=== PATIENT | female | born 1945 | race Hispanic/Latino ===

== ENCOUNTER 2020-05-10 06:31 | Day surgery (SDC) | payer OTHER ==
--- NOTE | 2020-05-08 12:47 | RAD REPORT ---
EXAM DESCRIPTION: RAD - Chest Pa And Lat (2 Views) - 05/08/2020 12:35 pm CLINICAL HISTORY: PRE OP FOR SURGERY, pending cardiac catheterization, history of bilateral breast c arcinoma and bilateral mastectomy COMPARISON: None TECHNIQUE: Frontal and lateral views of the chest were obtained. FINDINGS: The lungs are clear of a peripheral mass or consolidation. Fibrotic pattern is present. Ch ronic disease could potentially mask very minimal interstitial edema or infiltrate. Pattern is belie gina be baseline given the absence any acute respiratory symptoms. Granulomas are present. No hilar ma ss or lymphadenopathy. Heart size is normal and central vasculature is within normal limits. No pleu ral effusion or pneumothorax seen. Bones are osteopenic. No acute thoracic compression fracture fall or other acute bone process seen. No aortic abnormality. IMPRESSION: Fibrotic lung pattern with no acute cardiopulmonary finding.
[2020-05-08 12:55] LABS: Basophils % 0.7 % (0-1.3); Hematocrit 38.5 % (36.0-45.0); MPV 7.8 fL (7.6-11.3); RBC Red Blood Cell Count 3.37 M/uL (3.86-4.86)
[2020-05-08 12:56] LABS: Protime INR 1.06
[2020-05-08 13:04] LABS: Potassium 3.8 mmol/L (3.5-5.1)
[2020-05-08 13:55] LABS: Blood Morphology Comment NOTED (NOT SEEN); Macrocytosis 2+; Platelet Estimate ADEQ; White Blood Cell Scan OK (OK)
--- OUTSIDE RECORDS SUMMARY | 2020-05-10 06:33 | XMS REPORT | Continuity of Care Document ---
:1945 Author Organization [facility] t Address [address] [place] [address] Care Team Providers Name Role Phone Wendy VICENTE Primary Care Physician Unavailable Wendy VICENTE Attending Clinician Unavailable Payers Payer Name Policy Type Policy Number Effective Date Expiration Date Laura sparks MEDICARE PART A [id number] 2008 AND B 00:00:00 c3 creations [id number] 2013 00:00:00 Problems Condition Condition Condition Status Onset Resolution Last Treating Co mments Source Name Details Category Date Date Treatment Clinician Date Hypertensi Hypertensi Diagnosis Active [facility] Lactose Lactose Problem Active [facility] intoleranc intoleranc Genie kes - e e [facility] Other Other Problem Active [facility] osteoporos osteoporos Genie kes - is without is without Me moria current current l pathologic pathologic Ou tpati al al ent fracture fracture Clinic s Other iron Other iron Diagnosis Active [facility] deficiency deficiency Genie kes - anemia anemia [facility] History of History of Problem Active [facility] breast breast [facility] cancer [facility] Stage 3 Stage 3 Diagnosis Active [facility] chronic chronic [facility] kidney [facility] disease disease l [facility] Vitamin D Vitamin D Problem Active [facility] deficiency deficiency Genie kes - [facility]ics Hypertrigl Hypertrigl Problem Active [facility] yceridemia yceridemia Genie kes - [facility] Vitamin B Vitamin B Problem Active [facility] 12 12 [facility] - deficiency deficiency Me moria l [facility] Reactive Reactive Problem Active [facility] depression depression Genie kes - [facility] Mixed Mixed Problem Active [facility] stress and stress and Genie kes - urge urge Memoria urinary urinary l incontinen incontinen Ou tpati ce ent [facility] Hyperlipid Hyperlipid Diagnosis Active [facility] emia emia [facility] Acute Acute Problem Active [facility] cystitis cystitis [facility] - without without Memoria hematuria hematuria l [facility] Allergies, Adverse Reactions, Alerts Allergy Allergy Status Severity Reaction(s) Onset Inactive Treating Comm ents Source Name Type Date Date Clinician ingested Adverse Active IBS-D [facility] chlorine Reaction [facility] all Adverse Active itching [facility] narcotic Reaction [facility] Hydrocor Adverse Active itching [facility] tisone Reaction [facility] Medications Ordered Filled Start Stop Current Ordering Indication Dosage Frequency Signature Comments Components Source Medication Medication Date Date Medication? Clinician (SIG) Name Name Nystatin Nystatin Yes Steph [address] [facility] 8-22 [place] applicatio [facility] - 00:00: n to Memoria 00 affected l area [facility] Calcium 500 Calcium 500 Yes Steph [address] [facility] [place] after a [facility] Garlic Oil Garlic Oil Yes Steph as [facility] [place] directed [facility] Benadryl Benadryl Yes Steph [address] [facility] Allergy Allergy [place] bedtime [facility] [id number] [id number] Yes Steph as [facility] [place] directed [facility] Multi Multi Yes Steph as [facility] Complete Complete [place] directed Genie kes - Memoria l [facility] CoQ10 CoQ10 Yes Steph 1 1/[address] [facility] [place] [facility] Folic Acid Folic Acid Yes Steph [address] [facility] [place] [facility] Glucosamine Glucosamine Yes Steph [address] [facility] [place] [facility] Isosorbide Isosorbide Yes Steph [address] [facility] Mononitrate Mononitrate [place] in the [facility] ER morning [facility]oria l [facility] Vagifem Vagifem Yes Steph [address] [facility] [place] [facility] Niacin Niacin Yes Steph 1 capsule [facility] Flush-Free Flush-Free [place] Genie kes - Ex [facility] Tylenol # 3 Tylenol # 3 Yes Steph one to two [facility] [place] tab [facility] Fenofibrate Fenofibrate Yes Steph [address] [facility] [place] with food k[facility] Fish Oil Fish Oil Yes Steph [address] [place] [facility] Ginkoba Ginkoba Yes Steph as [facility] [place] directed k[facility] Amlodipine Amlodipine Yes Steph [address] [facility] Besylate Besylate [place] [facility] Magnesium Magnesium Yes Steph [address] [facility] [place] with a [facility] Iron Iron Yes Steph [address] [facility] [place] [facility]ics Hydrochloro Hydrochloro Yes Steph TAKE [address] [facility] thiazide thiazide [place] TABLET BY L ukes - MOUTH ONCE Memoria DAILY IN l THE [facility] MORNING ent Clinics Losartan Losartan Yes Steph TAKE [address] [facility] Potassium Potassium [place] TABLET BY [facility] - MOUTH ONCE Memoria DAILY l [facility] Oxybutynin Oxybutynin No Steph TAKE [address] [facility] Chloride Chloride 05-17 [place] TABLET BY [facility] - 00:00 MOUTH Memoria :00 TWICE l DAILY [facility] Vital Signs Vital Name Observation Time Observation Value Comments Source WEIGHT 2020-03-29 13:11:30 72 kg Procedures This patient has no known procedures. Encounters Start End Encounter Admission Attending Care Care Encounter Source Date/Time Date/Time Type Type Clinicians Facility Department ID 2021-03-29 2021-03-29 Outpatient ROBIN VICENTE MDA MDA [id number] 00:00:00 00:00:00 GUILLE grier 2020-04-25 2020-04-25 Outpatient Ana Rosa Booth [id number] [facility] 10:40:00 10:40:00 [facility] Medicine Outpati ent Clinics 2020-03-29 2020-03-29 Outpatient ROBIN VICENTE MDA MDA [id number] 12:57:15 14:19:09 GUILLE grier 2019-10-19 2019-10-19 [facility] [id number] 14:40:00 14:40:00 [facility] Medicine Outpati ent Clinics 2019-09-29 2019-09-29 [facility] [id number] [facility] 13:36:00 13:36:00 [facility] Medicine Outpati ent Clinics 2019-04-28 2019-04-28 [facility] [id number] [facility] 11:44:00 11:44:00 t [facility] l Outpati ent Clinics 2019-04-26 2019-04-26 [facility] [id number] 14:30:00 14:30:00 t [facility] Medicine Outpati ent Clinics 2019-04-22 2019-04-22 [facility] [id number] 11:20:00 11:20:00 t [facility] Medicine Outpati ent Clinics 2019-04-20 2019-04-20 [facility] [id number] [address] 14:00:00 14:00:00 t [facility] Medicine Outpati ent Clinics 2018-12-16 2018-12-16 [facility] [id number] 11:59:00 11:59:00 t [facility] Medicine Outpati ent Clinics 2018-05-04 2018-05-04 [facility] [id number] [address] 10:15:00 10:15:00 t [facility] Medicine Outpati ent Clinics 2018-04-26 2018-04-26 [facility] [id number] 09:00:00 09:00:00 t [facility] Medicine Outpati ent Clinics 2018-04-21 2018-04-21 [facility] [id number] 09:30:00 09:30:00 t [facility] Medicine Outpati ent Clinics Results This patient has no known results.
--- OUTSIDE RECORDS SUMMARY | 2020-05-10 06:33 | XMS REPORT ---
:1945 Author Organization [employer] Care Team Providers Name Role Phone Steph Trujillo Provider Role Unavailable Allergies, Adverse Reactions, Alerts Substance Reaction Event Type Hydrocortisone itching Drug Allergy ingested chlorine IBS-D Non Drug Allergy all narcotics itching Non Drug Allergy Problems Problem Type Condition Code Onset Dates Condition Statu s Problem History of breast cancer Z85.3 Act [place] Problem Mixed stress and urge urinary N39.46 Active incontinence Problem Other iron deficiency anemia D50.8 Active Problem Reactive depression F32.9 Active Problem Stage 3 chronic kidney disease N18.3 Active Problem Acute cystitis without hematuria N30.00 Active Problem Hyperlipidemia E78.5 Active Problem Vitamin D deficiency E55.9 Active Problem Hypertriglyceridemia E78.1 Active Problem Vitamin B 12 deficiency E53.8 Acti ve Assessment Other iron deficiency anemia D50.8 Active Assessment Hyperlipidemia E78.5 Active Problem Hypertension I10 Active Assessment Stage 3 chronic kidney disease N18.3 Active Problem Other osteoporosis without current M81.8 Active pathological fracture Assessment Hypertension I10 Active Problem Lactose intolerance E73.9 Active Medications Medication Code Code Instructions Start End Status Dosage System Date Date Multi Complete [facility] 61189873991 - Orally Active as d irected Fish Oil [facility] 34160255040 1000 MG Orally Active 1 ca psule Once a day Calcium 500 [facility] 75022080882 500-250-200 Active 1 ta blet MG-MG-UNIT after a meal Orally Once a day Vagifem [facility] 05121943767 10 MCG Vaginal Active 1 tab let Two times a Week Ginkoba [facility] 64957919880 40 MG Orally Active as dire cted Niacin Flush-Free Ex [facility] 92482657139 750 MG Orally A ctive [address] Once a day Benadryl Allergy ND 32431307042 25 MG Orally Active 1 tab at at HS bedtime Tylenol # 3 NDC 0 300/30mg PO Active one to t wo PRN tab Garlic Oil [facility] 10782281971 2 MG Orally Active as di rected Isosorbide [facility] 81200378850 30 MG Orally Active 1 ta blet in Mononitrate ER Once a day the mo rning Glucosamine ND 16651922294 500 MG Orally Active 1 capsule Three times a with a helen l day Oxybutynin Chloride ND 23540320519 5 MG Active TAKE 1 TABLET BY MOUTH TWICE DAILY Hydrochlorothiazide ND 83094763690 12.5 MG Active TAKE 1 TABLET BY MOUTH ONCE DAILY IN THE MORNING CoQ10 ND 06594553667 50 MG Orally Active 1 /2 t abs Once a day with a meal Fenofibrate ND 62691675161 160 MG Orally Active 1 tablet Once a day with food Folic Acid ND 07269499236 1 MG Orally Active 1 tab let Once a day Nystatin ND 47114649701 401776 UNIT/GM Mar Active 1 Externally , application Twice a day 2017 to affected area Amlodipine Besylate ND 36163131037 10 MG Orally Act [place] 1 tablet Once a day Losartan Potassium ND 60037078248 50 MG Active T FLORA 1 TABLET BY MOUTH ONCE DAILY Magnesium ND 01686167940 250 MG Orally Active 1 ta blet Once a day with a meal Iron ND 62651421607 28 MG Orally Active 1 table t Once a day K41-Yrztzw ND 77083521613 1 MG Orally Active as di rected Results No Known Results Summary Purpose [employer] Submission
[2020-05-10] MEDS ORDERED: HEPA 1000U/500MLS 2,000 UNIT/1,000 ML BAG IV ONE (06:55)
[2020-05-10] MEDS ORDERED: LIDOCAINE 1% MPF 30 ML VIAL ONE (06:55)
[2020-05-10] MEDS ORDERED: NA CHLORIDE 0.9% 500 ML ONE (07:05)
[2020-05-10] MEDS ORDERED: MIDAZOLAM HCL 2 MG/2 ML INJ ONE (07:33)
[2020-05-10] MEDS ORDERED: FENTANYL CITR 100 MCG/2 ML ONE (07:35)
[2020-05-10] MEDS ORDERED: NA CHLORIDE 0.9% 0 ML ONE (07:35)
[2020-05-10] MEDS ORDERED: ATROPINE SULF 1 MG/10 ML SYR IV ONE (07:35)
[2020-05-10] MEDS ORDERED: DIPHENHYDRAMINE 50 MG/ML VIAL ONE (07:43)
--- NOTE | 2020-05-10 09:49 | OP ---
Date of Procedure: 05/10/2020 Surgeon: Vicente Clemens MD Fork Truck Driver: Selina Rosenthal. Indications For Procedure: CAD, CVD, and PAD. She had an abnormal carotid Doppler, chest pain. Cla udication was positive arterial Doppler of the lower extremities. Procedure: Selective bilateral carotid angiogram, left heart catheterization with selective coronary arteriogram and abdominal angiogram. Description Of Procedure: The patient was brought to the screedman/laborer today as an inpatient, prepped and draped in the routine sterile fashion. She was given Benadryl, fentanyl, and Versed for sedation. 10 cc of xylocaine were used to anesthetize the right groin. Using the Seldinger technique, 6-Mongolian sheath was introduced in the right common femoral artery. Angio-Seal was used to close the case. I nitially, a JR4 catheter was introduced into the aortic arch. We selected the right common carotid a rtery and then the left common carotid artery. Angiography there showed a 60% left ICA and 90% right ICA. Following that, the JR4 was used to cannulate the RCA, which showed pchh-fi-kctopivy plaquing was codominant. We used an exchange length wire to place a JL4 into the left main, which was normal. Circumflex had mild plaquing, it was codominant. She had about 30% proximal LAD with calcification . The JL4 was removed. A pigtail catheter was inserted over the wire above the kidneys. Angiograph y there showed a 50% left renal artery stenosis, 50% distal aortic stenosis within an old stent and a 50% right common iliac artery. Complications: There were no complications. Estimated Blood Loss: 5 mL. Postoperative Diagnoses: Severe cerebral vascular disease on the right internal carotid artery. She had moderate renal artery stenosis, mild coronary artery disease, and moderate peripheral arterial d isease. Plan: Right carotid endarterectomy. The rest of her will be medical therapy for now unless symptoms worsen. Anesthesia: Total conscious sedation was 60 minutes. A CD will be sent to Dr. Harlan Varela for review and an appointment for carotid endarterectomy in the near future. Please note that the patient had elevated creatinine of 1.4, she got Mucomyst befor e the procedure. We will do Mucomyst after the procedure. I will hydrate her with normal saline 125 mL an hour for 8 hours and then after that, we will put her at . I will check a CBC and B MP in the morning. NORI/DONAVON Voice ID: [id number] Report ID: [id number]
[2020-05-10 10:37] VITALS: BMI 28.5
[2020-05-10] MEDS ORDERED: NITROGLYCERIN 0.4 MG/TAB SL PRN (11:00)
[2020-05-10] MEDS ORDERED: ACETAMINOPHEN 325 MG TABLET PO PRN (11:00)
[2020-05-10] MEDS ORDERED: NA CHLORIDE 0.9% 1,000 ML IV SCH (11:00)
--- NOTE | 2020-05-10 13:25 | HP ---
Date of Admission: 05/10/2020 History Of Present Illness: The patient is a 74-year-old white woman, who was admitted today after a ngiography for observation of her right groin and observation of her kidney function. Ms. Jimenez is 74, has a history of hypertension, dyslipidemia. She has a history of peripheral arterial disease , status post [id number]-xb-xlezl stent. Had an abnormal carotid Doppler. Had chest pain consistent with angina. She had an abnormal arterial Doppler. She was scheduled today for multiple studies. She u nderwent a catheterization, which showed minimal coronary artery disease. Abdominal angiogram showed 50% stenosis in the distal aorta, 50% stenosis in the left renal, 50% stenosis in the right common i liac with a stent. She had about a 60% to 70% left internal carotid and she had an 80% to 90% right internal carotid stenosis. Her creatinine is 1.4. She was given Mucomyst before and she will be giv en Mucomyst after the procedure. We decided to watch her as per her request because she has had issu es with her going after angiography. Past Medical History: As stated above. Allergies: NONE. Review of Systems: Negative. Social History: Negative. Family History: Negative. Medications: At home include Cozaar, Norvasc, fish oil, and multiple other vitamins. Physical Examination: Vital Signs: Stable, afebrile. HEENT: Negative. Neck: Revealed a carotid bruit on the right. No JVD. No thyromegaly. Chest: Clear. Cardiac: Revealed a regular rhythm and rate. No murmurs, gallops, or rubs. Abdomen: Benign. Extremities: Revealed no clubbing, cyanosis, or edema. Diagnostic Data: Normal except a creatinine of 1.4. Impression And Plan: 1.Carotid stenosis requiring right carotid endarterectomy. Left carotid will be observed. 2.Peripheral vascular disease. We will treat with medications for now. 3.Mild coronary artery disease. 4.Hypertension. 5.Dyslipidemia. 6.Renal insufficiency. We will observe her overnight. She will be at bedrest for 4-6 hours. CBC and BMP will be done in th e morning. She will be given another Mucomyst. Her surgery on the right carotid will be arranged as an outpatient. Dr. Telles will probably do the surgery. A CD will be sent to him today. I will disc harge Ms. Jimenez in the morning. NORI/DONAVON Voice ID: [id number]
[2020-05-11 04:06] LABS: Basophils % 0.5 % (0-1.3); Hematocrit 29.9 % (36.0-45.0); Lymphocytes % 33.5 % (15.3-44.8); MPV 7.8 fL (7.6-11.3); RBC Red Blood Cell Count 2.64 M/uL (3.86-4.86)
[2020-05-11 04:13] LABS: Potassium 3.8 mmol/L (3.5-5.1)
[2020-05-11 08:21] VITALS: BP 120/58; TEMP 98.5
[2020-05-11 08:27] VITALS: O2SAT 97
[2020-05-11] MEDS ORDERED: LOSARTAN POTASSIUM 50 MG TABLET PO SCH (09:00)
[2020-05-11] MEDS ORDERED: AMLODIPINE 10 MG TAB PO SCH (09:00)
--- NOTE | 2020-05-12 05:48 | DS ---
Date of Discharge: 05/11/2020 Hospital Course: Ms. Jimenez is a 74-year-old white woman, who was admitted yesterday following a carotid angiogram, heart catheterization, and abdominal angiogram. She was admitted because of her w orrying about her right groin because of previous complication as well as her renal function, which w as going to be watched. She was hydrated with 1 L of normal saline. She was given Mucomyst before a nd after the procedure. Today, her creatinine is slightly elevated at 1.52. She has no complaint. Her right groin site is intact. Yesterday, she was found to have severe right carotid artery stenosi s, had the plan for her to have a right carotid endarterectomy by Dr. Cornelius, she has CD and we will contact Dr. Cornelius to follow her in the very near future. She had some mild CAD and she had a 50% stenosis of her left renal, 50% stenosis of her distal aorta within a stent and she also had 50% sten osis in the right common iliac also within a stent. The patient discharge instruction was to follow up with Dr. Cornelius as soon as possible. Follow up with me in 2 weeks. Continue her present regimen at home. Have her do no heavy lifting in the next 48 hours. Maintain a low-fat, low-cholesterol di et. Her discharge medication were the same as her admission medication that include amlodipine, Tric or, losartan, hydrochlorothiazide. NORI/NAVJOTL Voice ID: [id number] Report ID: [id number]
== END 2020-05-11 10:27 | disposition home or self-care (01) ==
LOC: CCL 06:31 → 4TH 09:41 → CCL 05-11 10:27
DX: I65.23 Occlusion and stenosis of bilateral carotid arteries (principal); I70.211 Atherosclerosis of native arteries of extremities with intermittent claudication, right leg; I25.110 Atherosclerotic heart disease of native coronary artery with unstable angina pectoris; I70.1 Atherosclerosis of renal artery; T82.856A Stenosis of peripheral vascular stent, initial encounter; R01.1 Cardiac murmur, unspecified; I10 Essential (primary) hypertension; E78.5 Hyperlipidemia, unspecified; N28.9 Disorder of kidney and ureter, unspecified; Z87.891 Personal history of nicotine dependence; Z98.61 Coronary angioplasty status; Z20.828 Contact with and (suspected) exposure to other viral communicable diseases; Z82.49 Family history of ischemic heart disease and other diseases of the circulatory system
CPT/HCPCS: 85025 ×2; 80048 ×2; 36415 ×2; 85610; 85730; 71046; 75630; 93454; 36222; U0002; C1893; C1760; J1200; J2250; J3010; J7040; J1644; J0583

== ENCOUNTER 2021-04-09 15:55 | Emergency (ER) | payer OTHER ==
--- OUTSIDE RECORDS SUMMARY | 2021-04-09 16:01 | XMS REPORT | Continuity of Care Document ---
:1945 Author Organization [facility] t Address [address] [place] [address] Care Team Providers Name Role Phone CINTHIA, A Primary Care Physician Unavailable CINTHIA, A Attending Clinician Unavailable Trisha Vernon RN Attending Clinician Naa Cornelius MD Attending Clinician NAA CORNELIUS Attending Clinician Unavailable Estuardo Lorenzo MD Attending Clinician Daniel Callejas Attending Clinician Shalonda Romero MD Attending Clinician NAA CORNELIUS Admitting Clinician Unavailable Payers Payer Name Policy Type Policy Number Effective Date Expiration Source Date MEDICARE PART A AND B [id number] 2008 00:00:00 [employer] [id number] 2013 00:00:00 MEDICAREMEDICARE A [id number] 2008 ALEX Sanchez t [id number] 2008 00:00:00 [facility] M[facility] [id number] SUPPLEMENT/INDIVIDUAL 00:00:00 Dawna es - GENERIC MEDICARE Medical [id number]-PresentMedigap Problems Condition Condition Condition Status Onset Resolution Last Treating Co mments Source Name Details Category Date Date Treatment Clinician Date Stenosis Stenosis Disease Active [facility]28 [facility] - carotid carotid 00:00: Medical artery artery 00 Center Carotid Carotid Disease Active [facility] artery artery 05-28 kes - disease disease 00:00: Medical 00 Center Bilateral Bilateral Disease Active [facility] carotid carotid 05-14 [facility] artery artery 00:00: Medical occlusion occlusion 00 Cent er Essential Essential Disease Active [facility] hypertensi hypertensi 05-14 Genie kes - on on 00:00: Medical 00 [place] 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:00: Medical coronary coronary 00 Center artery of artery of [place] 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 Drug Active Itching, Itching [facility] Devices Allergy Other (See 02-01 with all Genie kes - Comments) 00:00: narcotic Medic al [address] [place] [address] Other Propensi Active Other (See Beta [facility] ty to Comments) 02-01 blockers [facility] - adverse 00:00: cause Medical reaction 00 extreme Center s fatigue ingested Adverse Active IBS-D [facility] chlorine Reaction [facility] Clinics all Adverse Active itching [facility] narcotic Reaction [facility] Clinics Hydrocor Adverse Active itching [facility] tisone Reaction [facility] Family History Family Member Diagnosis Comments Start Date Stop Date Source Natural father Heart disease [facility] Natural mother Cancer [facility] Center Natural mother Heart disease [facility] Natural mother Hypertension [facility] Social History Social Habit Start Date Stop Date Quantity Comments Source History of Current smoker ALEX Lemus es - tobacco use Medical Cente r Sex Assigned At [facility] Tobacco use and 2020-06-06 2020-06-06 Never used [facility] - exposure 00:00:00 00:00:00 Medical Center Alcohol intake 2020-06-06 2020-06-06 Current drinker ALEX castano [facility] - 00:00:00 00:00:00 of alcohol Medical Center (finding) Smoking Status Start Date Stop Date Source Former smoker 2020-06-06 00:00:00 2020-06-06 00:00:00 [facility] Medications Ordered Filled Start Stop Current Ordering Indication Dosage Frequency Signature Comments Components Source Medication Medication Date Date Medication? Clinician (SIG) Name Name mINOCYCLine 2019-08 100mg Q.5D Take [address] (DYNACIN) 0-27 03 tablet [facility] - 100 MG 00:00: 23:59 (100 mg Medical tablet 00 :00 total) by Center mouth 2 (two) times daily for 7 days. acetaminoph 2019-08 Yes 1{tbl} Take [address] en-codeine 0-07 tablet by Luke s - (TYLENOL 11:01: mouth Medical #3) 300-30 38 every 4 Center mg per (four) tablet hours as needed for Pain. cyanocobala 2019-08 Yes 1000ug Inject [facility] min 0-07 1,000 mcg [facility] - (VITAMIN 11:01: intramuscu Med ical B-12) 1,000 38 larly Center mcg/mL once. injection amLODIPine 2019-08 Yes 10mg QD Take [address] (NORVASC) 0-07 by mouth [facility] - 10 MG 11:01: daily. Medical tablet 38 Center losartan 2019-08 Yes 100mg QD Take [address] (COZAAR) 0-07 mg by [facility] - 100 MG 11:01: mouth Medical tablet 38 daily. [place] hydrochloro 2019-08 Yes 12.5mg QD Take 12.[address] thiazide 0-07 mg by [facility] - (HYDRODIURI 11:01: mouth Medic al L) 12.5 MG 38 daily. Center tablet folic acid 2019-08 Yes 1mg QD Take [address] (FOLVITE) 1 0-07 by mouth Luke s - MG tablet 11:01: daily. Medica l 38 [place] oxybutynin 2019-08 Yes 5mg Q.5D Take [address] (DITROPAN) 0-07 by mouth 2 Dawna es - 5 MG tablet 11:01: (two) Medic al 38 times Center daily . fenofibrate 2019-08 Yes 160mg QD Take [address] (TRIGLIDE,L 0-07 mg by [facility] - OFIBRA) 160 11:01: mouth Medic al MG tablet 38 daily. [place] estradiol 2019-[address] (VAGIFEM) 0-07 mcg [facility] - 25 mcg 11:01: vaginally Medica l vaginal 38 daily. [place] tablet nitrofurant 2019-08 Yes 100mg QD Take [address] oin, 0-07 mg by [facility] - macrocrysta 11:01: mouth Medic al l-monohydra 38 daily . Jamale faizan te, (MACROBID) 100 MG capsule garlic 2019-08 Yes Take by [facility] (GARLIC 0-07 mouth. [facility] - OIL) 1,000 11:01: Medical mg Cap 38 [place] ginkgo 2019-08 Yes Take by [facility] biloba 40 0-07 mouth. [facility] - mg Tab 11:01: Medical 38 [place] multivitami 2019-08 Yes 1{tbl} QD Take [address] n with 0-07 tablet by [facility] - minerals 11:01: mouth Medical tablet 38 daily. [place] ascorbic 2019-08 Yes 1000mg QD Take 1,[address] acid 0-07 mg by [facility] - (VITAMIN C) 11:01: mouth Medic al 1000 MG 38 daily. [place] tablet glucosamine 2019-08 Yes 1{tbl} Q.[id number] Take [address] -chondroiti 0-07 [id number] tablet by [facility] - n 500-400 11:01: 3D mouth 3 Medic al mg tablet 38 (three) Center times daily. niacin 500 2019-08 Yes 500mg Take [address] MG tablet 0-07 mg by [facility] - 11:01: mouth Medical 38 daily with Center breakfast. iron 30 mg 2019-08 Yes Take by [facility] Tab 0-07 mouth. [facility] - 11:01: Medical 38 [place] coenzyme 2019-08 Yes 100mg QD Take [address] Q10 100 mg 0-07 mg by [facility] - capsule 11:01: mouth Medical 38 daily. [place] cholecalcif 2019-08 Yes 5000U QD Take 5,[address] ankita, 0-07 Units by [facility] - vitamin D3, 11:01: mouth Medic al 5,000 unit 38 daily. [place] Tab magnesium 2019-08 Yes 250mg Take [address] 250 mg Tab 0-07 mg by [facility] - tablet 11:01: mouth. Medical 38 [place] isosorbide 2020- No 30mg Q.25D Take [address] dinitrate 9-14 09-14 by mouth 4 Dawna es - (ISORDIL) 11:22: 00:00 (four) Medic al 30 MG 43 :00 times Center tablet daily. ALPRAZolam Yes .5mg Take 0.[address] (XANAX) 0.5 9-08 mg by [facility] - MG tablet 00:00: mouth as Medi judson 00 needed. [place] isosorbide Yes Comments: [facility] mononitrate 4-11 | Filled Luke s - (IMDUR) 30 00:00: Date: Apr Me dical MG 24 hr 00 2018 Center tablet 12:00AM Duration: 90 Nystatin Nystatin Yes Steph [address] [facility] 8-22 [place] applicatio [facility] - 00:00: n to Memoria 00 affected l area [facility] Clinics Calcium 500 Calcium 500 Yes Steph [address] [place] after a [facility] - meal Memoria l [facility] ent [facility] Garlic Oil Garlic Oil Yes Steph as [facility] [place] directed [facility] Benadryl Benadryl Yes Steph [address] [facility] Allergy Allergy [place] bedtime [facility] [id number] Yes Steph as [facility] [place] directed [facility] Multi Multi Yes Steph as [facility] Complete Complete [place] directed Genie kes - [facility] Clinics CoQ10 CoQ10 Yes Steph 1 1/[address] [place] with a [facility]ukes - meal Memoria l [facility] ent [facility] Folic Acid Folic Acid Yes Steph [address] [place] [facility]ics Glucosamine Glucosamine Yes Steph [address] [place] with a [facility] - meal [facility] Clinics Isosorbide Isosorbide Yes Steph [address] Mononitrate Mononitrate [place] in the [facility] - ER ER morning [facility] Clinics Vagifem Vagifem Yes Steph [address] [place] [facility] Clinics Niacin Niacin Yes Steph 1 capsule [facility] Flush-Free Flush-Free [place] Genie kes - Ex [facility] Ex [facility] Clinics Tylenol # 3 Tylenol # 3 Yes Steph one to two [facility] [place] tab kes - [facility] Clinics Fenofibrate Fenofibrate Yes Steph [address] [place] with food [facility] Clin[facility] Fish Oil Fish Oil Yes Steph [address] [place] [facility] Yes Steph as [facility] [place] directed [facility] Clinics Amlodipine Amlodipine Yes Steph [address] Besylate Besylate [place] [facility] Clinics Magnesium Magnesium Yes Steph [address] [place] with a [facility]ukes - meal [facility] Clinics Iron Iron Yes Steph [address] [place] [facility] Clinics Hydrochloro Hydrochloro Yes Steph TAKE [address] thiazide thiazide [place] TABLET BY L ukes - MOUTH ONCE Memoria DAILY IN l THE [facility] MORNING ent Clinics Losartan Losartan Yes Steph TAKE [address] Potassium Potassium [place] TABLET BY [facility]ukes - MOUTH ONCE Memoria DAILY l [facility] ent Clinics Oxybutynin Oxybutynin Steph TAKE [address] Chloride Chloride 05-17 [place] TABLET BY [facility] - 00:00 MOUTH Memoria :00 TWICE l DAILY [facility] ent Clinics Vital Signs Vital Name Observation Time Observation Value Comments Source WEIGHT 2020-03-29 13:11:30 72 kg Systolic blood 2020-06-26 13:06:00 162 mm[Hg] [facility] Diastolic blood 2020-06-26 13:06:00 70 mm[Hg] [facility] Heart rate 2020-06-26 13:06:00 67 /min [facility] Body temperature 2020-06-26 13:06:00 36.22 Jillian [facility] Respiratory rate 2020-06-26 13:06:00 16 /min [facility] Body height 2020-06-26 13:06:00 157.5 cm [facility] Oxygen saturation in 2020-06-26 13:06:00 98 /min [facility] - Arterial blood by Medical Ce nter Pulse oximetry Body weight 2020-06-06 10:37:00 71.215 kg [facility] BMI 2020-06-06 10:37:00 28.72 kg/m2 [facility] Procedures Procedure Date / Time Performed Performing Clinician Sour e WOUND CULTURE + GRAM 2020-06-26 13:16:00 Namita Jarad Sinclair [facility] RHYTHM STRIP - SCAN 2020-05-30 14:20:36 Provider, [facility] CALCIUM, IONIZED 2020-05-29 11:35:00 Harlan Cornelius [facility] BASIC METABOLIC PANEL 2020-05-29 04:52:00 Shila Choi [facility] ([facility] CBC (HEMOGRAM ONLY) 2020-05-29 04:52:00 Shila Choi [facility] TISSUE EXAM 2020-05-28 08:50:00 Harlan Cornelius [facility] ENDARTERECTOMY,CAROTID 2020-05-28 07:05:[address] [facility] POCT-GLUCOSE METER 2020-05-28 05:59:00 Harlan Cornelius [facility] TRANSFUSION SERVICE 2020-05-15 18:34:15 Provider, [facility] REPORT SCAN [facility] CBC W/PLT COUNT & AUTO 2020-05-14 12:52:00 Shila Choi [facility] BASIC METABOLIC PANEL 2020-05-14 12:52:[address] [facility] (7) Medical Center TYPE AND SCREEN, 2020-05-14 12:52:[address] [facility] es - AUTOMATED Medical Center Plan of Care Planned Activity Planned Date Details Comments Source Future Scheduled 2020-05-01 INFLUENZA VACCINE (#1) [facility] - Test 00:00:00 [code = INFLUENZA Medical Ce nter VACCINE (#1)] Future Scheduled 2009-07-[address] [facility] ukes - Test 00:00:00 WELLNESS (YEAR 2 or Medical Center FIRST YEAR if no IPPE) [code = MEDICARE ANNUAL WELLNESS (YEAR 2 or FIRST YEAR if no IPPE)] Future Scheduled 2008 PNEUMOCOCCAL 65+ YRS [facility] - Test 00:00:00 (1 of 1 - Medical Center [id number] PCV13) [code = PNEUMOCOCCAL 65+ YRS (1 of 1 - [id number] PCV13)] Encounters Start End Encounter Admission Attending Care Care Encounter Source Date/Time Date/Time Type Type Clinicians Facility Department ID 2021-04-05 2021-04-05 [id number] 2021-03-29 2021-03-29 Outpatient ROBIN VICENTE MDA MDA [id number] 00:00:00 00:00:00 GUILLE grier 2021-03-20 2021-03-20 Outpatient [facility] [id number] ALEX Vidales 00:00:00 00:00:00 [facility] 2021-03-11 2021-03-11 [facility] [id number] ALEX Vidales 00:00:00 00:00:00 [facility] 2020-12-24 2020-12-24 [facility] [id number] [facility] 00[facility] 2020-12-21 2020-12-21 [facility] [id number] 2020-11-21 2020-11-21 [facility] [id number] [facility] 00[facility] 2020-10-25 2020-10-25 Outpatient [facility] [id number] [facility] 2020-10-03 2020-10-03 Out[facility] [id number] [facility] 2020-09-13 2020-09-13 Outpatient [facility] [id number] [facility] 2020-08-27 2020-08-27 Outpatient [facility] [id number] [facility] 2020-08-27 2020-08-27 Outpatient [facility] [id number] [facility] 2020-08-13 2020-08-13 Out[facility] [id number] [facility] 2020-08-13 2020-08-13 Outpatient [facility] [id number] [facility] 2020-08-13 2020-08-13 Outpatient [facility] [id number] [facility] 2020-06-04 2020-06-04 Outpatient [facility] [id number] [facility] 2020-05-10 2020-05-10 Out[address] [id number] 16:11:00 16:11:00 [facility] Outpati ent Clinics 2020-04-25 2020-04-25 [facility] [id number] [facility] 10:40:00 10:40:00 [facility] Medicine Outpati ent Clinics 2020-03-29 2020-03-29 Outpatient ROBIN VICENTE MDA MDA [id number] 12:57:15 14:19:09 GUILLE grier 2019-10-19 2019-10-19 [facility] [id number] 14:40:00 14:40:00 t [facility] Medicine Outpati ent Clinics 2019-09-29 2019-09-29 [facility] [id number] 13:36:00 13:36:00 t [facility] Medicine Outpati ent Clinics 2019-04-28 2019-04-28 [facility] [id number] 11:44:00 11:44:00 t [facility] Outpati ent Clinics 2019-04-26 2019-04-26 [facility] [id number] 14:30:00 14:30:00 t [facility] Medicine Outpati ent Clinics 2019-04-22 2019-04-22 [facility] [id number] 11:20:00 11:20:00 t [facility] Medicine Outpati ent Clinics 2019-04-20 2019-04-20 [facility] [id number] 14:00:00 14:00:00 t [facility] Medicine Outpati ent Clinics 2018-12-16 2018-12-16 [facility] [id number] 11:59:00 11:59:00 t [facility] Medicine Outpati ent Clinics 2018-05-04 2018-05-04 [facility] [id number] 10:15:00 10:15:00 t [facility] Medicine Outpati ent Clinics 2018-04-26 2018-04-26 [facility] [id number] 09:00:00 09:00:00 t [facility] Medicine Outpati ent Clinics 2018-04-21 2018-04-21 [facility] [id number] 09:30:00 09:30:00 [facility] Medicine Outpati ent Clinics Results Test Description Test Time Test Comments Results Result Comments Source Wound culture + gram stain 2020-06-29 10:21:00 Test Item Value Reference Range Interpretation Comme nts Result (test code = 6463-4) No growth Gram Stain Result (test code = 1123) No organisms seen GEOVANY (test code = GEOVANY) [facility] [id number] 10:21:00 Test Item Value Reference Range Interpretation Comments CULTURE (BEAKER) (test code No growth = 1095) GRAM STAIN RESULT (BEAKER) <1+ WBCs (test code = 1123) GRAM STAIN RESULT (BEAKER) No organisms seen (test code = 243868) Tissue [id number] 16:38:00 Test Item Value Reference Range Interpretation Comments Case Report (test code Surgical Pathology = 104) Report Case: [id number] Authorizing Provider: Harlan Corneilus, Collected: 05/28/2020 08:50 AM Ordering Location: [facility] Received: 05/28/2020 09:27 AM PERIOPERATIVE SERVICES Pathologist: Yaw Rothman MD Specimen: Plaque, Right Carotid Artery Plaque DIAGNOSIS (test code = k6orxOShMGLdh4daYGXviPR 3220) uZzEwMzNcZnRuYmpcdWMxIH hhpzKjLLomk9CdD4VvNfExF FxhbnNpXGRlZmxhbmcxMDMz EVA3rvBhQOEmSMjoDFJtNLr kJd1mcINsqCvvUjPsLDImt0 csgnTCiumxhNi2t1ajTEHfG hY2nWWqOGfhZ5jiofYbcENs EDDzOTg8jP12LGYgdS0dkIJ sIDtccmVkMFxncmVlbjBcYm z5SPJcI5wtXRKiWHAuR9MnE B9gJHGxWlx0ALY8ELT3zFuf v4G5iTRlkXVxaXhlRuQkMjU uEGUSl7XlMWd4eJksU0NxMO MlEwS3cEMdOARiJDmuCXVaX BGmouS6qV10HLcapvS4tCLz f5Ysz89zm594nM5vaGVsIOL 1YHWwEATchPXuHUVjNNU0FC AtyFHwD5t5DgIwiTCyV3L7E lRqzVVsF7A1TuTufTNvH9W9 JtSmmTSpPBIcpMKpYb2jbNO ovGUdvz9ivb83WQO9n4UfdU yrZUF2FKS9ByXnJp1pnUCyV BCpGP8dKuDnbQSwYBQfbh03 mQngCGsttzDyyN2eFfYiHCQ ugFUbKORkOQ2udPUhDSDzaR 5ucmxjXHBnYnJkcmhlYWRcc WchdeSuZk8mfTrnFNE8IKph Q5puqT3bTpM5MMznC5zudB6 dXOm0WAndhNR8GDLuhS2yGH 7rortaf6jjAhSlRY0fgcpje 2iiSnMwTC4dsin4v9hpKtBh OF3ezduga5qkUjSbYCsbHDK eisybIVCpa6IbxlqxDAHse3 SlI2LdjXlbQ70uyMbxG58sC FTkqZihaH2tkBeexA3qHaSn ZnMyMFxxbFxwbGFpblxmMFx mczIwXHBsYWluXGYxXGZzMj AgQVJURVJZLCBSSUdIVCBDQ VJPVElELCBFTkRBUlRFUkVD VX3JYZefdRBpPAEMSQZKMfy INXMLXJNWZ4SKGKZJJ2TZCn BQTEFRVUVccGFyfXtccnRmM Wyvf3PdSOpiMOSgLS8paTtl QQMuCS9qQRJdT9pogC6gqwh 0YsNbWPXgPoI2HAHmsbK8He o2MGKmKQwbk4vdd2GhLQXzO Uo0fAseEpJsFVVxb4ebybMy OfSrZFQgTTIqBCTbkNBhV29 4s6avv7gkltJzlUG9DBYwRK U3MSollgHofoJ9QEpofCDxT eO3NHfptzKbKNgpgqWeflVs Msc7SNJiC363YKM7sIyym7y xIDU7MZOlDINnQgVcKu7rnJ OtH520RSEbPXDXEYSxgJg4T FVxuiRfytUsnDIFy134P180 v7reLPMeccQwqCcVvaodb4d sS381BWVkpBUewiSzYmVqLJ YceWExfTC7UXDpGX7mpthmJ KggTBjlWWDjpoT1DMYuwMWx W1TgPWScAP0nblxaUEC0VRp uOMPkIWX4YyCcKHBxf6Ztro i4CgYxsr1ept23PYD0u6Gpt LdvSTQ7IXP4GjMpNm4kfFIe QCCpFL9zWiRfnBKwZNYllv7 0gScdTKloZQZ7WDHdhdYwa1 Zza8ekMoUvneHeT3hwF6QlX ZVuVBWcBJRbTmTpzhLlw2Rz q2YtkNZnhSw5e4hmFDJnLCS fkOsch2ofEBI2LTUreKIwA8 oubP3tNDEcTJ8nxfhuf1mhM GinRTxdQVIcyTG9gqK2SRXg pBIxR3JylS6iNHXjPSqiFTT pwgw4FgKrEu6nlEKdpFxkRG xzYmtwYWdlXHBnbmNvbnRcc GduZGVjXHBsYWluXHBsYWlu XGYwXGZzMjRccWxcbGFuZzE wMzNcaGljaFxmMVxkYmNoXG HuNQguT2czKgUqPuIaBrd6P MLjaRWkDAZaJsl0TINboSTv DRYWxWyddH0bPVIqsLliiV3 lqTD5ZZElriRbpDZOaU9fSJ ZSqO5hSpD6BpHkLqB1DPa8E TFccGFyfX0= CPT Code(s) (test code b9xgiIRnVLOemBHbZbXxXXQ = 3357) gECMcf3ytRZKkdKRgEhPiPx NcZnRuYmpcdWMxXGRlZmYwe 3tgp751lOBvd8xqHNAqTpZ4 jSMwBGRzkDHkX304v2aez9j hmlOztAR6DTUuHBP8ZSbosk WfkgV0MVhnbEJlIaH6SUtmt gTnOZenubCiipLfAou7PSQv M824TNV6tFbct0seERP3XRJ iUTJdPqJdSx7cyKEeL244FU ZlYFXRLRNstYn5NYOaunLri yFzkMOAp189X778v0miHYDo xsUfmMbLarwqs3zfP639YDF hcGVydzEyMjQwXHBhcGVyaD M9BAYkDU4qyfgeUlYsKC3ci sogCtBiKQ7djfh6LrOvFI6y cmdiNzIwXGhlYWRlcnkwXGZ sg4CmdhrcKF4aP1Dpk9S7mU 9maXRcZGVmdGFiNzIwXGZvc i3zgHTuSJyyz7BmHCS6ntS3 jSKthHYyGJJoAT16Aitla6Q wMgoiFKQ4JNYjliQhf9Nsk2 yvPuIxjlAnI4zkJ9EyDMEzN JNmXQOdAkDumsAec9Mdg8Ej tWUmcEg5p0vyYBJyQDZgqZi pf4ykELK8HAMtR3V7eFVae6 tzOXfkJSNrePF4cvuvQVdbW VGjxgC1ttsqQUcsDXKmaJL3 dbjfTAgzXHChYoM6kbbsGIn dHWTjNCH6OXihd538MEY0VM xzYmtwYWdlXHBnbmNvbnRcc GduZGVjXHBsYWluXHBsYWlu XGYwXGZzMjRccWxccGxhaW5 xFxQmEeMxLHhjCY6oIQKwZ0 sitGMsIKQlMCSqJ5keVbMgr F3ziYruCUumzvAjDId5XyK2 JlB6XCCqLUfyGAJ8 CLINICAL HISTORY (test k8anvJMuYOJraSNlKvBqOMM code = 3356) aEOSqa0daTWZzeIEyQcUbTg NcZnRuYmpcdWMxXGRlZmYwe 9zea385dBIfd1quBZTmVoW6 dFMnKFSmhLWnR850ZORhHKj xa5cwl7MqVCKcnFVti5S0CK BDigeldOk4pIadW23ny7A1N ybpW7pbJKZlUQZlP6OmPK1z LCMsTzs9BRQ7TCW7QKUgBYJ mZ9JqQT6uZQSidZOzWVc1c7 oflWecZIKwEPG7n1grKMtpg iLlAP1kmx0blGz8h2zonoPz PXHeCSGsrITZBWTcP0RliYd oQv3nuPc4jYwmIarfDQY6Jo r9JK2lbb35ydr2sGzwCKCeb oxfRrR2EXhvESZessgqMAe6 MFxtYXJnbDcyMFxtYXJncjc yMFxtYXJndDcyMFxtYXJnYj vdLCzvICHdMXU7CEsle283J YL8CNhpm8roz5bfgJEtOwl2 OJVsVdBmInkrATxqw0Frn7p xMSOltp6oRLM5fFHhwPcsl4 C4rDGtELRijTNpbtEyHGZtV yU7ZLrfEZ2jnt56QNUtXAJ3 be5ooJCalEznwwXlqUSsXPx vQ0EsQTGxe019TQKkM1BnFK Czv3N9wjOvBeXvYPWjbCV7b pB5PGQxUTm4uUSncwN4onYi qAXmT1zicM19FpUaaVBmZ7K znC47BqLkgVMfV7AbnE38Wg CzsKKcU8GmfN65QrArhGCrN JHwaKPhDs9eyOGiwFMdu0Bd bVBuKTrzG30nr357WOJiekO hV7sboIRslputzJFkvssaWG sutxY2ZCThDXVcQMktMVDyG GZzMjBcbGFuZzEwMzNcaGlj fInoDHclWfGlFBNbBMskI0l cZjFcZnMyMCBDYXJvdGlkIH D2UQ9jk8icKMCwgTcupIqjM XJ9 SPECIMEN SOURCE (test f3orrDMdDHAxhZAkWaRzNKL code = 3377) jJKQkg3qsGGEsyYYaGxXeDo NcZnRuYmpcdWMxXGRlZmYwe 8qts945jDBmc9ueMRPfMhO3 yKPrYPAynXTrX590CZNsJIr zl3egh3BbSMTdlZRci8C0WA MYlcfyiFf2oMutF85vx8M3H rncP6twWVBsGVGlZ5YhGC5l PHPhCaf6DPC3KEP4HPIyYUA cS9RqBZ0rNPOudTFyGGl3u8 wnkVrqAIXuWQU5n9wlITgfl jRlKX6adb4bbCc1u2eciiTl DVIiDWFcuMLIBJScS3FqkWg kRa7xqDz9gXtzFkusNFE0Qj q1UA9qvk85ixz6eHhzXYElo momJcE0KIktTEZtxjtzITd4 MFxtYXJnbDcyMFxtYXJncjc yMFxtYXJndDcyMFxtYXJnYj ktSHmfQWUzFMG8GVeyv860C GW9XHkfk1bkg1onkIEhIjw9 IPLhMuPhAidlBLrvy3Auw0d wYGAnwi6rSPT8iMCktXdqs2 Q4yTAuXGNbwRYslmRgEAMzI kA1MOzhDV7tqi65CYNpXVW3 st7jmPAbpGebihKjaMVoGCk oD2PuZQMti570VXNgS4CcDC Slh8W8lxQbJaYjCCTewAE6h kX9ZETlCBr5eDQragJ6nwGo oFEiV4iruO42YyTaaGTgG6N wnU16BkPtxZGhB6ShsD53Qt MbzKAeL1LilQ03VgMuxPToL OHbaFXrJs0mfYAacRTep1Uv nKCvMNqnI48mg096LFYqsfQ zX0uzeHLfpctksIAdocofVJ biciE5YXAcZZBnGEyyHBRuI GZzMjBcbGFuZzEwMzNcaGlj rUjtAFrhXqAfQPWrUYxoQ6b cZjFcZnMyMCBQbGFxdWVccG FyfQ== GROSS DESCRIPTION g4swfZDtGRUdoZYtPjScEIR (test code = 3366) gISAfp1tzXWWukHNnJfHeNq NcZnRuYmpcdWMxXGRlZmYwe 1ell007vGIfj8shEHBqNmY4 xIZeEGGadKYyL652y1fjl9l aftDdnYP3CBDpWEX6DOeotr LhyyO4QMfevRErPsB3PGjbr mYeVAccvuBokxGuNuc2QMEr O089JQY4bUevq5teBIN3WPN zHHGzFuRkGp2qvSHeD970RM HzYNTLEUSpnZd5DNVnoaGlt hMssDKLj296T850m6fxRXUw nvMcaRvNqhssc5fwU457GWP hcGVydzEyMjQwXHBhcGVyaD A6YWDtIN6hyxwrEuTiVH8on axeZpNbYN1qrhf5IwLgWD3u cmdiNzIwXGhlYWRlcnkwXGZ ji5AgjochCR4lH0Qcd0C4rT 9maXRcZGVmdGFiNzIwXGZvc t0wpYSyNJxng8DbSQV1hlV4 yMWrsUHpGCLrAN24Ggaea7X dVtkaIRU8KFKxycHhn4Bzi7 gfAxWcvvFnU2bfG7NqRHNyO NTpUQOkQeVbinAqe3Mhq3Nd oEBtlOg3m9soTHOwODDxfQh jw3uhIAT9ZHXeN3U9vUFzq8 gpACjqYSJlsUN0hhxmJLunC YDeknB2gaacIYzgWNCniBE6 ctbiIWyeTPEfXrH7qehwGIg eTJSlQTZ4KZwib174CTJ1ZP xzYmtwYWdlXHBnbmNvbnRcc GduZGVjXHBsYWluXHBsYWlu XGYwXGZzMjRccWxccGxhaW5 iImMyTjMzIUheJZ0tAEDiL7 jjsNOiRPOvVGQlT5xbAaOge Y6zdXvcIIhdvnYjWBLlH9Lj tmZoDEgsNCScjt5ewBnmXZp iNkVpCDTrg1e8pFW9sILyaO A7qDVpkYnwCH0czUCsCUYfP 9Ose3egkvGvqI1oASMsFP7h ICJyaWdodCBjYXJvdGlkIGF ydGVyeSBwbGFxdWUiIGlzIG HsEX49VMLbJJvcWSrvmxp0e WI0XJEzEaUfcDHuygTgtIXc ZXRlciwgdGFuLXllbGxvdyw gdHVidWxhciBwaWVjZSBvZi Icw3FdhMc3WSWeuTJuPcgjZ CBwbGFxdWUuIFRoZSBzcGVj iA0xuxMsyhMrrbMresFmlYI qtUAjsWR2PHEvjL4oWRCnGj 2gdD10nR5aLDUqJ2YjW7gxv SHjzOhcns3zPHHkWTisrACt fQ== MICROSCOPIC p9cvqKCaGBRayJFeUyYwTXU DESCRIPTION (test code wBUAlq4fjWZOwkXCiQcMnEb = 3371) NcZnRuYmpcdWMxXGRlZmYwe 9uwp844tSFan6giSIEbSvE5 wZXuQQRbnURbK266c7cvr8z lbpBbrNN1OHVnFUH2GXxvhi RnnlK9HXejjYGcXnO7NOniw cIcKKwvlrWkoiFlDve1XQAn R248JKC8bQlgp9pzOEV5JVH cOTIjVvNsFi3jlVVfE373ZN EdJFLPUOGguTy0IYWnxwFlj oYjtITTw060K210w2dmOWRs jsXodLaCohnjl4knW803UBD hcGVydzEyMjQwXHBhcGVyaD G7DDVxOU8csxgrAhSlXC6si bfaAbWeQX3koun9XuHvII6d cmdiNzIwXGhlYWRlcnkwXGZ rq8RvidpuZG4eR2Xmc0H0rU 9maXRcZGVmdGFiNzIwXGZvc h7qtHLcPQyba7ObNRX1ccE5 cYPiuQMnPQElHW58Berks4R yBajkJCD7UOFdziVkz0Kmq1 wtSoHvupUiY8wnR0AdPQGxB GGlPYAeXyAenbLrp2Khn6Ye jFBtaYu5n6tkLAQrNJBacWf eo9ftKNV7GYSoT4V2iVBcl0 ppAIweJJQkqEB7qikdILqgP ICpwzK0glaaLBtdOJNofGU2 psjrSMhuZWFwEfS1hcbnAHg lXHMkRRO2CMfms049PCY0MJ xzYmtwYWdlXHBnbmNvbnRcc GduZGVjXHBsYWluXHBsYWlu XGYwXGZzMjRccWxccGxhaW5 uUmZnMkDkZDleKW2hZMUvH6 cetWGvRFSbPPIiB3cvOoNua A0vfZgfCNljayTcPZJtoqLh ab3pJErnDIT3 [facility] HospitalTISS[facility] [id number] 16:38:00Surgical Pathology Report Case: [id number] Authorizing Provider: Harlan Cornelius, Collected: 05/28/2020 08:50 AM OrderingLocation: [facility] Received: 05/28/2020 09:27 AM PERIOPERATIVE SERVICES Pathologist: Yaw Rothman MD Specimen: Plaque, Right Carotid Artery Plaque ARTERY, RIGHT CAROTID, ENDARTERECTOMY:CALCIFIC ATHEROSCLEROTIC PLAQUE Signing Pathologist Direct Phone Line: [phone] signed by Yaw Rothman MD on 06/01/2020 at 4:38 [id number]; [id number] stenosis, rightPlaqueReceived in formalin labeled with the patient's name, accession number and "right carotid artery plaque" is a 1.9 cm in length x 0.6 cm in diameter, lopez-yellow, tubular piece of focally calcified plaque. The specimen is entirely submitted in A1 following decalcification. PA/ewPerformedCalcium, [id number] 12:04:00 Test Item Value Reference Range Interpretation Comments Calcium, Ion (test code = 1994-3) 1.20 mmol/L 1.12-1.27 pH, Blood (test code = 73248-1) 7.37 [facility] HospitalCALCI[facility], [id number] 12:04:00 Test Item Value Reference Range Interpretation Comments CALCIUM IONIZED (BEAKER) (test 1.20 mmol/L 1.12-1.27 code = 698) PH, BLOOD (BEAKER) (test code = 7.37 1810) Basic Metabolic [id number] 06:59:00 Test Item Value Reference Range Interpretation Comments Sodium (test code = 138 meq/L 201-130 0345-2) Potassium (test code = 4.3 meq/L 3.5-5.1 2823-3) Chloride (test code = 106 meq/L 98-107 2075-0) CO2 (test code = 23 meq/L 22-29 2028-9) BUN (test code = 26 mg/dL 7-21 H 3094-0) Creatinine (test code 1.33 mg/dL 0.57-1.25 H = 2160-0) Glucose (test code = 137 mg/dL 70-105 H 2345-7) Calcium (test code = 8.9 mg/dL 8.4-10.2 56004-5) EGFR (test code = 39 mL/min/1.73 [place] [address]-5) NOT ACCURATE CREATININE CLEARANCE IN PREDICTING GLOMERULAR FILTRATION RATE . ESTIMATED GFR I S NOT APPLICABLE FOR DIALYSIS PATIENTS. GEOVANY (test code = GEOVANY) Metrology Manager ID - EDASI Lab Interpretation Abnormal (test code = 87735-7) [facility] MET[facility] [id number] 06:59:00 Test Item Value Reference Range Interpretation Comments SODIUM (BEAKER) 138 meq/L 136-145 (test code = 381) POTASSIUM (BEAKER) 4.3 meq/L 3.5-5.1 (test code = 379) CHLORIDE (BEAKER) 106 meq/L 98-107 (test code = 382) CO2 (BEAKER) (test 23 meq/L -29 code = 355) BLOOD UREA NITROGEN 26 mg/dL 7-21 H (BEAKER) (test code = 354) CREATININE (BEAKER) 1.33 mg/dL 0.57-1.25 H (test code = 358) GLUCOSE RANDOM 137 mg/dL 70-105 H (BEAKER) (test code = 652) CALCIUM (BEAKER) 8.9 mg/dL 8.4-10.2 (test code = 697) EGFR (BEAKER) (test 39 mL/min/1.73 ESTIMA CANDIS GFR IS code = 1092) sq m NOT ACCURATE CREATININE CLEARANCE IN PREDICTING GLOMERULAR FILTRATION RATE . ESTIMATED GFR I S NOT APPLICABLE FOR DIALYSIS PATIEN TS. Metrology Manager ID - [id number] (Hemogram only)2020-05-29 06:37:00 Test Item Value Reference Range Interpretation Comments WBC (test code = 6690-2) 9.2 See_Comment [A utomated message] The system Chairish generated this result transmitted ref erence range: 3.5 - 10 .5 K/L. The refe rence range was not u sed to interpret this result as normal/abnor mal. RBC (test code = 789-8) 2.63 See_Comment L [Au tomated message] The system Chairish generated this result transmitted ref erence range: 3.93 - 5 .22 M/L. The refe rence range was not u sed to interpret this result as normal/abnor mal. MCHC (test code = 786-4) 31.5 See_Comment L [A utomated message] The system Chairish generated this result transmitted ref erence range: 32.2 - 3 5.5 GM/DL. The refe rence range was not u sed to interpret this result as normal/abnor mal. Hematocrit (test code = 30.5 % 34.1-44.9 L 4544-3) MCV (test code = 787-2) 116.0 fL 79.4-94.8 H MCH (test code = 785-6) 36.5 pg 25.6-32.2 H RDW (test code = 788-0) 12.4 % 11.7-14.4 Platelets (test code = 146 See_Comment L [Aut omated message] 777-3) The system Chairish generated this result transmitted ref erence range: 150 - 45 0 K/CU MM. The referen ce range was not u sed to interpret this result as normal/abnor mal. MPV (test code = 10.0 fL 9.4-12.3 17308-1) nRBC (test code = 413) 0 See_Comment [Aut omated message] The system Chairish generated this result transmitted ref erence range: 0 - 0 /1 00 WBC. The refere nce range was not u sed to interpret this result as normal/abnor mal. Lab Interpretation (test Abnormal code = 66365-2) [facility]2020-05-29 06:37:00 Test Item Value Reference Range Interpretation Comments WHITE BLOOD CELL COUNT (BEAKER) 9.2 K/ L 3.5-10.5 (test code = 775) RED BLOOD CELL COUNT (BEAKER) 2.63 M/ L 3.93-5.22 L (test code = 761) HEMOGLOBIN (BEAKER) (test code = 9.6 GM/DL 11.2-15.7 L 410) HEMATOCRIT (BEAKER) (test code = 30.5 % 34.1-44.9 L 411) MEAN CORPUSCULAR VOLUME (BEAKER) 116.0 fL 79.4-94.8 H (test code = 753) MEAN CORPUSCULAR HEMOGLOBIN 36.5 pg 25.6-32.2 H (BEAKER) (test code = 751) MEAN CORPUSCULAR HEMOGLOBIN CONC 31.5 GM/DL 32.2-35.5 L (BEAKER) (test code = 752) RED CELL DISTRIBUTION WIDTH 12.4 % 11.7-14.4 (BEAKER) (test code = 412) PLATELET COUNT (BEAKER) (test 146 K/CU MM 150-450 L code = 756) MEAN PLATELET VOLUME (BEAKER) 10.0 fL 9.4-12.3 (test code = 754) NUCLEATED RED BLOOD CELLS 0 /100 WBC 0-0 (BEAKER) (test code = 413) POC-Glucose [id number] 06:11:00 Test Item Value Reference Range Interpretation Comments POC-Glucose Meter (test 112 mg/dL 70-110 H : TE STED AT [facility] code = 1538) [address] [facility], 7[address] 30: Metrology Manager/Techni marilee ID = [id number] for ASHA, MAXIMINOYST AL Lab Interpretation (test Abnormal code = 60270-4) [facility] HospitalPO[facility]UCOSE [id number] 06:11:00 Test Item Value Reference Range Interpretation Comments POC-GLUCOSE METER 112 mg/dL 70-110 H : TESTED A T [facility] [address] (BEAKER) (test code [facility], = 1538) [address]: Metrology Manager/Techni marilee ID = [id number] for JORD AN, LACRYSTAL BASIC METABOLIC [id number] 18:23:00 Test Item Value Reference Range Interpretation Comments SODIUM (BEAKER) 137 meq/L 136-145 (test code = 381) POTASSIUM (BEAKER) 4.3 meq/L 3.5-5.1 (test code = 379) CHLORIDE (BEAKER) 109 meq/L 98-107 H (test code = 382) CO2 (BEAKER) (test 19 meq/L 22-29 L code = 355) BLOOD UREA NITROGEN 29 mg/dL 7-21 H (BEAKER) (test code = 354) CREATININE (BEAKER) 1.30 mg/dL 0.57-1.25 H (test code = 358) GLUCOSE RANDOM 113 mg/dL 70-105 H (BEAKER) (test code = 652) CALCIUM (BEAKER) 10.1 mg/dL 8.4-10.2 (test code = 697) EGFR (BEAKER) (test 40 mL/min/1.73 ESTIMA CANDIS GFR IS code = 1092) sq m NOT ACCURATE CREATININE CLEARANCE IN PREDICTING GLOMERULAR FILTRATION RATE . ESTIMATED GFR I S NOT APPLICABLE FOR DIALYSIS PATIEN TS. Metrology Manager ID - FSEType and screen, [id number] 15:02:00 Test Item Value Reference Range Interpretation Comments ABO/RH AUTOMATED (BEAKER) (test AB POSITIVE code = 2260) Ab Scrn (test code = 890-4) NEGATIVE [facility] with platelet count + automated [id number] 13:23:00 Test Item Value Reference Range Interpretation Comments WBC (test code = 6690-2) 6.9 See_Comment [A utomated message] The system Chairish generated this result transmitted ref erence range: 3.5 - 10 .5 K/L. The refe rence range was not u sed to interpret this result as normal/abnor mal. RBC (test code = 789-8) 3.14 See_Comment L [Au tomated message] The system Chairish generated this result transmitted ref erence range: 3.93 - 5 .22 M/L. The refe rence range was not u sed to interpret this result as normal/abnor mal. MCHC (test code = 786-4) 31.4 See_Comment L [A utomated message] The system Chairish generated this result transmitted ref erence range: 32.2 - 3 5.5 GM/DL. The refe rence range was not u sed to interpret this result as normal/abnor mal. Hematocrit (test code = 36.9 % 34.1-44.9 4544-3) MCV (test code = 787-2) 117.5 fL 79.4-94.8 H MCH (test code = 785-6) 36.9 pg 25.6-32.2 H RDW (test code = 788-0) 12.8 % 11.7-14.4 Platelets (test code = 152 See_Comment [Aut omated message] 777-3) The system Chairish generated this result transmitted ref erence range: 150 - 45 0 K/CU MM. The referen ce range was not u sed to interpret this result as normal/abnor mal. MPV (test code = 9.5 fL 9.4-12.3 59861-5) nRBC (test code = 413) 0 See_Comment [Aut omated message] The system Chairish generated this result transmitted ref erence range: 0 - 0 /1 00 WBC. The refere nce range was not u sed to interpret this result as normal/abnor mal. % Neutros (test code = 72 % 429) % Lymphs (test code = 23 % 430) % Monos (test code = 5 % 431) % Eos (test code = 432) 0 % % Baso (test code = 437) 0 % # Neutros (test code = 4.95 See_Comment [Aut omated message] 670) The system Chairish generated this result transmitted ref erence range: 1.56 - 6 .13 K/L. The refe rence range was not u sed to interpret this result as normal/abnor mal. # Lymphs (test code = 1.57 See_Comment [Auto mated message] 414) The system Chairish generated this result transmitted ref erence range: 1.18 - 3 .74 K/L. The refe rence range was not u sed to interpret this result as normal/abnor mal. # Monos (test code = 0.33 See_Comment [Autom ated message] 415) The system Chairish generated this result transmitted ref erence range: 0.24 - 0 .36 K/L. The refe rence range was not u sed to interpret this result as normal/abnor mal. # Eos (test code = 416) 0.00 See_Comment L [Au tomated message] The system Chairish generated this result transmitted ref erence range: 0.04 - 0 .36 K/L. The refe rence range was not u sed to interpret this result as normal/abnor mal. # Baso (test code = 417) 0.03 See_Comment [A utomated message] The system Chairish generated this result transmitted ref erence range: 0.01 - 0 .08 K/L. The refe rence range was not u sed to interpret this result as normal/abnor mal. Immature 0 % 0-1 Granulocytes-Relative (test code = 2801) Lab Interpretation (test Abnormal code = 26074-5) [facility] W/PLT COUNT & AUTO [id number] 13:23:00 Test Item Value Reference Range Interpretation Comments WHITE BLOOD CELL COUNT (BEAKER) 6.9 K/ L 3.5-10.5 (test code = 775) RED BLOOD CELL COUNT (BEAKER) 3.14 M/ L 3.93-5.22 L (test code = 761) HEMOGLOBIN (BEAKER) (test code = 11.6 GM/DL 11.2-15.7 410) HEMATOCRIT (BEAKER) (test code = 36.9 % 34.1-44.9 411) MEAN CORPUSCULAR VOLUME (BEAKER) 117.5 fL 79.4-94.8 H (test code = 753) MEAN CORPUSCULAR HEMOGLOBIN 36.9 pg 25.6-32.2 H (BEAKER) (test code = 751) MEAN CORPUSCULAR HEMOGLOBIN CONC 31.4 GM/DL 32.2-35.5 L (BEAKER) (test code = 752) RED CELL DISTRIBUTION WIDTH 12.8 % 11.7-14.4 (BEAKER) (test code = 412) PLATELET COUNT (BEAKER) (test 152 K/CU MM 150-450 code = 756) MEAN PLATELET VOLUME (BEAKER) 9.5 fL 9.4-12.3 (test code = 754) NUCLEATED RED BLOOD CELLS 0 /100 WBC 0-0 (BEAKER) (test code = 413) NEUTROPHILS RELATIVE PERCENT 72 % (BEAKER) (test code = 429) LYMPHOCYTES RELATIVE PERCENT 23 % (BEAKER) (test code = 430) MONOCYTES RELATIVE PERCENT 5 % (BEAKER) (test code = 431) EOSINOPHILS RELATIVE PERCENT 0 % (BEAKER) (test code = 432) BASOPHILS RELATIVE PERCENT 0 % (BEAKER) (test code = 437) NEUTROPHILS ABSOLUTE COUNT 4.95 K/ L 1.56-6.13 (BEAKER) (test code = 670) LYMPHOCYTES ABSOLUTE COUNT 1.57 K/ L 1.18-3.74 (BEAKER) (test code = 414) MONOCYTES ABSOLUTE COUNT (BEAKER) 0.33 K/ L 0.24-0.36 (test code = 415) EOSINOPHILS ABSOLUTE COUNT 0.00 K/ L 0.04-0.36 L (BEAKER) (test code = 416) BASOPHILS ABSOLUTE COUNT (BEAKER) 0.03 K/ L 0.01-0.08 (test code = 417) IMMATURE GRANULOCYTES-RELATIVE 0 % 0-1 PERCENT (BEAKER) (test code = 8924)
--- NOTE | 2021-04-09 18:23 | RAD REPORT ---
EXAM DESCRIPTION: US - Extremity Venous Uni Ltd - 04/09/2021 6:14 pm CLINICAL HISTORY: PAIN Leg swelling and edema. COMPARISON: No comparisons FINDINGS: Right lower extremity venous system was interrogated with Doppler technique. Normal flow, compressibility and augmentation was noted. There is no DVT present. IMPRESSION: No evidence of right lower extremity deep venous thrombosis.
--- NOTE | 2021-04-09 18:33 | ER ---
Nurse's Notes [facility] Name: Toña Jimenez Age: 75 yrs Sex: Female : 1945 Arrival Date: 04/09/2021 Time: 15:59 Bed 30 Private MD: Diagnosis: Local infection of the skin and subcutaneous tissue, unspecified Presentation: 04/09 16:26 Chief complaint: Patient states: Red swollen spot on right thigh. Coronavirus screen: kg Client denies travel out of the [place] in the last 14 days. At this time, unable to obtain information related to travel outside the [place] At this time, the client does not indicate any symptoms associated with coronavirus-19. Ebola Screen: Patient negative for fever greater than or equal to 101.5 degrees Fahrenheit, and additional compatible Ebola Virus Disease symptoms Patient denies exposure to infectious person. Patient denies travel to an Ebola-affected area in the 21 days before illness onset. Initial Sepsis Screen: Does the patient meet any 2 criteria? No. Patient's initial sepsis screen is negative. Does the patient have a suspected source of infection? No. Patient's initial sepsis screen is negative. Risk Assessment: Do you want to hurt yourself or someone else? Patient reports no desire to harm self or others. Onset of symptoms was April 06, 2021. 16:26 Method Of Arrival: Wheelchair kg 16:26 Acuity: JEAN 3 kg Triage Assessment: 16:29 General: Appears in no apparent distress. Behavior is calm, cooperative, appropriate kg for age, quiet. Pain: Denies pain. Historical: - Allergies: 16:29 All narcotics - "Give's me a rash"; kg - Home Meds: 16:29 isosorbide mononitrate 30 mg Oral Tb24 1 tab once daily [Active]; oxybutynin chloride 5 kg mg Oral tab 1 tab 2 times per day [Active]; amlodipine 10 mg tab 1 tab once daily [Active]; losartan 100 mg oral tab 1 tab once daily [Active]; - PMHx: 16:29 End stage renal disease; Hypertensive disorder; Hypercholesterolemia; Breast CA; kg Carotid Endarterectomy; - PSHx: 16:29 Appendectomy; Total abdominal hysterectomy; Multiple GI sx; Stent in abdominal aorta, kg iliacs; renal stents; Mastoidectomy; - Immunization history:: Adult Immunizations up to date, Client reports receiving the 2nd dose of the Covid vaccine, Date received: October 19, 2020 Moderna Client reports receiving the 1st dose of the Covid vaccine, September 12, 2020 Modern. - Social history:: Smoking status: Patient denies any tobacco usage or history of. Patient uses alcohol, on a daily basis. Screenin:37 Abuse screen: Denies threats or abuse. Denies injuries from another. Nutritional kg screening: No deficits noted. Tuberculosis screening: No symptoms or risk factors identified. Fall Risk No fall in past 12 months (0 pts). No secondary diagnosis (0 pts). No IV (0 pts). Ambulatory Aid- None/Bed Rest/Nurse Assist (0 pts). Gait- Weak (10 pts.). Mental Status- Oriented to own ability (0 pts). Total Mendez Fall Scale indicates No Risk (0-24 pts). Vital Signs: 16:26 BP 135 / 104; Pulse 77; Resp 20; Temp 97.6(TE); Pulse Ox 100% ; Weight 57.61 kg (R); kg Height 5 ft. 2 in. (157.48 cm); Pain 0/10; 16:26 Body Mass Index 23.23 (57.61 kg, 157.48 cm) kg ED Course: 15:59 Patient arrived in ED. mr 16:29 Triage completed. kg 16:29 Arm band placed on. kg 16:37 Patient has correct armband on for positive identification. kg 16:37 No provider procedures requiring assistance completed. kg 16:44 Maximiliano Guidry PA is PHCP. jr8 16:44 Joseph Soto MD is Attending Physician. jr8 18:14 Extremity Venous Unilateral Ltd In Process Unspecified. EDMS Administered Medications: No medications were administered Outcome: 18:32 Discharge ordered by . jr8 19:05 Patient left the ED. ld1 Signatures: Dispatcher [employer] EDMS Rafaela Abdi mr Maximiliano Guidry PA PA jr8 Pao Diehl, RN RN ld1 Oneida Santana RN RN kg
--- NOTE | 2021-04-09 18:33 | EDPHYS ---
Physician Documentation [facility] Name: Toña Jimenez Age: 75 yrs Sex: Female : 1945 Arrival Date: 04/09/2021 Time: 15:59 Bed 30 Private MD: ED Physician Joseph Soto HPI: 04/09 18:24 This 75 yrs old Female presents to ER via Wheelchair with complaints of Leg jr8 Swelling, Leg Pain. 18:24 Onset: The symptoms/episode began/occurred gradually, 3 day(s) ago. Modifying factors: jr8 The symptoms are alleviated by nothing. the symptoms are aggravated by movement. Associated signs and symptoms: The patient has no apparent associated signs or symptoms. Severity of symptoms: At their worst the symptoms were mild, in the emergency department the symptoms are unchanged. The patient has not experienced similar symptoms in the past. The patient has not recently seen a physician. Patient stated that she noticed a red area to the inner right thigh about 3 days ago. Since then has maintained in size but is become more painful and not going away.. Historical: - Allergies: 16:29 All narcotics - "Give's me a rash"; kg - Home Meds: 16:29 isosorbide mononitrate 30 mg Oral Tb24 1 tab once daily [Active]; oxybutynin chloride 5 kg mg Oral tab 1 tab 2 times per day [Active]; amlodipine 10 mg tab 1 tab once daily [Active]; losartan 100 mg oral tab 1 tab once daily [Active]; - PMHx: 16:29 End stage renal disease; Hypertensive disorder; Hypercholesterolemia; Breast CA; kg Carotid Endarterectomy; - PSHx: 16:29 Appendectomy; Total abdominal hysterectomy; Multiple GI sx; Stent in abdominal aorta, kg iliacs; renal stents; Mastoidectomy; - Immunization history:: Adult Immunizations up to date, Client reports receiving the 2nd dose of the Covid vaccine, Date received: October 19, 2020 Client reports receiving the 1st dose of the Covid vaccine, September 12, 2020. - Social history:: Smoking status: Patient denies any tobacco usage or history of. Patient uses alcohol, on a daily basis. ROS: 18:24 Eyes: Negative for injury, pain, redness, and discharge, ENT: Negative for injury, jr8 pain, and discharge, Neck: Negative for injury, pain, and swelling, Cardiovascular: Negative for chest pain, palpitations, and edema, Respiratory: Negative for shortness of breath, cough, wheezing, and pleuritic chest pain, Abdomen/GI: Negative for abdominal pain, nausea, vomiting, diarrhea, and constipation, Back: Negative for injury and pain, MS/Extremity: Negative for injury and deformity, Neuro: Negative for headache, weakness, numbness, tingling, and seizure. 18:24 Skin: Positive for erythema, swelling, of the Inner right thigh. Exam: 18:24 Constitutional: This is a well developed, well nourished patient who is awake, alert, jr8 and in no acute distress. Cardiovascular: Regular rate and rhythm with a normal S1 and S2. No gallops, murmurs, or rubs. Normal PMI, no JVD. No pulse deficits. Respiratory: Lungs have equal breath sounds bilaterally, clear to auscultation and percussion. No rales, rhonchi or wheezes noted. No increased work of breathing, no retractions or nasal flaring. Abdomen/GI: Soft, non-tender, with normal bowel sounds. No distension or tympany. No guarding or rebound. No evidence of tenderness throughout. Back: No spinal tenderness. No costovertebral tenderness. Full range of motion. MS/ Extremity: Pulses equal, no cyanosis. Neurovascular intact. Full, normal range of motion. Neuro: Awake and alert, GCS 15, oriented to person, place, time, and situation. Cranial nerves II-XII grossly intact. Motor strength 5/5 in all extremities. Sensory grossly intact. Cerebellar exam normal. Normal gait. 18:24 Skin: Patient has a 7.5 cm area of redness with moderate tenderness to palpation with mild swelling noted to the inner right thigh. No defined fluctuant region. No palpable cord.. Vital Signs: 16:26 BP 135 / 104; Pulse 77; Resp 20; Temp 97.6(TE); Pulse Ox 100% ; Weight 57.61 kg (R); kg Height 5 ft. 2 in. (157.48 cm); Pain 0/10; 16:26 Body Mass Index 23.23 (57.61 kg, 157.48 cm) kg MDM: 16:48 Patient medically screened. [facility] 18:24 Data reviewed: vital signs, nurses notes, radiologic studies, ultrasound, and as a jr8 result, I will discharge patient. Data interpreted: Pulse oximetry: on room air is 100 %. Interpretation: normal. Counseling: I had a detailed discussion with the patient and/or guardian regarding: the historical points, exam findings, and any diagnostic results supporting the discharge/admit diagnosis, radiology results, the need for outpatient follow up, a family practitioner, to return to the emergency department if symptoms worsen or persist or if there are any questions or concerns that arise at home. ED course: Discussed with patient no deep venous thrombosis noted. We will put her on antibiotics. Needs to follow-up with primary care physician within the next few days. If worse to come back.. 04/09 16:27 Order name: US Extremity Venous Unilateral Ltd; Complete Time: 18:23 kb Administered Medications: No medications were administered Disposition Summary: 04/09/21 18:32 Discharge Ordered Location: Home jr8 Problem: new jr8 Symptoms: have improved jr8 Condition: Stable jr8 Diagnosis - Local infection of the skin and subcutaneous tissue, unspecified jr8 Followup: jr8 - With: Private Physician - When: 5 - 6 days - Reason: Recheck today's complaints, Continuance of care, Re-evaluation by your physician Discharge Instructions: - Discharge Summary Sheet jr8 - Cellulitis, Adult jr8 Forms: - Medication Reconciliation Form jr8 - Thank You Letter jr8 - Antibiotic Education jr8 - Prescription Opioid Use jr8 Prescriptions: - Cephalexin 500 mg Oral Capsule - take 1 capsule by ORAL route every 8 hours for 10 days; 30 capsule; Refills: 0, jr8 Product Selection Permitted Addendum: 04/10/2021 19:54 Co-signature as Attending Physician, Joseph Soto MD I agree with the assessment and r n plan of care. Attestation: The patient's history, exam findings, diagnostics, and a summary of any interventions or procedures was reviewed in detail with Maximiliano ISIDRO. Signatures: Dispatcher [employer] EDJoseph Zayas MD MD rn Roszak, Josh, PA PA jr8 Oneida Santana, RN RN kg
[2021-04-09 19:24] VITALS: BP 135/104; TEMP 97.6; O2SAT 100
== END 2021-04-09 19:05 | disposition home or self-care (01) ==
LOC: ER 15:55
DX: L08.9 Local infection of the skin and subcutaneous tissue, unspecified (principal); I12.0 Hypertensive chronic kidney disease with stage 5 chronic kidney disease or end stage renal disease; N18.6 End stage renal disease; Z85.3 Personal history of malignant neoplasm of breast; Z88.5 Allergy status to narcotic agent; Z95.818 Presence of other cardiac implants and grafts
CPT/HCPCS: 93971; 99282

== ENCOUNTER 2021-06-02 20:30 | Emergency (ER) | payer OTHER ==
[2021-06-02 21:43] LABS: Absolute Lymphocytes (CBC) 1.8 K/uL (0.7-4.9); Basophils % 0.3 % (0-1.3); Hematocrit 32.9 % (36.0-45.0); Lymphocytes % 14.8 % (15.3-44.8); MPV 9.1 fL (7.6-11.3); RBC Red Blood Cell Count 2.97 M/uL (3.86-4.86)
[2021-06-02 21:51] LABS: Protime INR 1.34
--- NOTE | 2021-06-02 21:58 | RAD REPORT ---
EXAM DESCRIPTION: CT - CTHCSPWOC - 06/02/2021 9:46 pm CLINICAL HISTORY: Trauma, head and neck injury. PAIN COMPARISON: <Comparisons> TECHNIQUE: Axial 5 mm thick images of the head were obtained. Axial 2 mm thick images of the cervical spine were obtained with sagittal and coronal reconstruction images generated and reviewed. All CT scans are performed using dose optimization technique as appropriate and may include automated exposure control or mA/KV adjustment according to patient size. FINDINGS: CT HEAD WITHOUT CONTRAST: No acute hemorrhage, hydrocephalus or extra-axial collection is identified.No areas of brain edema or midline shift. Mild chronic small vessel ischemic changes. The paranasal sinuses and mastoids are clear.The calvarium is intact. CT CERVICAL SPINE WITHOUT CONTRAST: No fracture or subluxation.No prevertebral soft tissues swelling is identified. Multilevel cervical s pondylosis. With varying degrees of neural foraminal narrowing noted. Small left paracentral disc pro trusion at the C5-6 level without significant central spinal stenosis. Carotid artery calcifications. IMPRESSION: No acute intracranial or cervical spine findings.
[2021-06-02 22:00] LABS: Bicarbonate 19 mmol/L (21-32); Potassium 4.2 mmol/L (3.5-5.1); Sodium Level 137 mmol/L (136-145)
[2021-06-02 22:01] LABS: BUN Blood Urea Nitrogen 55 mg/dL (7-18); Glucose Level 100 mg/dL (74-106); Magnesium 1.5 mg/dL (1.8-2.4); Troponin (Emerg Dept Use Only) < 0.02 ng/mL (0.0-0.045)
[2021-06-02] MEDS ORDERED: DIPHENHYDRAMINE 50 MG/ML VIAL ONE (22:23)
[2021-06-02] MEDS ORDERED: FENTANYL CITR 100 MCG/2 ML ONE (22:24)
[2021-06-02 22:55] LABS: Blood Morphology Comment NOTED (NOT SEEN); Macrocytosis 1+; Platelet Estimate ADEQ; Polychromasia 1+; White Blood Cell Scan OK (OK)
[2021-06-03] MEDS ORDERED: ACETAMINOPHEN 325 MG TABLET ONE (00:11)
[2021-06-03] MEDS ORDERED: HYDROCODONE/APAP 5/325 MG TAB ONE (00:12)
[2021-06-03] MEDS ORDERED: DIPHENHYDRAMINE 50 MG/ML VIAL ONE (00:13)
--- NOTE | 2021-06-03 00:25 | ER ---
Nurse's Notes [facility] Name: Toña Jimenez Age: 75 yrs Sex: Female : 1945 Arrival Date: 06/02/2021 Time: 20:34 Bed 25 Private MD: Diagnosis: Cervicalgia Presentation: 06/02 20:37 Chief complaint: Patient states: Sudden onset of neck pain that began at 1300 lp1 yesterday; Pain with rotating neck; Denies any trauma; No relief with Tylenol #3. Coronavirus screen: At this time, the client does not indicate any symptoms associated with coronavirus-19. Ebola Screen: No symptoms or risks identified at this time. Risk Assessment: Do you want to hurt yourself or someone else? Patient reports no desire to harm self or others. Onset of symptoms was June 01, 2021. 20:37 Method Of Arrival: Wheelchair lp1 20:37 Acuity: JEAN 3 lp1 20:42 Initial Sepsis Screen: Does the patient meet any 2 criteria? No. Patient's initial lp1 sepsis screen is negative. Does the patient have a suspected source of infection? No. Patient's initial sepsis screen is negative. Triage Assessment: 21:38 General: Appears in no apparent distress. Behavior is calm, cooperative, appropriate bc5 for age. Historical: - Allergies: 20:38 All narcotics - "Give's me a rash"; lp1 - Home Meds: 20:38 isosorbide mononitrate 30 mg Oral Tb24 1 tab once daily [Active]; losartan 100 mg Oral lp1 tab 1 tab once daily [Active]; 20:40 fenofibrate micronized 160 mg oral tab daily [Active]; nifedipine 60 mg Oral TbER 1 tab lp1 once daily [Active]; sevelamer HCl 800 mg oral tab 1 tab 3 times per day [Active]; - PMHx: 20:38 BREAST CA; Carotid Endarterectomy; End stage renal disease; Hypercholesterolemia; lp1 Hypertensive disorder; 20:40 Dialysis- M/W/F; lp1 - PSHx: 20:38 Appendectomy; Mastoidectomy; Multiple GI sx; renal stents; Stent in abdominal aorta, lp1 iliacs; Total abdominal hysterectomy; - Immunization history:: Adult Immunizations up to date, Client reports receiving the 2nd dose of the Covid vaccine. - Social history:: Smoking status: Patient denies any tobacco usage or history of. Screenin:40 Abuse screen: Denies threats or abuse. Denies injuries from another. Nutritional lp1 screening: No deficits noted. Tuberculosis screening: No symptoms or risk factors identified. 21:38 Fall Risk No fall in past 12 months (0 pts). No secondary diagnosis (0 pts). IV access bc5 (20 points). Ambulatory Aid- Crutches/Cane/Walker (15 pts). Gait- Normal/Bed Rest/Wheelchair (0 pts) Mental Status- Oriented to own ability (0 pts). Total Mendez Fall Scale indicates Low Risk Score (25-44 pts). Fall prevention measures have been instituted. Side Rails Up X 2 Frequent Obs/Assesments occuring Family Present and informed to notify staff if they need to leave bedside As available Patient and Family Educated on Fall Prevention Program and strategies. Assessment: 21:33 Reassessment: Pt c/o neck pain at base of skull, sudden onset, denies trauma/injury. bc5 A\\T\\O x 3. RR is even and unlabored, speaking in clear and complete sentences at this time. Pain: Complains of pain in scalp Pain radiates to back. Neuro: Level of Consciousness is awake, alert, obeys commands, Oriented to person, place, time, situation, Appropriate for age Microcomputer Support Specialist are equal bilaterally Moves all extremities. Gait is steady, Speech is normal, Facial symmetry appears normal, Pupils are PERRLA, Intact. Vital Signs: 20:42 BP 114 / 58; Pulse 94; Resp 18; Temp 97.6(TE); Pulse Ox 97% on R/A; Weight 57.15 kg lp1 (R); Height 5 ft. 2 in. (157.48 cm); Pain 10/10; 21:40 BP 132 / 67; Pulse 91; Resp 15; Temp 98.5; Pulse Ox 98% on R/A; Pain 5/10; bc5 23:16 BP 121 / 52; Pulse 75; Resp 16; Temp 98.5(O); Pulse Ox 96% on R/A; Pain 2/10; bc5 10/04 00:50 BP 132 / 62; Pulse 87; Resp 15; Temp 98.6(O); Pulse Ox 97% on R/A; Pain 3/10; bc5 06/02 20:42 Body Mass Index 23.04 (57.15 kg, 157.48 cm) lp1 ED Course: 06/02 20:34 Patient arrived in ED. bp1 20:38 Triage completed. lp1 20:38 Arm band placed on. lp1 20:46 Terra Sandoval, WILLIAM is Primary Nurse. bc5 21:05 Rahul Stockton PA is PHCP. cp 21:05 Cam Leonard MD is Attending Physician. cp 21:38 No provider procedures requiring assistance completed. Inserted saline lock: 20 gauge bc5 in left antecubital area, using aseptic technique. 21:39 Patient has correct armband on for positive identification. bc5 21:46 CT Head C Spine In Process Unspecified. EDMS 23:23 CT Head Angio In Process Unspecified. EDMS 23:23 CT Neck Angio In Process Unspecified. EDMS 06/03 00:51 IV discontinued, intact, bleeding controlled, No redness/swelling at site. Pressure bc5 dressing applied. Administered Medications: 06/02 22:26 Drug: fentaNYL (PF) 25 mcg Route: IVP; Site: left antecubital; bc5 23:16 Follow up: Response: Pain is decreased bc5 22:26 Drug: Benadryl (diphenhydrAMINE) 12.5 mg Route: IVP; Site: left antecubital; bc5 23:16 Follow up: Response: No adverse reaction bc5 23:35 CANCELLED (Physician Discretion): traMADol 50 mg PO once; RASS on ADMIN: Combtv4, Very cp Agttd3, Agttd2, Rstlss1, AlertClm0, Drwsy-1, Lt Sdtn-2, Mod Sdtn-3, Dp Sdtn-4, UnArsble-5 06/03 00:03 Drug: Tylenol 650 mg Route: PO; bc5 00:51 Follow up: Response: Pain is decreased bc5 00:03 Drug: HYDROcodone-acetaminophen 5 mg-325 mg 1 tabs Route: PO; bc5 00:51 Follow up: Response: Pain is decreased bc5 00:03 Drug: Benadryl (diphenhydrAMINE) 12.5 mg Route: IVP; Site: left antecubital; bc5 00:51 Follow up: Response: No adverse reaction bc5 Outcome: 00:24 Discharge ordered by . day 00:50 Condition: improved bc5 00:50 Discharge instructions given to patient, family, Instructed on discharge instructions, follow up and referral plans. medication usage, Prescriptions given X 1. 00:51 Discharged to home via wheelchair, with family. bc5 00:52 Patient left the ED. bc5 Signatures: Dispatcher [employer] EDMS Sara Haywood RN RN lp1 Rahul Stockton PA PA cp [place]ia[place], Brittany bp1 Corado, Bella, RN RN bc5 Corrections: (The following items were deleted from the chart) 06/02 20:39 20:37 Chief complaint: Patient states: Sudden onset of neck pain that began at 1300 lp1 yesterday; Pain with rotating neck; Denies any trauma lp1 20:41 20:38 Home Meds: amlodipine 10 mg tab 1 tab once daily; lp1 lp1 20:41 20:38 Home Meds: oxybutynin chloride 5 mg Oral tab 1 tab 2 times per day; lp1 lp1 20:44 20:42 Temp 97.6F Temporal; 57.15 kg Reported; Height 5 ft. 2 in.; BMI: 23.0; Pain lp1 06/09; lp1
--- NOTE | 2021-06-03 00:26 | EDPHYS ---
Physician Documentation [facility] Name: Toña Jimenez Age: 75 yrs Sex: Female : 1945 Arrival Date: 06/02/2021 Time: 20:34 Bed 25 Private MD: ED Physician Cam Leonard HPI: 06/02 21:20 This 75 yrs old Female presents to ER via Wheelchair with complaints of Neck cp Pain, >24Hrs Old. 21:20 The patient or guardian complains of pain, that is acute. cp 21:20 The symptoms are located at the C1 and C2. cp 21:20 Onset: The symptoms/episode began/occurred today, while riding as passenger in car with cp . Context: The neck injury/problem resulted from from unknown cause, patient denies any trauma, denies fall, denies any sudden acceleration and/or deceleration while in vehicle. Associated signs and symptoms: Pertinent positives: headache, Pertinent negatives: fever, numbness, tingling, vomiting, weakness. The pain does not radiate. 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 Historical: - Allergies: 20:38 All narcotics - "Give's me a rash"; lp1 - Home Meds: 20:38 isosorbide mononitrate 30 mg Oral Tb24 1 tab once daily [Active]; losartan 100 mg Oral lp1 tab 1 tab once daily [Active]; 20:40 fenofibrate micronized 160 mg oral tab daily [Active]; nifedipine 60 mg Oral TbER 1 tab lp1 once daily [Active]; sevelamer HCl 800 mg oral tab 1 tab 3 times per day [Active]; - PMHx: 20:38 BREAST CA; Carotid Endarterectomy; End stage renal disease; Hypercholesterolemia; lp1 Hypertensive disorder; 20:40 Dialysis- M/W/F; lp1 - PSHx: 20:38 Appendectomy; Mastoidectomy; Multiple GI sx; renal stents; Stent in abdominal aorta, lp1 iliacs; Total abdominal hysterectomy; - Immunization history:: Adult Immunizations up to date, Client reports receiving the 2nd dose of the Covid vaccine. - Social history:: Smoking status: Patient denies any tobacco usage or history of. ROS: 21:25 Constitutional: Negative for body aches, chills, fever, poor PO intake. cp 21:25 Eyes: Negative for injury, pain, redness, and discharge. cp 21:25 ENT: Negative for drainage from ear(s), ear pain, sore throat, difficulty swallowing, difficulty handling secretions. 21:25 Neck: Positive for pain with movement, pain at rest, tenderness, of the occiput, Negative for injury or acute deformity. 21:25 Cardiovascular: Negative for chest pain, edema, palpitations. 21:25 Respiratory: Negative for cough, shortness of breath, wheezing. 21:25 Abdomen/GI: Negative for abdominal pain, nausea, vomiting, and diarrhea. 21:25 Back: Negative for pain at rest, pain with movement. 21:25 Skin: Negative for rash. 21:25 Neuro: Positive for headache, of the back of head, Negative for altered mental status, dizziness, numbness, syncope, tingling, weakness. 21:25 All other systems are negative. Exam: 21:30 Constitutional: The patient appears in no acute distress, alert, awake, cp non-diaphoretic, non-toxic, well developed, well nourished. 21:30 Head/Face: Normocephalic, atraumatic. cp 21:30 Eyes: Periorbital structures: appear normal, Conjunctiva: normal, no exudate, no injection, Sclera: no appreciated abnormality, Lids and lashes: appear normal, bilaterally. 21:30 ENT: External ear(s): are unremarkable, Nose: is normal, Mouth: Lips: moist, Oral mucosa: moist, Posterior pharynx: Airway: no evidence of obstruction, patent. 21:30 Neck: External neck: tenderness, that is severe, of the occiput, ROM/movement: pain, that is severe, with any movement, Meningeal signs: are not present, Lymph nodes: no appreciated lymphadenopathy. 21:30 Chest/axilla: Inspection: normal, Palpation: is normal, no crepitus, no tenderness. 21:30 Cardiovascular: Rate: normal, Rhythm: regular. 21:30 Respiratory: the patient does not display signs of respiratory distress, Respirations: normal, no use of accessory muscles, no retractions, labored breathing, is not present, Breath sounds: are clear throughout, no decreased breath sounds, no stridor, no wheezing. 21:30 Abdomen/GI: Exam negative for discomfort, distension, guarding, Inspection: abdomen appears normal. 21:30 Back: pain, is absent, ROM is normal. 21:30 Skin: no rash present. 21:30 Neuro: Orientation: to person, place \\T\\ time. Mentation: is normal, Cerebellar function: is grossly normal, Motor: moves all fours, strength is normal, Sensation: is normal. 22:20 ECG was reviewed by the Attending Physician. Vital Signs: 20:42 BP 114 / 58; Pulse 94; Resp 18; Temp 97.6(TE); Pulse Ox 97% on R/A; Weight 57.15 kg lp1 (R); Height 5 ft. 2 in. (157.48 cm); Pain 10/10; 21:40 BP 132 / 67; Pulse 91; Resp 15; Temp 98.5; Pulse Ox 98% on R/A; Pain 5/10; bc5 23:16 BP 121 / 52; Pulse 75; Resp 16; Temp 98.5(O); Pulse Ox 96% on R/A; Pain 2/10; bc5 06/03 00:50 BP 132 / 62; Pulse 87; Resp 15; Temp 98.6(O); Pulse Ox 97% on R/A; Pain 3/10; bc5 06/02 20:42 Body Mass Index 23.04 (57.15 kg, 157.48 cm) lp1 MDM: 06/02 21:12 Patient medically screened. 22:00 Differential diagnosis: C-Spine Fracture Cervical Disc Herniation Spondylosis cp torticollis, Unstable Vertebral Fracture viral meningitis, Whiplash Injury. 22:35 Physician consultation: Stevie Whitt MD was called at 22:30, was contacted at 22:30, regarding consult, patient's condition, recommends CT head and CT angio of neck. Patient to f/u tomorrow as scheduled for dialysis. 06/03 00:22 Data reviewed: vital signs, nurses notes, lab test result(s), EKG, radiologic studies, cp CT scan, plain films, I have discussed the patient's presentation/case with the attending Emergency Department Physician; and as a result, I will discharge patient. 00:22 Test interpretation: by ED physician or midlevel provider: ECG, plain radiologic cp studies. Counseling: I had a detailed discussion with the patient and/or guardian regarding: the historical points, exam findings, and any diagnostic results supporting the discharge/admit diagnosis, lab results, radiology results, the need for outpatient follow up, nephrology as scheduled for dialysis and primary care physician, to return to the emergency department if symptoms worsen or persist or if there are any questions or concerns that arise at home. Response to treatment: the patient's symptoms have markedly improved after treatment, Pain improved with meds. Patient placed in cervical collar for comfort and support. 06/02 21:12 Order name: Basic Metabolic Panel cp 06/02 21:12 Order name: CBC with Diff cp 06/02 21:12 Order name: Magnesium cp 06/02 21:12 Order name: PT-INR; Complete Time: 22:01 cp 06/02 22:01 Interpretation: Abnormal: PT 15.4. cp 06/02 21:12 Order name: Troponin (emerg Dept Use Only); Complete Time: 22:01 cp 06/02 21:12 Order name: Basic Metabolic Panel; Complete Time: 22:01 EDMS 06/02 22:01 Interpretation: Normal except: CO2 19; BUN 55; CRE 4.97; GFR 8. cp 06/02 21:12 Order name: CT Head C Spine; Complete Time: 22:01 cp 06/02 21:12 Order name: CBC with Automated Diff; Complete Time: 23:33 EDMS 06/02 22:03 Interpretation: Normal except: WBC 12.40; RBC 2.97; HGB 10.6; HCT 32.9; MCV 110.7; MCH cp 35.7; PLT 135; RDW 18.8; BERNARDINO% 80.9; LYM% 14.8; NEUT A 10.0. 06/02 21:12 Order name: Magnesium; Complete Time: 22:01 EDMS 06/02 22:01 Interpretation: Abnormal: MG 1.5. cp 06/02 21:58 Order name: CBC Smear Scan; Complete Time: 23:33 EDMS 06/02 22:31 Order name: CT Head Angio cp 06/02 22:31 Order name: CT Neck Angio cp 06/02 21:12 Order name: EKG; Complete Time: 21:13 cp 06/02 21:12 Order name: Cardiac monitoring; Complete Time: 21:41 cp 06/02 21:12 Order name: EKG - Nurse/Tech cp 06/02 21:12 Order name: IV Saline Lock; Complete Time: 21:32 cp 06/02 21:12 Order name: Labs collected and sent; Complete Time: :32 cp 06/02 21:12 Order name: O2 Per Protocol; Complete Time: 21:32 cp 06/02 21:12 Order name: O2 Sat Monitoring; Complete Time: :32 cp 06/02 21:12 Order name: C-Collar; Complete Time: :32 cp EC/03 22:20 Rate is 91 beats/min. Rhythm is regular. IN interval is normal. QRS interval is normal. cp QT interval is normal. T waves are Inverted in lead aVR. Interpreted by me. Reviewed by me. Administered Medications: 22:26 Drug: fentaNYL (PF) 25 mcg Route: IVP; Site: left antecubital; bc5 23:16 Follow up: Response: Pain is decreased bc5 22:26 Drug: Benadryl (diphenhydrAMINE) 12.5 mg Route: IVP; Site: left antecubital; bc5 23:16 Follow up: Response: No adverse reaction bc5 23:35 CANCELLED (Physician Discretion): traMADol 50 mg PO once; RASS on ADMIN: Combtv4, Very cp Agttd3, Agttd2, Rstlss1, AlertClm0, Drwsy-1, Lt Sdtn-2, Mod Sdtn-3, Dp Sdtn-4, UnArsble-5 06/03 00:03 Drug: Tylenol 650 mg Route: PO; bc5 00:51 Follow up: Response: Pain is decreased bc5 00:03 Drug: HYDROcodone-acetaminophen 5 mg-325 mg 1 tabs Route: PO; bc5 00:51 Follow up: Response: Pain is decreased bc5 00:03 Drug: Benadryl (diphenhydrAMINE) 12.5 mg Route: IVP; Site: left antecubital; bc5 00:51 Follow up: Response: No adverse reaction bc5 Disposition: 05:31 Co-signature as Attending Physician, Cam Leonard MD. [email or web address] Disposition Summary: 06/03/21 00:24 Discharge Ordered Location: Home cp Problem: new cp Symptoms: have improved cp Condition: Stable cp Diagnosis - Cervicalgia cp Followup: cp - With: Private Physician - When: 2 - 3 days - Reason: Recheck today's complaints Discharge Instructions: - Discharge Summary Sheet cp - Neck Exercises cp Forms: - Medication Reconciliation Form cp - Thank You Letter cp - Antibiotic Education cp - Prescription Opioid Use cp Prescriptions: - Tylenol-Codeine #3 300 mg-30 mg Oral - take 2 tablet by ORAL route every 8-12 hours As needed; 15 tablet; Refills: 0, cp Product Selection Permitted Signatures: Dispatcher [employer] EDSara Ortiz, RN RN lp1 Rahul Stockton PA PA cp Cam Leonard MD MD [email or web address] Terra Sandoval RN RN bc5 Corrections: (The following items were deleted from the chart) 06/02 20:41 20:38 Home Meds: amlodipine 10 mg tab 1 tab once daily; 1 lp1 20:41 20:38 Home Meds: oxybutynin chloride 5 mg Oral tab 1 tab 2 times per day; 1 lp1 23:35 23:35 traMADol 50 mg PO once; RASS on ADMIN: Combtv4, Very Agttd3, Agttd2, Rstlss1, cp AlertClm0, Drwsy-1, Lt Sdtn-2, Mod Sdtn-3, Dp Sdtn-4, UnArsble-5 ordered. cp
[2021-06-03 01:18] VITALS: BP 132/62; TEMP 98.6; O2SAT 97
--- NOTE | 2021-06-03 10:12 | RAD REPORT ---
EXAM DESCRIPTION: [facility] Angio06/03/2021 12:38 am CLINICAL HISTORY: 75 years, Female, PAIN COMPARISON: None.. TECHNIQUE: Multiple transaxial tomograms from the aortic arch through the brain were performed after administration of large bolus of IV contrast for complete opacification of the carotid arteries and intracranial vessels. Subsequent 2-D and 3-D multiplanar reformats, volume rendering technique and maximum intensity projec tion images were generated and reviewed. Stenosis measurements were performed according to NASCET cri terlizette. This exam was performed according to our departmental dose-optimization protocol, which includes auto mated exposure control, adjustment of the mA and/or kV according to patient size and/or use of iterat neville reconstruction technique. FINDINGS: Ascending aorta: There is a normal branching pattern of the great vessels off the arch. There is atherosclerotic plaque formation at the aortic arch and origin of the left common carotid artery. Minimal atheromatous plaque dimension is noted within the right brachycephalic artery. No willy dence for significant stenosis. There are codominant vertebral arteries which demonstrate normal opac ification. Right carotid artery: Normal opacification is demonstrated within the right common carotid artery a nd at the carotid bifurcation. The right carotid bulb demonstrate to be within normal limits. There i s no evidence for plaque formation. The proximal, mid distal portion of the right internal carotid ar kim demonstrate to be patent no evidence for stenosis and/or occlusion. There is normal opacification within the proximal aspect anterior circulation without evidence of int racranial aneurysm within the incompletely visualized portions of the brain. There is no significan t stenosis or occlusion. Left carotid artery: Normal opacification is demonstrated within the left common carotid artery at the distal portion of the left internal carotid artery there is a circumferential plaque with a decre ased caliber of approximately 40%, this is best demonstrated on axial image [id number]. The left carotid bulb demonstrate minimal peripheral plaque with no evidence for significant stenosis. The proximal m id and distal portions of the left internal carotid artery demonstrate to be unremarkable . Intracranial circulation: Intracranial portions of the internal carotid arteries the cavernous sinus portions demonstrates the presence of a minimal peripheral plaque with no evidence for significant st enosis. There is normal opacification within the anterior circulation without evidence of intracrania l aneurysm. The anterior cerebral arteries, middle cerebral arteries and its branches demonstrate n ormal opacification with no evidence for significant stenosis aneurysm and/or occlusion. There is pat ency of the anterior, indicating system. There is normal venous drainage there is no evidence for sin us vein thrombosis. Vertebrobasilar system: The posterior circulation demonstrate codominant bilateral vertebral arteries with no evidence for significant stenosis and/or evidence for significant dissection. The vertebroba silar system demonstrate no evidence for significant aneurysm/or occlusion. There is slight decreased caliber of the origin right P1 segment perhaps suggesting a 40% stenosis. This is best demonstrated on axial image [id number] and maximum intensity projection reconstructed images coronal series CT 411 im age 105-110. Grossly the brain parenchyma demonstrate mild brain atrophy with the findings suggesting periventricu lar white matter changes of microvascular ischemia. There is no evidence for significant abnormal par enchymal enhancement. The skull base and intracranial structures demonstrate to be within normal limits. Lung apex: Demonstrate a pleural-based nodule within the right lung apex measuring 4 mm most likely r epresentative of a pleural tag. There is a subpleural lateral right upper lobe pulmonary nodule measu ring 2 mm on image 13. Incidentally is noted the presence of a right IJ tunnel dialysis catheter in p lace upper lobe. IMPRESSION: Circumferential plaque formation at the distal portion of the left common carotid artery with a decreased caliber of approximately 40%. Slight decreased caliber of the origin of the right P1 segment, perhaps suggesting a 40% stenosis. No evidence for significant stenosis and/or occlusion of the right cervical carotid and/or vertebral arteries. No evidence for significant stenosis and/or occlusion of the intracranial arteries. Pulmonary nodules within the upper lobes. Most severe: 4 mm right solid pulmonary nodule within the r ight upper lobe. If patient is low risk for malignancy, no routine follow-up imaging is recommended; if patient is high risk for malignancy, a non-contrast Chest CT at 12 months is optional. If performe d and the nodule is stable at 12 months, no further follow-up is recommended. These guidelines do not apply to immunocompromised patients and patients with cancer. Follow up in pa tients with significant comorbidities as clinically warranted. For lung cancer screening, adhere to [place]-RADS guidelines. Reference: Radiology. 2017; 284(1):228-43. Electronically signed by: Jorge Alba MD 06/02/2021 11:53 PM CDT Due to temporary technical issues with the PACS/Fluency reporting system, reports are being signed by the in house radiologist without review as a courtesy to ensure prompt reporting. The interpreting r adiologist is fully responsible for the content of the report.
--- NOTE | 2021-06-04 18:13 | EKG ---
Test Date: 2021-06-02 Test Time: 22:13:50 Electronics Repair Technician: MEASUREMENT RESULTS: Intervals: Rate: 91 MS: 172 QRSD: 90 QT: 374 QTc: 460 [place]: P: 43 MS: 172 QRS: -26 T: 46 INTERPRETIVE STATEMENTS: Normal sinus rhythm Septal infarct, age undetermined Abnormal ECG No previous ECG available for comparison Electronically Signed On 06-04-21 18:06:22 CDT by Vicente Clemens
== END 2021-06-03 00:52 | disposition home or self-care (01) ==
LOC: ER 20:30
DX: M54.2 Cervicalgia (principal); I12.0 Hypertensive chronic kidney disease with stage 5 chronic kidney disease or end stage renal disease; N18.6 End stage renal disease; Z99.2 Dependence on renal dialysis; Z88.5 Allergy status to narcotic agent
CPT/HCPCS: 93005; 85025; 80048; 36415; 83735; 85610; 84484; 70450; 72125; 70496; 70498; 96375; 96374; 99284; Q9967; J1200; J3010

== ENCOUNTER 2022-01-19 12:07 | Inpatient (IN) | payer OTHER ==
--- OUTSIDE RECORDS SUMMARY | 2022-01-19 12:13 | XMS REPORT | Continuity of Care Document ---
:1945 Author Organization [facility] t Address [facility] [place] [address] Care Team Providers Name Role Phone [phone] Primary Care Physician Unavailable Cassandra Attending Clinician Unavailable NAA CORNELIUS Attending Clinician Unavailable CORIE Attending Clinician Unavailable TERA Attending Clinician Unavailable Sunitha THOMAS, A Attending Clinician Unavailable Laura Queen Attending Clinician Ciaran BAPTISTE, Wendy Attending Clinician Wendy Singh MD Attending Clinician Wendy SINGH Attending Clinician Unavailable LENA Attending Clinician Unavailable MD KELSEY BOLIVAR Attending Clinician Unavailable Attending Clinician Unavailable THAI Attending Clinician Unavailable MD FAHAD HALEY Attending Clinician Unavailable REJI Attending Clinician Unavailable Kameron THOMAS Attending Clinician Unavailable Wendy VICENTE Attending Clinician Unavailable Nestor BAPTISTE, TAnupama Attending Clinician Livia Soto MD Attending Clinician Luc Sanchez MD Attending Clinician Landen BAPTISTE Attending Clinician NAA CORNELIUS Admitting Clinician Unavailable Wendy Singh MD Admitting Clinician Wendy SINGH Admitting Clinician Unavailable MICAELA Admitting Clinician Unavailable MD KELSEY BOLIVAR Admitting Clinician Unavailable Admitting Clinician Unavailable MD [facility] Admitting Clinician Unavailable Payers Payer Name Policy Type Policy Number Effective Date Expiration Date Laura sparks MEDICARE PART A [id number] 2008 AND B 00:00:00 ASAF LIFE [id number] 2013 00:00:00 MEDICARE A B [id number] 2008 00:00:00 YUN LIFE [id number] 2014 2015 00:00:00 00:00:00 Problems Condition Condition Condition Status Onset Resolution Last Treating Co mments Source Name Details Category Date Date Treatment Clinician Date Shortness Shortness Disease Active Uni vers of breath of breath 4-09 ity of 00:00: [place] 00 Medical Branch ESRD ESRD Disease Active Methodi needing needing 8-12 st dialysis dialysis 00:00: Hospit a 00 l Stenosis Stenosis Disease Active [facility] right 05[facility]28 [facility] carotid carotid 00:00: Medical artery artery 00 Center Carotid Carotid Disease Active 2019- [facility] artery artery 05-28 [facility] disease disease 00:[facility]: Medical 00 Center Bilateral Bilateral Disease Active [facility] carotid carotid 05-14 [facility] artery artery 00:00: Medical occlusion occlusion 00 Cent er Essential Essential Disease Active 2019- [facility] hypertensi hypertensi -14 Genie kes on on 00:00: Medical 00 Center 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 [facility] sun'aq sun'aq 00:00: Medical coronary coronary 00 Center artery of artery of sun'aq sun'aq 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 Other Other Disease Active [facility] hyperlipid hyperlipid 05-14 Genie kes emia emia 00:00: Medical 00 Center Peripheral Peripheral Disease Active [facility] arterial arterial 02-05 [facility] disease disease 00:00: Medical 00 Center Allergies, Adverse Reactions, Alerts Allergy Allergy Status Severity Reaction(s) Onset Inactive Treating Comm ents Source Name Type Date Date Clinician Morphine Propensi Active Itching Ok to Unive rs ty to 8-12 take with ity of adverse 00:00: benadrylO [place] reaction 00 k to take Medic al s with Branch benadrylO k to take with benadryl MORPHINE DRUG Active ITCHING Univers INGREDI 8-12 ity of 00:00: [place] [facility] Morphine Propensi Active Itching Ok to Metho di ty to 8-[address] adverse 00:00: benadryl Hospita reaction 00 l s to drug Other Propensi Active Itching Opioids- Metho di ty to [address] adverse 00:00: take with Hospit a reaction 00 benadryl l s Chloride Propensi Active Diarrhea Diarrhea, U nivers ty to 216 bowel ity of adverse 00:00: inflammat [place] reaction 00 ionDiarrh Medic al s ea, bowel Branch inflammat ion CHLORIDE DRUG Active Diarrhea Univer s INGREDI 216 ity of 00:00: [place] [facility] BOZENA Allergy Active Low Other [facility] INHIBITO 02-01 [facility] RS 00:00: Medical 00 [facility]. Allergy Active Low Itching [facility] DEVICES 02-01 [facility] 00:00: Medical 00 Center OTHER Allergy Active Low Other [facility] -04 [facility] 00:00: Medical 00 [facility]. Drug Active Itching, Itching [facility] Devices Allergy Other (See 02-01 with all Genie kes Comments) 00:00: narcotic Medic al 00 Center Other Propensi Active Other (See Beta [facility] ty to Comments) 02-01 blockers [facility] adverse 00:00: cause Medical reaction 00 extreme Center s fatigue Bozena Drug Active Cough coughingc Univers Inhibito Intolera 02-01 oughing ity o f rs nce 00:00: [place] [facility] BOZENA Drug Active Low Other-Cmnt Univer s INHIBITO Class 6- ity of RS 00:00: [address] ingested Adverse Active IBS-D Common chlorine Reaction [facility] all Adverse Active itching Common narcotic Reaction [facility] Hydrocor Adverse Active itching Common tisone Reaction [facility] Family History Family Member Diagnosis Comments Start Date Stop Date Source Natural father Heart disease [facility] Natural mother Cancer [facility] Natural mother Heart disease [facility] Natural mother Hypertension [facility] Natural mother Obesity [facility] Social History Social Habit Start Date Stop Date Quantity Comments Source History of Smoker [facility] tobacco use Medical Cente r Exposure to Not sure University of SARS-CoV-2 [facility] (event) Branch History SDOH [facility] Alcohol Std Drinks History SDOH [facility] Alcohol Binge Tobacco use and 2021-12-07 2021-12-07 Never used Universit y of exposure 00:00:00 00:00:00 [facility] Alcohol intake 2021-04-12 2021-04-12 1 /d [facility] 00:00:00 00:00:00 History SDOH 2021-04-11 2021-04-11 1 [facility] Alcohol Frequency 00:00:00 00:00:00 Alcohol Comment 2021-04-11 2021-04-11 4oz red wine [facility] 00:00:00 00:00:00 every day Sex [birth year] Universit y of 00:00:00 00:00:00 [facility] Smoking Status Start Date Stop Date Source Former smoker 2021-12-07 00:00:00 2021-12-07 00:00:00 Universi [facility] Never smoked tobacco [facility] Medications Ordered Filled Start Stop Current Ordering Indication Dosage Frequency Signature Comments Components Source Medication Medication Date Date Medication? Clinician (SIG) Name Name NIFEdipine Yes 60mg Take 60 mg U nivers ER 60 mg 4-10 by mouth 2 ity o f tablet 18:10: (two) [place] [id number] times Medical daily. Branch Fenofibrate Yes 160mg Take 160 U nivers 160 mg 4-10 mg by ity of tablet 18:10: mouth [place] [address] daily. Medical Branch oxybutynin Yes 5mg Take 5 mg Un angela chloride 5 4-10 by mouth 2 ity of mg tablet 18:10: (two) [place] [address] times Medical daily. Branch sevelamer Yes 800mg Take 800 Uni vers 800 mg 4-10 mg by ity of tablet 18:10: mouth 3 [place] 38 (three) Medical times Branch daily with meals. NIFEdipine 2022-0 Yes 60mg Take 60 mg U nivers ER 60 mg 4-10 by mouth 2 ity o f tablet 18:10: (two) [place] 38 times Medical daily. Branch Fenofibrate Yes 160mg Take 160 U nivers 160 mg 4-10 mg by ity of tablet 18:10: mouth [place] 38 daily. Medical Branch oxybutynin Yes 5mg Take 5 mg Un angela chloride 5 4-10 by mouth 2 ity of mg tablet 18:10: (two) [place] 38 times Medical daily. Branch sevelamer Yes 800mg Take 800 Uni vers 800 mg 4-10 mg by ity of tablet 18:10: mouth 3 [place] 38 (three) Medical times [place] daily with meals. epoetin 0 2021- No 6000U 6,000 Univers segundo-epbx 4-10 04-10 Units, ity of (RETACRIT) 14:30: 16:07 Slow IV Zackary as injection 00 :00 Push, Medical 6,000 Units DIALYSIS Bran ch ONCE - ANGELES DSU, 1 dose, On [place] 12/08/21 at 0930, Routine
burn crew member approving Restricted medication : MICHAEL RAYO K N NaCl 0.9% 2021- No 5mL 5 mL, Slow U nivers (NS) 4-10 04-10 IV Push, ity of injection 5 14:30: 19:18 ONCE, 1 [place] mL 00 :00 dose, On Medical [place] Branch 12/08/21 at 0930, Routine heparin 0 Yes 2000U PRN - SEE Univ ers 1,000 4-10 INSTRUCTIO ity of unit/mL (10 14:18: NS, [place] mL) - 17 Starting Medical dialysis on [facility] catheter 12/08/21 at care 0918, Until Discontinu ed, Routine
For Priming of Ports:&nbs p; &n bsp; After initial saline flush, prime each port with heparin according to the priming volume listed on each catheter port for catheter lock.
fenofibrate Yes 134mg 134 mg, Un angela micronized 4-10 Oral, ity of (LOFIBRA) 14:00: DAILY, [place] capsule 134 00 First dose Me dical mg on [facility] 12/08/21 at 0900, Until Discontinu ed sevelamer 2021-0 Yes 800mg 800 mg, Univ ers (RENVELA) 4-10 Oral, TID ity o f tablet 800 13:00: MEALS, [place] mg 00 First dose Medical on [facility] 12/08/21 at 0800, Until Discontinu ed magnesium 2021-0 2021- No 4g 4 g, IV Univ ers sulfate in 12-08 Piggyback, it y of water 4 12:45: 14:31 ONCE, 1 [place] gram/50 mL 00 :00 dose, On Medic al (8 %) IV [facility] Piggyback 4 12/08/21 at g 0745, Routine isosorbide 2021-2021- No 30mg Take 30 mg Univers mononitrate 12-08 by mouth ity of 30 mg 24 hr 12:27: 00:00 daily. Zackary as tablet 04 :00 [facility] pramipexole 0 Yes .5mg 0.5 mg, Uni vers (MIRAPEX) 4-10 Oral, TID, ity of tablet 0.5 01:00: First dose [place] mg 00 on [facility] Medical 12/07/21 at Branch 2000, Until Discontinu ed, Routine ipratropium 2021-0 Yes 3mL 3 mL, Unive rs -albuteroL -10 Inhalation ity of (DUONEB) 01:00: , QID, [place] 0.5 mg-3 00 First dose Medic al mg(2.5 mg on [facility]3 mL 12/07/21 at nebulizer 1999, solution 3 Until mL Discontinu ed, Routine heparin 2021-0 Yes 5000U 5,000 Univers (porcine) 4-10 Units, ity of injection 01:00: [place]cutaneo [place] 5,000 Units 00 us, Q12H, Med ical First dose Branch on [facility] 12/07/21 at 2000, Until Discontinu ed, Routine oxybutynin 2021-0 Yes 5mg 5 mg, Univer s chloride 4-10 Oral, BID, ity o f (DITROPAN) 01:00: First dose [place] tablet 5 mg 00 on [facility] Medica l 12/07/21 at Branch 2000, Until Discontinu ed, Routine NIFEdipine 2022-0 Yes 60mg 60 mg, Unive rs ER tablet 4-10 Oral, BID, ity of 60 mg 01:00: First dose [place] 00 on [facility] Medical 12/07/21 at Branch 2000, Until Discontinu ed, Routine albuterol Yes [id number] 2{puff} Inhale 2 Univers 90 4-10 Puffs ity of mcg/actuati 00:00: every 6 Zackary as on inhaler 00 (six) Medical hours as Branch needed for Wheezing or Shortness of Breath. tiotropium Yes [id number] 2{puff} Inhale 2 Univers bromide 4-10 Puffs ity of (SPIRIVA 00:00: daily. [place] RESPIMAT) 00 Medical 1.25 Branch mcg/actuati on Mist albuterol Yes [id number] 2{puff} Inhale 2 Univers 90 4-10 Puffs ity of mcg/actuati 00:00: every 6 Zackary as on inhaler 00 (six) Medical hours as Branch needed for Wheezing or Shortness of Breath. tiotropium Yes [id number] 2{puff} Inhale 2 Univers bromide 4-10 Puffs ity of (SPIRIVA 00:00: daily. [place] RESPIMAT) 00 Medical 1.25 Branch mcg/actuati on Mist furosemide 2021- Yes [id number] 80mg Take 1 Univers 80 mg 4-10 06-10 tablet by ity of tablet 00:00: 04:59 mouth 2 [place] 00 :00 (two) Medical times Branch daily for 60 days. furosemide 2021- Yes [id number] 80mg Take 1 Univers 80 mg 4-10 06-10 tablet by ity of tablet 00:00: 04:59 mouth 2 [place] 00 :00 (two) Medical times [place] daily for 60 days. hydrALAZINE 2021- No 10mg 10 mg, Uni vers (APRESOLINE 4-10 -09 Oral, ity of ) tablet 10 00:00: 23:12 ONCE, 1 [place] mg 00 :00 dose, On Medical [facility] 12/07/21 Branch at 1900, Routine acetaminoph Yes 650mg 650 mg, Un angela en -09 Oral, ity of (TYLENOL) 22:28: Q6HPRN, [place] tablet 650 09 Starting Medic al mg on Sat Branch 12/07/21 at 1728, Until Discontinu ed, Routine, Pain (scale 1-3) losartan 2020-08 Yes 100mg QD Take 100 Meth suly (COZAAR) 50 2-[address] MG tablet 10:31: mouth Hospita 58 daily. l oxybutynin 2020-08 Yes 5mg Q.5D Take 5 mg Me thodi (DITROPAN) 2-[address] 5 MG tablet 10:31: (two) Hospi ta 58 times a l day. isosorbide 2020-08 Yes 30mg Q.25D Take 30 mg Methodi dinitrate 2-[address] (ISORDIL) 10:31: (four) Hospit a 30 MG 58 times a l tablet day. fenofibrate 2020-08 Yes 160mg QD Take 160 M ethodi (LOFIBRA) 2-[address] 160 MG 10:31: mouth Hospita tablet 58 daily. l NIFEdipine 2020-08 Yes 60mg QD Take 60 mg M ethodi CC (ADALAT 2-[address] CC) 60 MG 10:31: daily. Hospit a 24 hr 58 l tablet sevelamer 2020-08 Yes 800mg Q.[id number] Take 800 Methodi (RENAGEL) 2-[id number] 800 MG 10:31: 3D mouth 3 Hospita tablet 58 (three) l times a day with meals. garlic 2020-08 Yes Take by Methodi (garlic 2-[address] oiL) 1,000 10:31: Patient Hosp clay mg capsule 58 take l 2000mg folic acid 2020-08 Yes 1mg QD Take 1 mg Me thodi (FOLVITE) 1 2-[address] MG tablet 10:31: daily. Hospit a 58 l glucosamine 2020-08 Yes Take by Met hodi -D3-hyaluro 2-[address] michelle acid 10:31: Hospita 1,000 mg- 58 l 25 mcg-1.65 mg tablet RESVERATROL 2020-08 Yes Take by Met hodi ORAL 2-[address] 10:31: Hospita 58 l docosahexae 2020-08 Yes Take by Met hodi noic 2-[address] acid-epa 10:31: Hospita (Fish OiL) 58 l 120-180 mg capsule vit B 2020-08 Yes Take by Methodi complex-C-f 2-[address] olic 10:31: Hospita ac-zinc 800 58 l mcg- 12.5 mg tablet multivit-mi 2020-08 Yes Take by Met hodi n36/iron/fo 2-[address] lic acid 10:31: Hospita (GERITOL 58 l COMPLETE ORAL) iron, 2020-08 Yes 45mg QD Take 45 mg Method i carbonyl, 2-[address] 45 mg 10:31: daily. Hospita tablet 58 l thiamine 50 2020-08 Yes 50mg QD Take 50 mg Methodi MG tablet 2-[address] 10:31: daily. Hospita 58 l niacin 50 2020-08 Yes 50mg QD Take 50 mg Me thodi MG tablet -[address] 10:31: daily with Hospita 58 breakfast. l methionine 2020-08 Yes Take by Meth suly supp in 2-[address] carbohydrat 10:31: Hospit a (METHIONINE 58 l ORAL) NIFEdipine 2020- No 60mg QD Take 1 Meth suly ER 04-19 09-20 tablet (60 st (PROCARDIA- 00:00: 04:59 mg total) Hospita XL) 60 MG 00 :00 by mouth l 24 hr daily for tablet 30 days. amLODIPine 2020- No 10mg QD Take 10 mg Methodi (NORVASC) 04-18 08-[address] 10 mg 14:53: 00:00 daily. Hospita tablet 31 :00 l cephalexin 2020- No 500mg Q8H Take 500 M ethodi (KEFLEX) 04-18 08-[address] 500 MG 14:53: 00:00 mouth Hospita capsule 31 :00 every 8 l (eight) hours. For 10 days. Start: 04/09/21. End: 04/18/21 fenofibrate 2020- No 160mg QD Take 160 Methodi (LOFIBRA) 04-18 08-[address] 160 MG 12:30: 00:00 mouth Hospita tablet 45 :00 daily. l isosorbide 2020- No 30mg QD Take 30 mg Methodi mononitrate 04-[address] (IMDUR) 30 12:30: 00:00 daily. Hosp clay MG 24 hr 45 :00 l tablet isosorbide 2020- No 30mg QD Take 1 Meth suly mononitrate 04-18 tablet (30 s t (IMDUR) 30 00:00: 04:59 mg total) H ospita MG 24 hr 00 :00 by mouth l tablet daily for 30 days. fenofibrate 2020- No 160mg QD Take 1 Me thodi (LOFIBRA) 04-[address] 160 MG 00:00: 04:59 (160 mg Hospita tablet 00 :00 total) by l mouth daily for 30 days. acetaminoph 2019-08 Yes 1{tbl} Take [address] en-codeine 0-07 tablet by Efra s (TYLENOL 11:01: mouth Medical #3) 300-30 38 every 4 Center mg per (four) tablet hours as needed for Pain. cyanocobala 2019-08 Yes 1000ug Inject [facility] min 0-07 1,000 mcg [facility]ukes (VITAMIN 11:01: intramuscu Med ical B-12) 1,000 38 larly Center mcg/mL once. injection amLODIPine 2019-08 Yes 10mg QD Take [address] (NORVASC) 0-07 by mouth [facility] 10 MG 11:01: daily. Medical tablet 38 Center losartan 2019-08 Yes 100mg QD Take [address] (COZAAR) 0-07 mg by [facility] 100 MG 11:01: mouth Medical tablet 38 daily. Center hydrochloro 2019-08 Yes 12.5mg QD Take 12.[address] thiazide 0-07 mg by [facility]ukes (HYDRODIURI 11:01: mouth Medic al L) 12.5 MG 38 daily. Center tablet folic acid 2019-08 Yes 1mg QD Take [address] (FOLVITE) 1 0-07 by mouth Luke s MG tablet 11:01: daily. Medica l 38 Center oxybutynin 2019-08 Yes 5mg Q.5D Take [address] (DITROPAN) 0-07 by mouth 2 Dawna es 5 MG tablet 11:01: (two) Medic al 38 times Center daily . fenofibrate 2019-08 Yes 160mg QD Take [address] (TRIGLIDE,L 0-07 mg by [facility]ukes OFIBRA) 160 11:01: mouth Medic al MG tablet 38 daily. [place] estradiol 2019-[address] (VAGIFEM) 0-07 mcg [facility]ukes 25 mcg 11:01: vaginally Medica l vaginal 38 daily. [place] tablet nitrofurant 2019-08 Yes 100mg QD Take [address] oin, 0-07 mg by [facility]ukes macrocrysta 11:01: mouth Medic al l-monohydra 38 daily . Cente r te, (MACROBID) 100 MG capsule garlic 2019-08 Yes Take by [facility] (GARLIC 0-07 mouth. [facility]ukes OIL) 1,000 11:01: Medical mg Cap 38 [place] ginkgo 2019-08 Yes Take by [facility] biloba 40 0-07 mouth. [facility]ukes mg Tab 11:01: Medical 38 [place] multivitami 2019-08 Yes 1{tbl} QD Take [address] n with 0-07 tablet by LuNetli minerals 11:01: mouth Medical tablet 38 daily. [place] ascorbic 2019-08 Yes 1000mg QD Take 1,[address] acid 0-07 mg by Lukes (VITAMIN C) 11:01: mouth Medic al 1000 MG 38 daily. [place] tablet glucosamine 2019-08 Yes 1{tbl} Q.[id number] Take [address] -chondroiti 0-07 [id number] tablet by [facility]ukes n 500-400 11:01: 3D mouth 3 Medic al mg tablet 38 (three) Center times daily. niacin 500 2019-08 Yes 500mg Take [address] MG tablet 0-07 mg by [facility]ukes 11:01: mouth Medical 38 daily with Center breakfast. iron 30 mg 2019-08 Yes Take by [facility] Tab 0-07 mouth. [facility] 11:01: Medical 38 [place] coenzyme 2019-08 Yes 100mg QD Take [address] Q10 100 mg 0-07 mg by [facility]ukes capsule 11:01: mouth Medical 38 daily. [place] cholecalcif 2019-08 Yes 5000U QD Take 5,[address] ankita, 0-07 Units by [facility]ukes vitamin D3, 11:01: mouth Medic al 5,000 unit 38 daily. [place] Tab magnesium 2019-08 Yes 250mg Take [address] 250 mg Tab 0-07 mg by [facility]ukes tablet 11:01: mouth. Medical 38 [place] acetaminoph 2019-08 Yes 1{tbl} Take [address] en-codeine 0-07 tablet by Efra s (TYLENOL 11:01: mouth Medical #3) 300-30 38 every 4 Center mg per (four) tablet hours as needed for Pain. cyanocobala 2019-08 Yes 1000ug Inject [facility] min 0-07 1,000 mcg [facility] (VITAMIN 11:01: intramuscu Med ical B-12) 1,000 38 larly Center mcg/mL once. injection amLODIPine 2019-08 Yes 10mg QD Take [address] (NORVASC) 0-07 by mouth [facility]ukes 10 MG 11:01: daily. Medical tablet 38 [place] losartan 2019-08 Yes 100mg QD Take [address] (COZAAR) 0-07 mg by [facility]ukes 100 MG 11:01: mouth Medical tablet 38 daily. [place] hydrochloro 2019-08 Yes 12.5mg QD Take 12.[address] thiazide 0-07 mg by Lukes (HYDRODIURI 11:01: mouth Medic al L) 12.5 MG 38 daily. [place] tablet folic acid 2019-08 Yes 1mg QD Take [address] (FOLVITE) 1 0-07 by mouth Luke s MG tablet 11:01: daily. Medica l 38 [place] oxybutynin 2019-08 Yes 5mg Q.5D Take [address] (DITROPAN) 0-07 by mouth 2 Dawna es 5 MG tablet 11:01: (two) Medic al 38 times Center daily . fenofibrate 2019-08 Yes 160mg QD Take [address] (TRIGLIDE,L 0-07 mg by [facility]ukes OFIBRA) 160 11:01: mouth Medic al MG tablet 38 daily. [place] estradiol 2019-[address] (VAGIFEM) 0-07 mcg [facility]ukes 25 mcg 11:01: vaginally Medica l vaginal 38 daily. [place] tablet nitrofurant 2019-08 Yes 100mg QD Take [address] oin, 0-07 mg by [facility]ukes macrocrysta 11:01: mouth Medic al l-monohydra 38 daily . Niki quiros, (MACROBID) 100 MG capsule garlic 2019-08 Yes Take by [facility] (GARLIC 0-07 mouth. [facility]ukes OIL) 1,000 11:01: Medical mg Cap 38 [place] ginkgo 2019-08 Yes Take by [facility] biloba 40 0-07 mouth. [facility]ukes mg Tab 11:01: Medical 38 [place] multivitami 2019-08 Yes 1{tbl} QD Take [address] n with 0-07 tablet by LuNetli minerals 11:01: mouth Medical tablet 38 daily. [place] ascorbic 2019-08 Yes 1000mg QD Take 1,[address] acid 0-07 mg by Lukes (VITAMIN C) 11:01: mouth Medic al 1000 MG 38 daily. [place] tablet glucosamine 2019-08 Yes 1{tbl} Q.[id number] Take [address] -chondroiti 0-07 [id number] tablet by LuNetli n 500-400 11:01: 3D mouth 3 Medic al mg tablet 38 (three) Center times daily. niacin 500 2019-08 Yes 500mg Take [address] MG tablet 0-07 mg by [facility]ukes 11:01: mouth Medical 38 daily with Center breakfast. iron 30 mg 2019-08 Yes Take by [facility] Tab 0-07 mouth. [facility] 11:01: Medical 38 [place] coenzyme 2019-08 Yes 100mg QD Take [address] Q10 100 mg 0-07 mg by [facility]ukes capsule 11:01: mouth Medical 38 daily. [place] cholecalcif 2019-08 Yes 5000U QD Take 5,[address] ankita, 0-07 Units by LuNetli vitamin D3, 11:01: mouth Medic al 5,000 unit 38 daily. [place] Tab magnesium 2019-08 Yes 250mg Take [address] 250 mg Tab 0-07 mg by [facility]ukes tablet 11:01: mouth. Medical 38 [place] ALPRAZolam Yes .5mg Take 0.[address] (XANAX) 0.5 9-08 mg by [facility]ukes MG tablet 00:00: mouth as Medi judson 00 needed. [place] ALPRAZolam Yes .5mg Take 0.[address] (XANAX) 0.5 9-08 mg by [facility]ukes MG tablet 00:00: mouth as Medi judson 00 needed. [place] isosorbide Yes Comments: [facility] mononitrate 4-11 | Filled Luke s (IMDUR) 30 00:00: Date: Nov Me dical MG 24 hr 00 11 2019 Center tablet 12:00AM Duration: 90 isosorbide 2018- Yes Comments: [facility] mononitrate 4-11 | Filled Luke s (IMDUR) 30 00:00: Date: Nov Me dical MG 24 hr 2018 [place] tablet 12:00AM Duration: 90 Nystatin Nystatin Yes Steph 1 Comm on 04-21 [place] applicatio Spirit 00:00: n to - [facility] 00 affected [facility] Calcium 500 Calcium 500 Yes Steph 1 tablet Common [place] after a Spirit meal [facility] Garlic Oil Garlic Oil Yes Steph as Co mmon [place] directed [facility] Benadryl Benadryl Yes Steph 1 tab at Co mmon Allergy Allergy [place] bedtime Spiri [facility] [id number] Yes Steph as Co mmon [place] directed [facility] Multi Multi Yes Steph as Common Complete Complete [place] directed Sp david [facility] CoQ10 CoQ10 Yes Steph 1 1/2 tabs Common [place] with a [facility] Folic Acid Folic Acid Yes Steph 1 tablet Common [place] [facility] Glucosamine Glucosamine Yes Steph 1 capsule Common [place] with a [facility] Isosorbide Isosorbide Yes Steph 1 tablet Common Mononitrate Mononitrate [place] in the Spirit ER ER morning [facility] Vagifem Vagifem Yes Steph 1 tablet Comm on Free[place] [facility] Niacin Niacin Yes Steph 1 capsule Commo n Flush-Free Flush-Free [place] Sp david Ex [facility] Ex [facility] Tylenol # 3 Tylenol # 3 Yes Steph one to two Common [place] tab [facility] Fenofibrate Fenofibrate Yes Steph 1 tablet Common [place] with food [facility] Fish Oil Fish Oil Yes Steph 1 capsule C ommon [place] [facility] Ginkoba Ginkoba Yes Steph as Common [place] directed [facility] Amlodipine Amlodipine Yes Steph 1 tablet Common Besylate Besylate [place] [facility] - [facility] Magnesium Magnesium Yes Steph 1 tablet Common [place] with a Spirit meal - [facility] Iron Iron Yes Steph 1 tablet Common [place] [facility] - [facility] Hydrochloro Hydrochloro Yes Steph TAKE 1 Common thiazide thiazide [place] TABLET BY S pirit MOUTH ONCE - CHI DAILY IN [facility] Losartan Losartan Yes Steph TAKE 1 Comm on Potassium Potassium [place] TABLET BY Spirit MOUTH ONCE - CHI DAILY [facility] Oxybutynin Oxybutynin Steph TAKE 1 Common Chloride Chloride 05-17 [place] TABLET BY Spirit 00:00 MOUTH - CHI :00 TWICE DAILY [facility] Immunizations Ordered Immunization Filled Immunization Date Status Commen ts Source Name Name ARA CHAVEZ 2020-10-09 Completed Methodis t MRNA VACCINATION 00:00:00 Hospital ARA ZUNIGASampson 2020-09-12 Completed Methodis t MRNA VACCINATION 00:00:00 Hospital Vital Signs Vital Name Observation Time Observation Value Comments Source HEIGHT 2020-05-14 00:00:00 157.5 cm WEIGHT 2020-05-14 00:00:00 70.262 kg Heart rate 2021-12-08 21:25:00 79 /min [facility] Respiratory rate 2021-12-08 21:25:00 18 /min [facility] Oxygen saturation in 2021-12-08 21:25:00 99 /min [facility] Arterial blood by [facility] Pulse oximetry Branch Systolic blood 2021-12-08 19:38:00 184 mm[Hg] Univer sity of pressure [facility] Diastolic blood 2021-12-08 19:38:00 63 mm[Hg] Unive unm cancer center of pressure [facility] Body temperature 2021-12-08 19:38:00 36 [facility] height 2021-12-07 22:04:00 154.9 cm [facility] Body weight 2021-12-07 22:04:00 52.617 kg [facility] BMI 2021-12-07 22:04:00 21.92 kg/m2 [facility] HEIGHT 2020-06-26 13:06:00 157.5 cm HEIGHT 2020-06-26 13:06:00 157.5 cm HEIGHT 2020-06-06 00:00:00 157.5 cm WEIGHT 2020-06-06 00:00:00 71.215 kg HEIGHT 2020-05-14 00:00:00 157.5 cm WEIGHT 2020-05-14 00:00:00 70.262 kg HEIGHT 2020-05-14 00:00:00 157.5 cm WEIGHT 2020-05-14 00:00:00 71.215 kg HEIGHT 2020-05-14 00:00:00 157.5 cm WEIGHT 2020-05-14 00:00:00 71.215 kg WEIGHT 2020-03-29 13:11:30 72 kg Systolic blood 2021-08-15 16:11:00 171 mm[Hg] Method [facility] pressure Diastolic blood 2021-08-15 16:11:00 79 mm[Hg[facility] pressure Heart rate 2021-08-15 16:11:00 80 /min [facility] Body temperature 2021-08-15 16:11:00 36.44 Jillian [facility] Body height 2021-08-15 16:11:00 157.5 cm [facility] Body weight 2021-08-15 16:11:00 64.864 kg [facility] BMI 2021-08-15 16:11:00 26.16 kg/m2 [facility] Oxygen saturation in 2021-08-15 16:11:00 97 /min [facility] Arterial blood by Pulse oximetry Respiratory rate 2021-04-18 17:19:35 18 /min [facility] Procedures Procedure Date / Time Performing Clinician Source Performed PROTHROMBIN TIME / INR 2021-12-08 15:57:00 Aleah Riley Unive rsity [facility] ACTIVATED PARTIAL THRMPLAS 2021-12-08 15:57:00 [facility] SURFACE 2021-12-08 15:56:00 [facility] ANTIBODY [facility] PHOSPHORUS 2021-12-08 10:48:00 Yvan [facility] MAGNESIUM 2021-12-08 10:48:00 Aleah Riley [facility] Marco AntonioMarixa Blackmon [facility] FERRITIN SERUM 2021-12-08 10:48:[address] [facility] BASIC METABOLIC PANEL (NA, 2021-12-08 10:48:00 Aleah Riley [facility] K, CL, CO2, GLUCOSE, BUN, [facility] edical Branch CREATININE, CA) HEPATITIS B SURFACE 2021-12-08 10:48:00 Yvan [facility] ANTIGEN [facility] COVID-19 (ID NOW RAPID 2021-12-07 17:32:00 Charline Epstein [facility] TESTING) Medical Branch HB ECG ROUTINE & RHYTHM 2021-12-07 16:08:58 Charline Epstein [facility] STRIP Medical Branch TROPONIN I 2021-12-07 16:06:00 Charline Epstein [facility] COMP. METABOLIC PANEL 2021-12-07 16:06:00 Charline Epstein [facility] ([id number]) Medical Branch IRON PANEL 2021-12-07 16:06:[address] [facility] CBC WITH DIFF 2021-12-07 16:06:00 Charline Epstein [facility] N-TERMINAL PRO-BNP 2021-12-07 16:06:00 Charline Epstein [facility] XR CHEST 1 VW 2021-12-07 15:58:20 Charline Epstein [facility] NOTICE OF PRIVACY 2021-12-07 15:11:17 Doctor Unassigned, [facility] PRACTICES [place] [facility] CREATION, AV FISTULA 2021-10-14 18:50:00 [facility] IONIZED CALCIUM 2021-04-18 10:38:00 [facility] COMPREHENSIVE METABOLIC 2021-04-18 10:38:00 Aniyah Stephens [facility] PANEL PHOSPHORUS LEVEL 2021-04-18 10:38:00 Aniyah Stephens H ospital HEMOGLOBIN & HEMATOCRIT 2021-04-18 10:38:00 [facility] ESTIMATED GFR 2021-04-18 10:38:00 Aniyah Stephens Ho spital HEMOGLOBIN & HEMATOCRIT 2021-04-17 23:45:00 [facility] HEMODIALYSIS 2021-04-17 17:45:45 [facility] TRANSFUSE RED BLOOD CELLS 2021-04-17 16:02:00 [facility] COMPREHENSIVE METABOLIC 2021-04-17 10:58:00 Aniyah Stephens [facility] PANEL CBC WITH PLATELET AND 2021-04-17 10:58:00 Aniyah Stephens [facility] DIFFERENTIAL MAGNESIUM LEVEL 2021-04-17 10:58:00 Aniyah Stephens spital PHOSPHORUS LEVEL 2021-04-17 10:58:00 Aniyah Stephens ospital VITAMIN B12 LEVEL 2021-04-17 10:58:[address] [facility] FOLATE LEVEL 2021-04-17 10:58:00 Aniyah Stephens spital THYROID STIMULATING 2021-04-17 10:58:00 [facility] T4, FREE 2021-04-17 10:58:00 Aniyah Stephens spital PROTHROMBIN TIME WITH INR 2021-04-17 10:58:00 Aniyah Stephens [facility] BILIRUBIN DIRECT 2021-04-17 10:58:00 Aniyah Stephens H ospital ESTIMATED GFR 2021-04-17 10:58:00 nAiyah Stephens Ho spital SMEAR REVIEW 2021-04-17 10:58:00 Aniyah Stephens Ho spital HEMOGLOBIN & HEMATOCRIT 2021-04-17 03:15:00 Aniyah Stephens [facility] HEMOGLOBIN & HEMATOCRIT 2021-04-16 19:30:00 [facility] HEMODIALYSIS 2021-04-16 13:28:55 [facility] POC GLUCOSE 2021-04-16 13:02:00 Gen Sanchez Ho spital Luc COMPREHENSIVE METABOLIC 2021-04-16 07:15:00 Aniyah Stephens [facility] PANEL ESTIMATED GFR 2021-04-16 07:15:00 Aniyah Stephens Ho spital IONIZED CALCIUM 2021-04-16 07:15:00 Aniyah Stephens spital PHOSPHORUS LEVEL 2021-04-16 07:15:00 Aniyah Stephens ospital MAGNESIUM LEVEL 2021-04-16 07:15:00 Aniyah Stephens spital HC COMPLETE BLD COUNT 2021-04-16 07:14:00 Aniyah Stephens [facility] W/AUTO DIFF LACTIC ACID LEVEL 2021-04-16 07:14:[address] [facility] PROTHROMBIN TIME WITH INR 2021-04-16 07:14:00 Aniyah Stephens [facility] PARTIAL THROMBOPLASTIN 2021-04-16 07:14:00 [facility] TIME (PTT) FIBRINOGEN 2021-04-16 07:14:00 Aniyah Stephens spital SMEAR REVIEW 2021-04-16 07:14:00 Aniyah Stephens spital POC GLUCOSE 2021-04-16 06:35:00 Gen Sanchez spital Luc CTA ABD/PEL FOR BLEEDING 2021-04-16 03:16:06 Rian Soto [facility] Livia POC GLUCOSE 2021-04-16 01:56:00 Charles [facility] Livia TRANSFUSE RED BLOOD CELLS 2021-04-16 01:45:00 Charles [facility] Livia TRANSFUSE FRESH FROZEN 2021-04-15 23:49:[address] [facility] [place] PLASMA Livia PREPARE RBC 2021-04-15 23:00:00 [facility]ARE FRESH FROZEN 2021-04-15 23:00:00 Charles [facility] PLASMA Livia ECG 12-LEAD 2021-04-15 22:36:06 [facility] Emily CT ABDOMEN PELVIS WO 2021-04-15 22:05:18 [facility] CONTRAST Emily LACTIC ACID LEVEL 2021-04-15 21:15:00 [facility] Emily PROTHROMBIN TIME WITH INR 2021-04-15 21:15:00 [facility] Emily COMPREHENSIVE METABOLIC 2021-04-15 21:15:00 [facility] PANEL Emily HC COMPLETE BLD COUNT 2021-04-15 21:15:00 [facility] W/AUTO DIFF Emily ESTIMATED GFR 2021-04-15 21:15:00 [facility] Emily SMEAR REVIEW 2021-04-15 21:15:00 [facility] Emily SURGICAL PATHOLOGY REQUEST 2021-04-15 18:53:00 [facility] US NEEDLE BIOPSY 2021-04-15 18:27:20 Bronson Powell [facility] ospital COMPREHENSIVE METABOLIC 2021-04-15 08:43:00 [facility] PANEL Livia IONIZED CALCIUM 2021-04-15 08:43:00 [facility] HC COMPLETE BLD COUNT 2021-04-15 08:43:00 Rian Soto [facility] W/AUTO DIFF Livia MAGNESIUM LEVEL 2021-04-15 08:43:00 [facility] Livia PHOSPHORUS LEVEL 2021-04-15 08:43:00 [facility] PROTHROMBIN TIME WITH INR 2021-04-15 08:43:00 [facility] ESTIMATED GFR 2021-04-15 08:43:00 [facility] SMEAR REVIEW 2021-04-15 08:43:00 [facility] HEMODIALYSIS 2021-04-14 13:56:56 Andre [facility] spital HEPATITIS B SURFACE 2021-04-14 13:52:00 [facility] ANTIBODY COMPREHENSIVE METABOLIC 2021-04-14 11:23:00 [facility] PAN[facility] Livia CBC WITH PLATELET AND 2021-04-14 11:23:00 Charles [facility] DIFFERENTIAL Livia IONIZED CALCIUM 2021-04-14 11:23:00 Charles [facility] TOTAL IRON BINDING 2021-04-14 11:23:00 [facility] CAPACITY FERRITIN LEVEL 2021-04-14 11:23:00 Andre [facility] spital ESTIMATED GFR 2021-04-14 11:23:00 [facility] SMEAR REVIEW 2021-04-14 11:23:00 [facility] CLOSTRIDIUM DIFFICILE 2021-04-14 03:59:00 [facility] RENAL W WO CONTRAST 2021-04-14 02:58:56 Andre [facility] HEMODIALYSIS 2021-04-13 13:00:52 Andre [facility] spital DOUBLE-STRANDED DNA 2021-04-13 10:38:00 [facility] (DSD[facility] ANTIBODIES, CRITHIDIA HEPATITIS B CORE ANTIBODY 2021-04-13 10:38:00 Charles [facility] TOTAL Livia HC COMPLETE BLD COUNT 2021-04-13 10:38:00 Charles [facility] W/AUTO DIFF Livia COMPREHENSIVE METABOLIC 2021-04-13 10:38:00 [facility] PANEL Livia MAGNESIUM LEVEL 2021-04-13 10:38:00 [facility] Livia PHOSPHORUS LEVEL 2021-04-13 10:38:00 [facility] ESTIMATED GFR 2021-04-13 10:38:00 [facility] SMEAR REVIEW 2021-04-13 10:38:00 Charles [facility] HEMODIALYSIS 2021-04-12 21:18:06 Bronson Powellist Ho spital CHRISTINE 2021-04-12 21:12:00 [facility] SERUM ELECTROPHORESIS 2021-04-12 21:12:00 Andre [facility] C4 COMPLEMENT COMPONENT 2021-04-12 21:11:00 [facility] SURFACE 2021-04-12 21:11:00 [facility] ANTIGEN HEPATITIS B SURFACE AB, 2021-04-12 21:11:00 [facility] QUANTITATIVE PROTEIN, URINE, RANDOM 2021-04-12 20:50:00 [facility] CREATININE LEVEL, URINE, 2021-04-12 20:50:00 Andre [facility] RANDOM URINE PROTEIN 2021-04-12 20:50:00 [facility] spital ELECTROPHORESIS, RANDOM IR TUNNELED DIALYSIS 2021-04-12 19:56:32 [facility] CATHETER PLACEMENT Kelsey US GUIDED VASCULAR ACCESS 2021-04-12 19:56:32 Dami Bolivar [facility] TRANSFUSE RED BLOOD CELLS 2021-04-12 14:05:00 Dami Bolivar [facility] Kelsey HC COMPLETE BLD COUNT 2021-04-12 10:37:00 Dami Bolivar [facility] W/AUTO DIFF Kelsey COMPREHENSIVE METABOLIC 2021-04-12 10:37:00 Dami Bolivar [facility] PANEL Kelsey ESTIMATED GFR 2021-04-12 10:37:00 Dami Bolivar spital Kelsey SMEAR REVIEW 2021-04-12 10:37:00 Dami Bolivar spital Kelsey MAGNESIUM LEVEL 2021-04-12 10:37:00 Charles [facility] ABO AND RH CONFIRMATION 2021-04-12 05:51:00 [facility] Kelsey URINE CULTURE 2021-04-12 05:48:00 Bolivar [facility] Ho spital Kelsey SODIUM LEVEL, URINE, 2021-04-12 05:48:00 [facility] RANDOM Kelsey URINALYSIS SCREEN AND 2021-04-12 05:48:00 [facility] MICROSCOPY, WITH REFLEX TO Kelsey CULTURE VITAMIN B12 LEVEL 2021-04-12 04:18:00 [facility] Kelsey FOLATE LEVEL 2021-04-12 04:18:00 [facility] Ho spital Kelsey PHOSPHORUS LEVEL 2021-04-12 04:18:00 [facility] ospital Kelsey CREATINE KINASE, TOTAL 2021-04-12 04:18:00 [facility] Kelsey PREPARE RBC 2021-04-12 04:18:00 [facility] spital Kelsey LACTIC ACID LEVEL 2021-04-12 04:18:00 [facility] Kelsey PARATHYROID HORMONE 2021-04-12 04:18:00 [facility] Kelsey IONIZED CALCIUM 2021-04-12 04:18:00 [facility] spital Kelsey URINE CULTURE 2021-04-12 01:54:00 Paulie Baez [facility] COVID-19 QUALITATIVE 2021-04-12 01:52:[address] [facility] [place] RT-PCR URINALYSIS SCREEN AND 2021-04-12 01:38:00 Paulie Baez [facility] MICROSCOPY, WITH REFLEX TO CULTURE XR CHEST 1 VW PORTABLE 2021-04-12 01:07:42 Paulie Baez [facility] ECG 12-LEAD 2021-04-12 00:45:36 K[facility] spital Kelsey HC COMPLETE BLD COUNT 2021-04-12 00:37:00 Paulie Baez [facility] W/AUTO DIFF PROTHROMBIN TIME WITH INR 2021-04-12 00:37:[address] [facility] PARTIAL THROMBOPLASTIN 2021-04-12 00:37:00 Paulie Baez [facility] TIME (PTT) COMPREHENSIVE METABOLIC 2021-04-12 00:37:00 Paulie Baez Anupama [facility] PANEL MAGNESIUM LEVEL 2021-04-12 00:37:00 [facility] PHOSPHORUS LEVEL 2021-04-12 00:37:00 Paulie Baez [facility] ESTIMATED GFR 2021-04-12 00:37:00 Paulie Baez [facility] SMEAR REVIEW 2021-04-12 00:37:00 Paulie Baez [facility] ECG ED PRELIMINARY 2021-04-12 00:22:20 [facility] INTERPRETATION Plan of Care Planned Activity Planned Date Details Comments Source Future Scheduled 2021-10-02 65+ PNEUMOCOCCAL [facility] Test 10:44:09 VACCINE (1 of 4 - PCV13) [code = 65+ PNEUMOCOCCAL VACCINE (1 of 4 - PCV13)] Future Scheduled 2021-10-02 Hepatitis C screening [facility] Test 10:44:09 (procedure) [code = 758470139] Future Scheduled 2021-10-02 SHINGLES VACCINES (#1) [facility] Test 10:44:09 [code = SHINGLES VACCINES (#1)] Future Scheduled 2021-10-02 INFLUENZA VACCINE Method [facility] Hospital Test 10:44:09 [code = INFLUENZA VACCINE] Future Scheduled 2021-10-02 COVID-19 VACCINE (3 - [facility] Test 10:44:09 Booster for Moderna series) [code = COVID-19 VACCINE (3 - Booster for Moderna series)] Future Scheduled 2021-05-01 INFLUENZA VACCINE (#1) [facility] Test 00:00:00 [code = INFLUENZA Medical Ce nter VACCINE (#1)] Future Scheduled 2021-05-01 INFLUENZA VACCINE (#1) [facility] Test 00:00:00 [code = INFLUENZA Medical Ce nter VACCINE (#1)] Future Scheduled 2020-08-[address] [facility] Test 00:00:00 (12+) [code = Medical Center DEPRESSION SCREENING (12+)] Future Scheduled 2020-08-31 FALLS RISK SCREENING [facility] Test 00:00:00 [code = FALLS RISK Medical C enter SCREENING] Future Scheduled 2020-08-[address] [facility] Test 00:00:00 (12+) [code = Medical Center DEPRESSION SCREENING (12+)] Future Scheduled 2020-08-31 FALLS RISK SCREENING [facility] Test 00:00:00 [code = FALLS RISK Medical C enter SCREENING] Future Scheduled 2009-07-[address] [facility] 00:00:00 WELLNESS (YEAR 2 or Medical Center FIRST YEAR if no IPPE) [code = MEDICARE ANNUAL WELLNESS (YEAR 2 or FIRST YEAR if no IPPE)] Future Scheduled 2009-07-[address] [facility] 00:00:00 WELLNESS (YEAR 2 or Medical Center FIRST YEAR if no IPPE) [code = MEDICARE ANNUAL WELLNESS (YEAR 2 or FIRST YEAR if no IPPE)] Future Scheduled 2008 PNEUMOCOCCAL 65+ YRS [facility] Test 00:00:00 (1 of 1 - Medical Center [id number] PCV13) [code = PNEUMOCOCCAL 65+ YRS (1 of 1 - [id number] PCV13)] Future Scheduled 2008 PNEUMOCOCCAL 65+ YRS [facility] Test 00:00:00 (1 of 1 - Medical Center [id number] PCV13) [code = PNEUMOCOCCAL 65+ YRS (1 of 1 - [id number] PCV13)] Future Scheduled 1993 SHINGLES VACCINES ([address] [facility] Test 00:00:00 of 2) [code = SHINGLES Medic al Center VACCINES (1 of 2)] Future Scheduled 1993 SHINGLES VACCINES ([address] [facility] Test 00:00:00 of 2) [code = SHINGLES Medic al Center VACCINES (1 of 2)] Future Scheduled 1962 DTAP/TDAP/TD VACCINES [facility] 00:00:00 (1 - Tdap) [code = Medical C enter DTAP/TDAP/TD VACCINES (1 - Tdap)] Future Scheduled 1962 DTAP/TDAP/TD VACCINES [facility] 00:00:00 (1 - Tdap) [code = Medical C enter DTAP/TDAP/TD VACCINES (1 - Tdap)] Future Scheduled 1961 HEPATITIS C SCREENING [facility] 00:00:00 [code = HEPATITIS C Medical Center SCREENING] Future Scheduled 1961 HEPATITIS C [facility]CRE[facility]ING [facility] 00:00:00 [code = HEPATITIS C Medical Center SCREENING] Future Scheduled 1955 COVID-19 VACCINE (1) [facility] Test 00:00:00 [code = COVID-[address] VACCINE (1)] Future Scheduled 1955 COVID-19 VACCINE (1) [facility] Test 00:00:00 [code = COVID-[address] VACCINE (1)] Encounters Start End Encounter Admission Attending Care Care Encounter Source Date/Time Date/Time Type Type Clinicians Facility Department ID 2021-10-03 Outpatient MDA MALCOLM [id number] 18:06:07 Andlavonneo n 2021-09-25 Outpatient [place], [facility] [id number] Common 14:02:24 Steph [id number] [facility] 2021-09-25 Outpatient [place], STLMLC STLC [id number] Common 13:27:15 Steph [id number] [facility] 2021-09-25 Outpatient [place], STLMLC STLC [id number] Common 11:08:37 Steph [id number] [facility] 2021-06-05 Inpatient [facility] Surgery [id number] [facility] 06:57:05 HARLAN 2022-01-08 2022-01-08 Outpatient [facility] [id number] [place] 00:00:00 00:00:00 GHE, 789 Method [facility] 2021-12-20 2021-12-20 [facility] [id number] [place] 00:00:00 00:00:00 GHE, 129 Method i SASRUTHA 2021-12-18 2021-12-18 amb[facility] [id number] [facility] 00:00:00 00:00:00 [facility] 2021-12-112021-12-11 Outpatient [facility] [id number] [place] 00:00:00 00:00:00 865 Method i 2021-12-11 2021-12-11 Outpatient [facility] [id number] [place] 00:00:00 00:00:00 945 Method i 2021-12-11 2021-12-11 Outpatient [facility] [id number] [place] 00:00:00 00:00:00 085 Method i 2021-12-11 2021-12-11 Outpatient TERA, [facility] [id number] [place] 00:00:00 00:00:00 VINCENT 399 Method i 2021-12-10 2021-12-10 Transition LAISHA Helton 1.2.840.114 [id number] [facility] 00:00:00 00:00:00 of Care Jefry BEST [id number] ity [facility] 4.2.7.2.686 [facility] [id number] [facility] [address] Branch 2021-12-07 2021-12-08 Emergency EpsteinCharline 1.2.840.1 [id number] [facility] 10:33:00 16:41:00 Stefanie Wagoner [id number] ity [facility] 4.2.7.2.686 [place] [id number] [facility] 095 Branch 2021-12-07 2021-12-08 Outpatient [facility] [id number] [facility] 10:33:00 16:41:00 [facility] 2021-12-04 2021-12-04 Outpatient WICKRAMASIN [facility] [id number] [place] 00:00:00 00:00:00 GHE, 057 Method i SASRUTHA 2021-11-23 2021-11-27 Inpatient LENA, [facility] [id number] [place] 00:00:00 00:00:00 NALINI 290 Method i 2021-11-13 2021-11-13 ambulatory STLMLC ST[facility] [id number] Common 00:00:00 00:00:00 [facility] 2021-11-11 2021-11-11 Outpatient [facility] [id number] [place] 00:00:00 00:00:[address] 2021-10-14 2021-10-15 Outpatient , [facility] [id number] [place] 00:00:00 00:00:[address] JAH [address] 2021-10-11 2021-10-11 Outpatient [facility] [id number] [place] 13:30:19 14:41:51 JESSICA grier 2021-10-11 2021-10-11 Outpatient TERA [facility] [id number] [place] 00:00:00 00:00:00 VINCENT 097 Method i 2021-10-11 2021-10-11 Outpatient FABRICIOGIANNAJOSSEBRAYDEN [facility] [id number] [place] 00:00:00 00:00:00 KI, [address] 2021-09-18 2021-09-18 Travel 1.2.840.1 [id number] Methodi 00:00:00 00:00:[address] 3.430.2.7 0.2.7.3.698 Ho spita .3.816852 084.8 l .8 2021-09-18 2021-09-18 Telephone Tera 1.2.840.1 [id number] Methodi 00:00:00 00:00:[address] [facility] 3.430.2.7 Hosp clay .3.745477 l .8 2021-09-12 2021-09-12 ambulatory STLMLC STLMLC [id number] Common 00:00:00 00:00:00 [facility] 2021-09-11 2021-09-11 ambulatory STLMLC STLMLC [id number] Common 00:00:00 00:00:00 [facility] 2021-09-03 2021-09-03 ambulatory STLMLC STLMLC [id number] Common 00:00:00 00:00:00 [facility] 2021-09-03 2021-09-03 Telephone Tera 1.2.840.1 [id number] Methodi 00:00:00 00:00:00 Vincent 14066.1.1 383 [facility]-i 3.430.2.7 Hosp clay .3.125525 l .8 2021-09-02 2021-09-02 ambulatory STLMLC STLMLC [id number] Common 00:00:00 00:00:00 [facility] 2021-09-02 2021-09-02 ambulatory STLC STLC [id number] Common 00:00:00 00:00:00 [facility] 2021-08-19 2021-08-19 Prep for Kameron, 1.2.840.1 [id number] Methodi 00:00:00 00:00:00 Surgery Katie [address]180.1.[address] 3.430.2.7 Hospit a .3.177026 l .8 2021-08-15 2021-08-15 Outpatient ROBIN VICENTE [facility] [id number] 12:20:28 13:23:24 GUILLE grier 2021-08-15 2021-08-15 Office Tera, 1.2.840.1 [id number] Methodi 09:47:03 11:48:30 Visit Vincent 72615.1.1 712 [facility] 3.430.2.7 Hosp clay .3.113281 l .8 2021-08-15 2021-08-15 Travel 1.2.840.1 1.2.365.371 [id number] Methodi 00:00:00 00:00:[address] 3.430.2.7 0.2.7.3.698 Ho spita .3.566721 084.8 l .8 2021-07-08 2021-07-08 Telephone Kameron 1.2.840.1 [id number] Methodi 00:00:00 00:00:[address] 3.430.2.7 Hospit a .3.231689 l .8 2021-06-04 2021-06-04 Outpatient STLMLC STLMLC [id number] Common 00:00:00 00:00:00 [facility] 2021-05-08 2021-05-08 Outpatient STLMLC STLMLC [id number] Common 00:00:00 00:00:00 [facility] 2021-05-08 2021-05-08 Outpatient STLMLC STLMLC [id number] Common 00:00:00 00:00:00 [facility] 2021-05-01 2021-05-01 Outpatient STLMLC STLMLC [id number] Common 00:00:00 00:00:00 [facility] 2021-04-11 2021-04-18 [facility] Paulie Baez 1.2.840.1 [id number] Methodi 19:09:00 14:53:00 Encounter Daim Bolivar [address]0489.1.[address] [facility]430.2.7 [facility] .3.134482 l Marianela Schuster .8 2021-04-11 2021-04-11 Travel 1.2.840.1 [id number] [id number] Methodi 00:00:00 00:00:[address] 3.430.2.7 0.2.7.3.698 [facility] .3.504303 084.8 l .8 2021-04-09 2021-04-09 Outpatient STLMLC STLMLC [id number] Common 00:00:00 00:00:00 [facility] 2021-04-05 2021-04-05 Outpatient STLMLC STLMLC [id number] Common 00:00:00 00:00:00 [facility] 2021-03-29 2021-03-29 Outpatient ROBIN VICENTE MDA MDA [id number] 00:00:00 00:00:00 GUILLE grier 2021-03-202021-03-20 Outpatient STLMLC STLMLC [id number] Common 00:00:00 00:00:00 [facility] 2021-03-11 2021-03-11 Outpatient STLMLC STLMLC [id number] Common 00:00:00 00:00:00 [facility] 2020-12-24 2020-12-24 Outpatient STLMLC STLMLC [id number] Common 00:00:00 00:00:00 [facility] 2020-12-21 2020-12-21 Outpatient STLMLC STLMLC [id number] Common 00:00:00 00:00:00 [facility] 2020-11-21 2020-11-21 Outpatient STLMLC STLMLC [id number] Common 00:00:00 00:00:00 [facility] 2020-10-25 2020-10-25 Outpatient STLMLC STLMLC [id number] Common 00:00:00 00:00:00 [facility] 2020-10-03 2020-10-03 Outpatient STLMLC STLMLC [id number] Common 00:00:00 00:00:00 [facility] 2020-09-13 2020-09-13 Outpatient STLMLC STLMLC [id number] Common 00:00:00 00:00:00 [facility] 2020-08-27 2020-08-27 Outpatient STLMLC STLMLC [id number] Common 00:00:00 00:00:00 [facility] 2020-08-27 2020-08-27 Outpatient STLMLC STLMLC [id number] Common 00:00:00 00:00:00 [facility] 2020-08-13 2020-08-13 Outpatient STLMLC STLMLC [id number] Common 00:00:00 00:00:00 [facility] 2020-08-13 2020-08-13 Outpatient STLMLC STLMLC [id number] Common 00:00:00 00:00:00 [facility] 2020-08-13 2020-08-13 Outpatient STLMLC STLMLC [id number] Common 00:00:00 00:00:00 [facility] 2020-06-26 2020-06-26 Outpatient RYAN CONTI [facility] [id number] [facility] 00:00:00 00:00:00 HARLAN 2020-06-06 2020-06-06 Outpatient RYAN CORNELIUS [facility] [id number] [facility] 00:00:00 00:00:00 HARLAN 2020-06-04 2020-06-04 [facility] [id number] Common 00:00:00 00:00:00 [facility] 2020-05-21 2020-05-21 Outpatient ROBIN DAVIS [facility] [id number] [facility] 00:00:00 00:00:00 2020-05-14 2020-05-14 Outpatient RYAN CONTI [facility] [id number] [facility] 00:00:00 00:00:00 HARLAN 2020-05-10 2020-05-10 Outpatient [facility] [id number] Common 16:11:00 16:11:00 [facility] 2020-04-25 2020-04-25 [id number] Common 10:40:00 10:40:00 [facility] 2020-03-29 2020-03-29 Outpatient ROBIN VICENTE MDA MDA [id number] MD 12:57:15 14:19:09 GUILLE grier 2019-10-19 2019-10-19 [id number] Common 14:40:00 14:40:00 [facility] 2019-09-29 2019-09-29 [facility] [id number] Common 13:36:00 13:36:00 [facility] 2019-04-28 2019-04-28 [facility] [id number] Common 11:44:00 11:44:00 [facility] 2019-04-26 2019-04-26 [facility] [id number] Common 14:30:00 14:30:[address] [facility] 2019-04-22 2019-04-22 [facility] [id number] Common 11:20:00 11:20:[address] [facility] 2019-04-20 2019-04-20 [facility] [id number] Common 14:00:00 14:00:[address] [facility] 2018-12-16 2018-12-16 [facility] [id number] Common 11:59:00 11:59:[address] [facility] 2018-05-04 2018-05-04 [facility] [id number] Common 10:15:00 10:15:[address] [facility] 2018-04-26 2018-04-26 [facility] [id number] Common 09:00:00 09:00:[address] [facility] 2018-04-21 2018-04-21 [facility] [id number] Common 09:30:00 09:30:[address] [facility] Results Test Description Test Time Test Comments Results Result Comments Source Hepatitis B Surface Antibody (HBsAb) 2021-12-08 17:56:34 Test Item Value Reference Range Interpretation Comme nts HBsAB (test code = 1202929978) Negative HBsAb Semi-Quantitative (test code = mIU/mL 4537762382) GEOVANY (test code = GEOVANY) Interpretation: ?Hepatitis B Surface Antibody ? Negative - Patient is considered to be not immune to infection with HBV. ? ? Positive - Anti-HBs detected at greater than or equal to 12 mIU/mL. ?Patient is considered to be immune to infection with HBV. ? [facility] / [id number] 16:44:26 Test Item Value Reference Range Interpretation Comments PROTIME PATIENT (test See_Comment H [Auto mated message] code = 5964-2) The system [employer] ich generated this result transmitted ref erence range: 10.1 - 1 2.6 Seconds. The reference range was not used to int erpret this result as normal/abnormal . INR (test code = 6301-6) Nor mal INR <1.1; Warfarin Therap eutic range 2.0 to 3. 0 or 2.5 to 3.5, dep ending upon the indica tions. Lab Interpretation (test Abnormal code = 29571-6) [facility]ACTIV[facility] PARTIAL THRMPLAS [id number] 16:44:26 Test Item Value Reference Range Interpretation Comments APTT Patient (test code = See_Comment [ Automated message] 3173-2) The system [employer] h generated this result transmitted ref erence range: 26 - 36 Seconds. The re ference range was not u sed to interpret this result as normal/abnor mal. Lab Interpretation (test Normal code = 11662-1) [facility] WestFerritin [id number] 15:21:29 Test Item Value Reference Range Interpretation Comments FERRITIN (test code = 727.0 ng/mL 11.0-264.0 H 3793522823) GEOVANY (test code = GEOVANY) Biotin has been reported to cause a negative bias, interpret results relative to patient's use of biotin. Lab Interpretation (test Abnormal code = 73888-6) [facility] West[facility]atitis [facility] Surface Antigen (HBsAg)2021-12-08 15:17:08 Test Item Value Reference Range Interpretation Comments HBsAg Semi-Quantitative (test code = Negative Negative 5195-3) [facility] WestPhosphorus [id number] 14:46:08 Test Item Value Reference Range Interpretation Comments PHOSPHORUS (test code = 3.9 mg/dL 2.5-5.0 Slig ht hemolysis 6533560889) Lab Interpretation (test Normal code = 76323-9) [facility] WestIRON [id number] 14:04:24 Test Item Value Reference Range Interpretation Comments IRON (test code = 8343675584) 107 ug/dL 50-160 TIBC (test code = 2528218532) 244 ug/dL 250-410 L % FE SAT (test code = 5886411861) 44 % 20-50 Lab Interpretation (test code = Abnormal 59418-5) [facility] WestMAGNESIUM2022-04-10 11:30:17 Test Item Value Reference Range Interpretation Comments MAGNESIUM (test code = 9799276227) 1.5 mg/dL 1.7-2.4 L Lab Interpretation (test code = Abnormal 26980-5) [facility] METABOLIC PANEL (NA, K, CL, CO2, GLUCOSE, BUN, CREATININE, CA)2021-12-08 11:30:17 Test Item Value Reference Range Interpretation Comments NA (test code = 136 mmol/L 135-145 7047545549) K (test code = 4.0 mmol/L 3.5-5.0 Slight 6449806755) hemolysis CL (test code = 107 mmol/L 98-108 0061336714) CO2 TOTAL (test code 23 mmol/L 23-31 = 2697659591) AGAP (test code = 2-16 8948167323) BUN (test code = 22 mg/dL 7-23 Slight 7925961576) hemolysis GLUCOSE (test code = 97 mg/dL 70-110 8383597416) CREATININE (test code 3.16 mg/dL 0.50-1.04 H = 8072632051) CALCIUM (test code = 8.0 mg/dL 8.6-10.6 L 4075516575) eGFR (test code = mL/min/1.73m2 6537851232) GEOVANY (test code = GEOVANY) Association of Glomerular Filtration Rate (GFR) and Staging of Kidney Disease* + -----+ --------+ +| GFR (mL/min/1.73 m2) ?| With Kidney Damage ?| ?Without Kidney Damage+ +------- +---- --+| ?>90 ?| ?Stage one ?| ? Normal ?+ ------+ ---------+--------- +| ?60-89 ?| ?Stage two ?| ? Decreased GFR ? + -----+ --------+ +| ?30-59 ?| ?Stage three ?| ? Stage three ? + -----+ --------+ +| ?15-29 ?| ?Stage four ? | ? Stage four ?+ ------+ ---------+--------- +| ?<15 (or dialysis) ? ?| ?Stage five ? | ? Stage five ?+ ------+ ---------+--------- + *Each stage assumes the associated GFR level has been in effect for at least three months. ?Stages 1 to 5, with or without kidney disease, indicate chronic kidney disease. Notes: Determination of stages one and two (with eGFR >59mL/min/1.73 m2) requires estimation of kidney damage for at least three months as defined by structural or functional abnormalities of the kidney, manifested by either:Pathological abnormalities or Markers of kidney damage (including abnormalities in the composition of the blood or urine or abnormalities in imaging tests). Lab Interpretation Abnormal (test code = 97615-0) [facility] WestTROPONIN [id number] 16:54:17 Test Item Value Reference Interpretation Comments Range TROPONIN I (test 0.021 ng/mL See_Comment [Automated code = 3180712158) message] The system which generated this result transmitted reference range : <=0.034. The reference range was not used to interpret this result as normal/abnormal . GEOVANY (test code = Reference (Normal) GEOVANY) Range (defined by the 99th percentile reference limit): <= 0.034 ng/mL Note: Cardiac troponin begins to rise 3-4 hours after the onset of ischemia. Repeat in 4-6 hours if the sample was drawn within 3-4 hours of the onset of the symptom and found normal. Diagnosis of myocardial injury is made with acute changes in cTn concentrations with at least one serial sample above the 99th percentile upper reference limit (URL), taken together with the patient's clinical presentation. Biotin has been reported to cause a negative bias, interpret results relative to patient's use of biotin. Lab Interpretation Normal (test code = 04786-0) [facility] WestN-TERMINAL [id number] 16:50:56 Test Item Value Reference Range Interpretation Comments NT-proBNP (test code 4390 pg/mL See_Comment H [Autom ated = 2982002511) message] The system which generated this result transmitted reference range : <=450. The reference range was not used to interpret this result as normal/abnormal . GEOVANY (test code = GEOVANY) Biotin has been reported to cause a negative bias, interpret results relative to patient's use of biotin. Lab Interpretation Abnormal (test code = 96024-8) [facility] WestCOM. METABOLIC PANEL (32979)2021-12-07 16:42:14 Test Item Value Reference Range Interpretation Comments NA (test code = 137 mmol/L 135-145 2833169881) K (test code = 4.4 mmol/L 3.5-5.0 3642031053) CL (test code = 103 mmol/L 98-108 6959764726) CO2 TOTAL (test code = 23 mmol/L 23-31 8478423792) AGAP (test code = 2-16 0806204446) BUN (test code = 19 mg/dL 7-23 1564449262) GLUCOSE (test code = 96 mg/dL 70-110 9979323121) CREATININE (test code = 2.76 mg/dL 0.50-1.04 H 0460654679) TOTAL BILI (test code = 0.9 mg/dL 0.1-1.5 3894598799) CALCIUM (test code = 8.5 mg/dL 8.6-10.6 L 5480481172) T PROTEIN (test code = 7.0 g/dL 6.3-8.2 0596458805) ALBUMIN (test code = 4.0 g/dL 3.5-5.0 2252213788) ALK PHOS (test code = 69 U/L 34-122 0265081874) ALTv (test code = 19 U/L 5-35 1742-6) AST(SGOT) (test code = 45 U/L 13-40 H 7893014639) eGFR (test code = mL/min/1.73m2 3840799501) GEOVANY (test code = GEOVANY) Association of Glomerular Filtration Rate (GFR) and Staging of Kidney Disease* + --+ --+ ------+| GFR (mL/min/1.73 m2) ?| With Kidney Damage ?| ?Without Kidney Damage+ --------+ --------+ +| ?>90 ?| ?Stage one ?| ? Normal ?+ ---+ ---+ -------+| ?60-89 ?| ?Stage two ?| ? Decreased GFR ? + --+ --+ ------+| ?30-59 ?| ?Stage three ?| ? Stage three ? + --+ --+ ------+| ?15-29 ?| ?Stage four ? | ? Stage four ?+ ---+ ---+ -------+| ?<15 (or dialysis) ? ?| ?Stage five ? | ? Stage five ?+ ---+ ---+ -------+ *Each stage assumes the associated GFR level has been in effect for at least three months. ?Stages 1 to 5, with or without kidney disease, indicate chronic kidney disease. Notes: Determination of stages one and two (with eGFR >59mL/min/1.73 m2) requires estimation of kidney damage for at least three months as defined by structural or functional abnormalities of the kidney, manifested by either:Pathological abnormalities or Markers of kidney damage (including abnormalities in the composition of the blood or urine or abnormalities in imaging tests). Lab Interpretation Abnormal (test code = 08584-8) [facility] WITH [id number] 16:35:52 Test Item Value Reference Range Interpretation Comments WBC (test code = See_Comment [Automated 6690-2) message] The sy stem which generated this result transmitted reference range : 4.30 - 11.10 10*3/?L. The reference range was not used to interpret this result as normal/abnormal . RBC (test code = See_Comment L [Automated 789-8) message] The sy stem which generated this result transmitted reference range : 3.93 - 5.25 10*6/?L. The reference range was not used to interpret this result as normal/abnormal . HGB (test code = 8.6 g/dL 11.6-15.0 L 718-7) HCT (test code = 26.6 % 35.7-45.2 L 4544-3) MCV (test code = 111.3 fL 80.6-95.5 H 787-2) MCH (test code = 36.0 pg 25.9-32.8 H 785-6) MCHC (test code = 32.3 g/dL 31.6-35.1 786-4) RDW-SD (test code = 66.9 fL 39.0-49.9 H 20220-7) RDW-CV (test code = 16.9 % 12.0-15.5 H 788-0) PLT (test code = See_Comment L [Automated 777-3) message] The sy stem which generated this result transmitted reference range : 166 - 358 10*3/ ?L. The reference r domingo was not used to interpret this result as normal/abnormal . MPV (test code = 11.6 fL 9.5-12.9 63049-1) IPF % (test code = 4.7 % 1.3-7.7 Platelet count 0158384669) measured by fluorescence method. NRBC/100 WBC (test See_Comment [Automat ed code = 6804982288) message] The system which generated this result transmitted reference range : 0.0 - 10.0 /100 WBCs. The refer ence range was not u sed to interpret th is result as normal/abnormal . NRBC x10^3 (test code <0.01 See_Comment [Auto mated = 0726314549) message] The s ystem which generated this result transmitted reference range : 10*3/?L. The reference range was not used to interpret this result as normal/abnormal . GRAN MAT (NEUT) % 46.5 % (test code = 770-8) IMM GRAN % (test code 0.40 % = 9758259231) LYMPH % (test code = 36.3 % 736-9) MONO % (test code = 8.0 % 5905-5) EOS % (test code = 8.2 % 713-8) BASO % (test code = 0.6 % 706-2) GRAN MAT x10^3(ANC) 2.22 10*3/uL 1.88-7.09 (test code = 8437460424) IMM GRAN x10^3 (test <0.03 0.00-0.06 code = 0770177275) LYMPH x10^3 (test code 1.73 10*3/uL 1.32-3.29 = 731-0) MONO x10^3 (test code 0.38 10*3/uL 0.33-0.92 = 742-7) EOS x10^3 (test code = 0.39 10*3/uL 0.03-0.39 711-2) BASO x10^3 (test code 0.03 10*3/uL 0.01-0.07 = 704-7) Lab Interpretation Abnormal (test code = 52505-7) [facility] WestSARS-CoV-2 (COVID-19) RNA [Presence] in Respiratory specimen by ANIL with probe [id number] 03:14:02 Test Item Value Reference Range Interpretation Comments SARS-CoV-2 (COVID-19) RNA Not detected [Presence] in Respiratory specimen by ANIL with probe detection (test code = 11874-6) Whether patient is employed in a Unknown healthcare setting (test code = 76827-3) Whether the patient has symptoms Unknown related to condition of interest (test code = 16243-1) Whether the patient was Unknown hospitalized for condition of interest (test code = 86163-2) Whether the patient was admitted Unknown to intensive care unit (ICU) for condition of interest (test code = 60133-4) Whether patient resides in a Unknown congregate care setting (test code = 85745-1) status (test code = Unknown 90439-5) Date and time of symptom onset Unknown (test code = 64753-3) SARS-CoV-2 (COVID-19) RNA [Presence] in Respiratory specimen by ANIL with probe [id number] 22:19:27 Test Item Value Reference Range Interpretation Comments SARS-CoV-2 (COVID-19) RNA Not detected Not-Detected [Presence] in Respiratory specimen by ANIL with probe detection (test code = 13082-9) Whether patient is employed in a healthcare setting (test code = 06272-7) Whether the patient has symptoms related to condition of interest (test code = 76853-7) Patient was hospitalized because of this condition (test code = 46127-2) Whether the patient was admitted to intensive care unit (ICU) for condition of interest (test code = 71618-3) Whether patient resides in a congregate care setting (test code = 26968-6) Surgical pathology [id number] 18:14:56 Test Item Value Reference Range Interpretation Comments Case number (test code = [id number]) Surgical pathology See link below for report (test code = PDF Lab Report 2253) Result status (test code This is Final Report = [id number]) for [id number] [facility] RBC, 1 [id number] 15:35:00 Test Item Value Reference Range Interpretation Comments Product name (test code Red Blood Cells -1, = 25) Leukored Unit number (test code = [id number] 7480502) Product code (test code Y6372V27 = 3092) Dispense status (test Transfused code = 24) Blood expiration date (test code = 302) Blood type code (test code = 308) Blood type (test code = A NEGATIVE 1314) Compatibility (test code Compatible = 6400) [facility] 12 [id number] 14:06:10 Test Item Value Reference Range Interpretation Comments Ventricular rate (test code = 253) Atrial rate (test code = 255) MO interval (test code = 266) QRSD interval (test code = 260) QT interval (test code = 264) QTC interval (test code = 265) P axis 1 (test code = 267) QRS axis 1 (test code = 268) T wave axis (test code = 270) EKG impression (test Normal sinus rhythm-Low code = 273) voltage QRS-Cannot rule out Anteroseptal infarct , age undetermined-Abnormal ECG-In automated comparison with ECG of 11-APR-2021 19:45,-Questionable change in QRS duration-Minimal criteria for Anteroseptal infarct are now present- [facility] [id number] 13:03:33 Test Item Value Reference Range Interpretation Comments POC glucose (test 90 mg/dL 65-99 Health Officer Cherrie Og code = 18942-9) Charles ID: [id number] [facility] HospitalType and [id number] 00:23:00 Test Item Value Reference Range Interpretation Comments ABO grouping (test code AB 03/31 04/20 07:59 Blood is = 883-9) available. [facility] Blood is available. 19:23 Jovita Suzie lil Rh type (test code = POS 64756-7) Antibody screen (gel) NEG (test code = 890-4) [facility] Hospital[facility] fresh frozen plasma, 1 [id number] 23:26:00 Test Item Value Reference Range Interpretation Comments Product name (test code = 25) Thawed Plasma Unit number (test code = [id number] 9774904) Product code (test code = 3092) [id number] Dispense status (test code = Transfused 24) Blood expiration date (test code = 302) Blood type code (test code = 308) Blood type (test code = 1314) AB POSITIVE Compatibility (test code = Not required 6400) [facility] HospitalABO and Rh [id number] 07:38:00 Test Item Value Reference Range Interpretation Comments ABO grouping (test code = 883-9) AB Rh type (test code = 77315-2) POS [facility] HospitalUrine [id number] 07:37:18 Test Item Value Reference Range Interpretation Comments Urine culture (test SEE COMMENT Bacteriu yola screen code = 5655569) negative. [facility] HospitalWOUND CULTURE + GRAM [id number] 10:21:00 Test Item Value Reference Range Interpretation Comments CULTURE (BEAKER) (test code No growth = 1095) GRAM STAIN RESULT (BEAKER) <1+ WBCs (test code = 1123) GRAM STAIN RESULT (BEAKER) No organisms seen (test code = 316866) TISSUE [id number] 16:38:00Surgical Pathology Report Case: [id number] Authorizing Provider: Harlan Cornelius, Collected: 05/28/2020 08:50 AM Ordering Location: [facility] Received: 05/28/2020 09:27 AM PERIOPERATIVE SERVICES Pathologist: Yaw Rothman MD Specimen: Plaque, Right Carotid Artery Plaque ARTERY, RIGHT CAROTID, ENDARTERECTOMY:CALCIFIC ATHEROSCLEROTIC PLAQUE Signing Pathologist Direct Phone Line: [phone] signed by Yaw Rothman MD on 06/01/2020 at 4:38 [id number]; [id number] stenosis, rightPlaqueReceived in formalin labeled with the patient's name, accession number and "right carotid artery plaque" is a 1.9 cm in length x 0.6 cm in diameter, lopez-yellow, tubular piece of focally calcified plaque. The specimen is entirely submitted in A1 following decalcification. PA/ewPerformedCALCIUM, [id number] 12:04:00 Test Item Value Reference Range Interpretation Comments CALCIUM IONIZED (BEAKER) (test 1.20 mmol/L 1.12-1.27 code = 698) PH, BLOOD (BEAKER) (test code = 7.37 1810) BASIC METABOLIC [id number] 06:59:00 Test Item Value Reference Range Interpretation Comments SODIUM (BEAKER) 138 meq/L 136-145 (test code = 381) POTASSIUM (BEAKER) 4.3 meq/L 3.5-5.1 (test code = 379) CHLORIDE (BEAKER) 106 meq/L 98-107 (test code = 382) CO2 (BEAKER) (test 23 meq/L 22-29 code = 355) BLOOD UREA NITROGEN 26 [...] S NOT APPLICABLE FOR DIALYSIS PATIEN TS. Health Officer ID - [id number] (HEMOGRAM ONLY)2020-05-29 06:37:00 Test Item Value Reference [...] WBC 0-0 (BEAKER) (test code = 413) POCT-GLUCOSE [id number] 06:11:00 Test Item Value Reference Range Interpretation Comments POC-GLUCOSE METER 112 mg/dL 70-110 H : TESTED A T [facility] 6720 (BEAKER) (test code [facility], = 1538) 95375: Health Officer/Techni marilee ID = [id number] for JORD AN, LACRYSTAL BASIC METABOLIC [id number] 18:23:00 Test Item Value Reference Range Interpretation [...] S NOT APPLICABLE FOR DIALYSIS PATIEN TS. Health Officer ID - FSECBC W/PLT COUNT & AUTO [id number] 13:23:00 Test Item Value Reference Range Interpretation [...] % 0-1 PERCENT (BEAKER) (test code = 6851)
[2022-01-19] MEDS ORDERED: ALBUTEROL 2.5 MG/3 ML NEB SOL ONE (13:58)
[2022-01-19] MEDS ORDERED: IPRATROPIUM BROM 0.5MG/2.5ML ONE (13:58)
[2022-01-19] MEDS ORDERED: ONDANSETRON 4 MG/2 ML VIAL ONE (13:59)
--- NOTE | 2022-01-19 14:03 | RAD REPORT ---
EXAM DESCRIPTION: RAD - Chest Single View - 01/19/2022 1:26 pm CLINICAL HISTORY: DYSPNEA COMPARISON: Two view chest January 13 TECHNIQUE: AP portable chest image was obtained 01/19/2022 1:26 pm . FINDINGS: Baseline fibrotic lung pattern again noted. Retrocardiac left base is hazy poorly visualiz ed left hemidiaphragm. Left pneumonia is suspected needs correlation with exam findings. No significa nt failure or volume overload. Right-sided double-lumen dialysis catheter in place. Heart and vasculature are normal. No measurable pleural effusion and no pneumothorax. No acute bony abnormality seen. No acute aortic findings suspec bassam. IMPRESSION: Suspected left base pneumonia.
[2022-01-19 14:15] LABS: Protime INR 1.69
[2022-01-19 14:30] LABS: Albumin 3.1 g/dL (3.4-5.0); Bilirubin Direct 0.2 mg/dL (0-0.2); Bilirubin Total 0.6 mg/dL (0.2-1.0); Magnesium 1.7 mg/dL (1.8-2.4); Potassium 3.7 mmol/L (3.5-5.1); Protein, Total 6.9 g/dL (6.4-8.2)
[2022-01-19 14:32] LABS: Troponin High Sensitivity 822.8 pg/mL (<58.9)
[2022-01-19 14:35] LABS: Absolute Lymphocytes (CBC) 1.7 K/uL (0.7-4.9); Hematocrit 29.1 % (36.0-45.0); Lymphocytes % 30.7 % (15.3-44.8); MPV 10.4 fL (7.6-11.3); RBC Red Blood Cell Count 2.53 M/uL (3.86-4.86)
[2022-01-19 14:40] LABS: Blood Morphology Comment NOTED (NOT SEEN); Macrocytosis 2+; Platelet Estimate DECR; White Blood Cell Scan OK (OK)
--- NOTE | 2022-01-19 15:53 | ER ---
Nurse's Notes [facility] Name: Toña Jimenez Age: 76 yrs Sex: Female : 1945 Arrival Date: 01/19/2022 Time: 12:09 Bed 12 Private MD: Deonte Castaneda Diagnosis: Other pneumonia, unspecified organism Presentation: 01/19 12:21 Chief complaint: Patient states: Pt states was dx with Pneumonia a week ago with vg1 difficulty breathing and SOB that has become worse. Also stated that DR Gaston was suppose to come call the ED provider. Coronavirus screen: Vaccine status: Patient reports receiving the 2nd dose of the covid vaccine. Client denies travel out of the [place] in the last 14 days. Ebola Screen: Patient denies exposure to infectious person. Patient denies travel to an Ebola-affected area in the 21 days before illness onset. Initial Sepsis Screen: Does the patient meet any 2 criteria? No. Patient's initial sepsis screen is negative. Does the patient have a suspected source of infection? No. Patient's initial sepsis screen is negative. Risk Assessment: Do you want to hurt yourself or someone else? Patient reports no desire to harm self or others. Onset of symptoms was January 12, 2022. 12:21 Method Of Arrival: Wheelchair vg1 12:21 Acuity: JEAN 3 vg1 Triage Assessment: 12:25 General: Appears in no apparent distress. uncomfortable, Behavior is calm, cooperative. vg1 Pain: Complains of pain in back Pain currently is 5 out of 10 on a pain scale. Respiratory: Reports shortness of breath at rest on exertion cough that is productive, Onset: The symptoms/episode began/occurred x 1 week, the patient has moderate shortness of breath. Historical: - Allergies: 12:25 All narcotics - "Give's me a rash"; vg1 - PMHx: 12:25 BREAST CA; Carotid Endarterectomy; Dialysis- M/W/F; End stage renal disease; vg1 Hypercholesterolemia; Hypertensive disorder; - PSHx: 12:25 Appendectomy; Mastoidectomy; Multiple GI sx; renal stents; Stent in abdominal aorta, vg1 iliacs; Total abdominal hysterectomy; - Immunization history:: Client reports receiving the 2nd dose of the Covid vaccine. - Social history:: Smoking status: Patient/guardian denies using tobacco, the patient reports quitting approximately 20 years ago. Screenin:20 Abuse screen: Denies threats or abuse. Denies injuries from another. Nutritional ss screening: No deficits noted. Tuberculosis screening: Never had TB. Fall Risk None identified. Assessment: 13:55 General: Appears in no apparent distress. comfortable, Behavior is calm, cooperative, ss Pt is talking, laughing and joking with ED staff. Pain: Denies pain. Neuro: Rutledge Agitation-Sedation Scale (RASS): 0 - Alert and Calm Level of Consciousness is awake, alert, obeys commands, Oriented to person, place, time, situation. Cardiovascular: Rhythm is regular. Respiratory: Reports cough that is Pt states, "I cough so hard sometimes it makes me gag" Airway is patent Respiratory effort is even, unlabored, Respiratory pattern is regular, symmetrical. GI: Patient currently denies diarrhea. : No signs and/or symptoms were reported regarding the genitourinary system. Denies burning with urination, urinary frequency. EENT: Nares are clear Oral mucosa is moist. Throat is clear. Derm: Skin is intact, is healthy with good turgor, Skin is dry, Skin is pink, warm \\T\\ dry. normal. Musculoskeletal: Circulation, motion, and sensation intact. Range of motion: intact in all extremities, Swelling absent. 15:20 Reassessment: Pt states that she has not had any Vancomycin recently. Verified with ss DWAINE Kay as to why we need Vanc PEAK and TROUGH. DWAINE Kay states that the dialysis clinic stated that they had given her a dose of vancomycin yesterday. Pt has no S/S of UTI. 15:37 Reassessment: Pt does not understand why she needs to give a urine sample or why she is ss getting ASA. DWAINE Felix notified that patient is upset and wants to speak with him. DWAINE Kay notified and states he will be in there shortly. 17:19 Reassessment: No changes from previously documented assessment. Patient and/or family ss updated on plan of care and expected duration. Pain level reassessed. Patient is alert, oriented x 3, equal unlabored respirations, skin warm/dry/pink. 17:22 Reassessment: Diet tray ordered. Awaiting room assignment. Pt has no complaints at this ss time. 18:05 Reassessment: Attempted to call report to 2nd floor. Nurse has not been assigned to ss that room at this time and will call back. Vital Signs: 12:21 BP 153 / 66; Pulse 83; Resp 24; Temp 98.2(O); Pulse Ox 95% on R/A; Weight 49.9 kg; vg1 Height 5 ft. 1 in. (154.94 cm); Pain 4/10; 12:21 Body Mass Index 20.78 (49.90 kg, 154.94 cm) vg1 ED Course: 12:09 Patient arrived in ED. mr 12:10 Deonte Castaneda DO is Private Physician. mr 12:25 Triage completed. vg1 12:25 Arm band placed on. vg1 13:28 XRAY Chest (1 view) In Process Unspecified. EDMS 13:34 Rahul Stockton PA is PHCP. cp 13:34 Joe Duff MD is Attending Physician. cp 13:59 Inserted saline lock: 22 gauge in right forearm, using aseptic technique. Blood ss collected. 14:21 EKG done, by ED staff, reviewed by Rahul ISIDRO. dh3 14:51 Shayna Underwood, WILLIAM is Primary Nurse. ss 15:20 Patient has correct armband on for positive identification. Bed in low position. Call ss light in reach. Side rails up X2. Adult w/ patient. Client placed on continuous cardiac and pulse oximetry monitoring. NIBP monitoring applied. Warm blanket given. Pillow given. 15:52 Joe Cannon MD is Hospitalizing Provider. cp 18:05 No provider procedures requiring assistance completed. Patient admitted, IV remains in ss place. Administered Medications: 13:59 Drug: Albuterol - atroVENT (ipratropium) (3:1) (2.5 mg - 0.5 mg) 3 ml Route: Nebulizer; vg1 16:37 Follow up: Response: No adverse reaction; Marked relief of symptoms ss 13:59 Not Given (Patient Refused): Zofran (Ondansetron) 4 mg IVP once; over 2 minutes vg1 15:07 CANCELLED (Physician Discretion): Magnesium 400 mg PO once cp 16:03 Drug: Zosyn (piperacillin-tazobactam) 2.25 grams Route: IVPB; Infused Over: 60 mins; Site: right forearm; 16:56 Follow up: IV Status: Completed infusion 16:04 Drug: Aspirin Chewable Tablet 324 mg Route: PO; 16:37 Follow up: Response: No adverse reaction Medication: 15:20 VIS not applicable for this client. Outcome: 15:52 Decision to Hospitalize by Provider. cp 18:05 Instructed on the need for admit. 18:45 Admitted to Med/surg accompanied by tech, family with patient, via wheelchair, room ss 213, with chart, Report called to WILLIAM Mcguire 18:45 Condition: good 18:45 Patient left the ED. Signatures: Dispatcher [employer] Rafaela Bedoya mr Shayna Underwood, RN RN Rahul Stockton, DWAINE PA Marilia Camargo 3 Char Medley RN RN vg1
--- NOTE | 2022-01-19 15:53 | EDPHYS ---
Physician Documentation [facility] Name: Toña Jimenez Age: 76 yrs Sex: Female : 1945 Arrival Date: 01/19/2022 Time: 12:09 Bed 12 Private MD: Deonte Castaneda ED Physician Joe Duff HPI: 01/19 13:45 This 76 yrs old Female presents to ER via Wheelchair with complaints of cp Pneumonia, Breathing Difficulty. 13:45 The patient or guardian reports cough, that is intermittent, shortness of breath. cp 13:45 Onset: The symptoms/episode began/occurred 1 week(s) ago. Associated signs and cp symptoms: Pertinent negatives: chest pain, diarrhea, fever, vomiting. Severity of symptoms: in the emergency department the symptoms are unchanged despite home interventions. 13:45 Patient reports she was referred to ED by DR Gaston for worsening symptoms. Received IV cp and injection of antibiotics at dialysis yesterday. Denies recent fever. Historical: - Allergies: 12:25 All narcotics - "Give's me a rash"; vg1 - PMHx: 12:25 BREAST CA; Carotid Endarterectomy; Dialysis- M/W/F; End stage renal disease; vg1 Hypercholesterolemia; Hypertensive disorder; - PSHx: 12:25 Appendectomy; Mastoidectomy; Multiple GI sx; renal stents; Stent in abdominal aorta, vg1 iliacs; Total abdominal hysterectomy; - Immunization history:: Client reports receiving the 2nd dose of the Covid vaccine. - Social history:: Smoking status: Patient/guardian denies using tobacco, the patient reports quitting approximately 20 years ago. ROS: 13:50 Constitutional: Negative for body aches, chills, fever, poor PO intake. cp 13:50 Eyes: Negative for injury, pain, redness, and discharge. cp 13:50 Neck: Negative for pain with movement, pain at rest, stiffness. 13:50 Cardiovascular: Negative for chest pain, edema, palpitations. 13:50 Respiratory: Positive for cough, "sounds productive", shortness of breath. 13:50 Abdomen/GI: Negative for abdominal pain, vomiting, diarrhea, constipation. 13:50 Back: Negative for pain at rest, pain with movement. 13:50 MS/extremity: Negative for paresthesias. 13:50 Skin: Negative for rash. 13:50 Neuro: Negative for altered mental status, dizziness, headache. 13:50 All other systems are negative. Exam: 13:55 Constitutional: The patient appears alert, awake, non-diaphoretic, non-toxic, well cp developed, well nourished, in obvious distress, mildly distressed. 13:55 Head/Face: Normocephalic, atraumatic. cp 13:55 Eyes: Periorbital structures: appear normal, Conjunctiva: normal, no exudate, no injection, Sclera: no appreciated abnormality, Lids and lashes: appear normal, bilaterally. 13:55 ENT: External ear(s): are unremarkable, Nose: is normal, Mouth: Lips: moist, Oral mucosa: pink and intact, moist, Posterior pharynx: Airway: no evidence of obstruction, patent. 13:55 Neck: ROM/movement: is normal, is supple, without pain, no range of motions limitations. 13:55 Chest/axilla: Inspection: normal, Palpation: is normal, no crepitus, no tenderness. 13:55 Cardiovascular: Rate: normal, Rhythm: regular, Edema: is not appreciated, JVD: is not appreciated. 13:55 Respiratory: mild respiratory distress is noted, Respirations: labored breathing, that is mild, Breath sounds: decreased breath sounds, that are mild, diffuse, stridor, is not appreciated. 13:55 Abdomen/GI: Inspection: abdomen appears normal, Bowel sounds: active, all quadrants, Palpation: abdomen is soft and non-tender, in all quadrants. 13:55 Back: CVA tenderness, is absent. 13:55 Skin: cellulitis, is not appreciated, no rash present. 13:55 Neuro: Orientation: is normal, Mentation: is normal, Motor: moves all fours, strength is normal, Sensation: is normal. 14:22 ECG was reviewed by the Attending Physician. cp Vital Signs: 12:21 BP 153 / 66; Pulse 83; Resp 24; Temp 98.2(O); Pulse Ox 95% on R/A; Weight 49.9 kg; vg1 Height 5 ft. 1 in. (154.94 cm); Pain 4/10; 12:21 Body Mass Index 20.78 (49.90 kg, 154.94 cm) vg1 MDM: 13:42 Patient medically screened. 14:00 Differential diagnosis: bronchitis, flu, sepsis, CHF. cp 15:00 Data reviewed: vital signs, nurses notes, lab test result(s), EKG, radiologic studies, cp plain films. 15:00 Test interpretation: by ED physician or midlevel provider: ECG, plain radiologic cp studies. 15:30 Physician consultation: Joe Cannon MD was contacted at 15:30, regarding admission, cp to the telemetry unit. patient's condition. 01/19 13:44 Order name: Basic Metabolic Panel; Complete Time: 14:43 01/19 14:43 Interpretation: Normal except: CL 108; CRE 2.58; GFR 18; CA 8.2. cp 01/19 13:44 Order name: CBC with Diff; Complete Time: 14:43 01/19 14:44 Interpretation: Normal except: RBC 2.53; HGB 9.8; HCT 29.1; MCV 115.1; MCH 38.6; PLT cp 69; RDW 15.4. 01/19 13:44 Order name: LFT's; Complete Time: 14:43 01/19 14:44 Interpretation: Normal except: ALB 3.1; GLOB 3.8; A/G 0.8. 01/19 13:44 Order name: Magnesium; Complete Time: 14:43 01/19 15:07 Interpretation: Normal except: MG 1.7. 01/19 13:44 Order name: NT PRO-BNP; Complete Time: 14:43 01/19 14:44 Interpretation: Abnormal: NT PRO-BNP 68072. 01/19 13:44 Order name: PT-INR; Complete Time: 14:43 01/19 13:44 Order name: Troponin HS; Complete Time: 14:43 01/19 14:44 Interpretation: Abnormal: Troponin HS 822.8. 01/19 13:44 Order name: Procalcitonin; Complete Time: 14:43 01/19 13:44 Order name: Lactate; Complete Time: 14:43 01/19 13:44 Order name: Blood Culture Adult (2) 01/19 14:01 Order name: Influenza Screen (a \\T\\ B); Complete Time: 17:41 01/19 14:04 Order name: Influenza Screen (A ; Complete Time: 17:41 EDMS 01/19 14:40 Order name: CBC Smear Scan; Complete Time: 14:43 EDMS 01/19 12:40 Order name: XRAY Chest (1 view); Complete Time: 14:43 ss 01/19 15:22 Order name: Urine Microscopic Only; Complete Time: 17:41 cp 01/19 15:23 Order name: Vancomycin,Trough; Complete Time: 17:41 cp 01/19 16:30 Order name: Urine Dipstick-Ancillary; Complete Time: 17:41 EDMS 01/19 17:48 Order name: CBC with Automated Diff EDMS 01/19 17:48 Order name: CBC with Automated Diff EDMS 01/19 17:48 Order name: Comprehensive Metabolic Panel EDMS 01/19 17:48 Order name: Comprehensive Metabolic Panel EDMS 01/19 17:48 Order name: Lipid Profile EDMS 01/19 17:48 Order name: Lipid Profile EDMS 01/19 17:48 Order name: Magnesium EDMS 01/19 17:48 Order name: Magnesium EDMS 01/19 17:48 Order name: NT PRO-BNP EDMS 01/19 17:48 Order name: NT PRO-BNP EDMS 01/19 13:44 Order name: EKG; Complete Time: 13:45 cp 01/19 13:44 Order name: Cardiac monitoring; Complete Time: 16:59 cp 01/19 13:44 Order name: EKG - Nurse/Tech; Complete Time: 14:21 cp 01/19 13:44 Order name: IV Saline Lock; Complete Time: 13:59 cp 01/19 13:44 Order name: Labs collected and sent; Complete Time: 13:59 cp 01/19 13:44 Order name: O2 Per Protocol; Complete Time: 13:59 cp 01/19 13:44 Order name: O2 Sat Monitoring; Complete Time: 13:59 cp 01/19 15:22 Order name: Cath; Complete Time: 16:58 cp 01/19 15:22 Order name: Urine Dipstick-Ancillary (obtain specimen); Complete Time: 16:58 cp 01/19 17:00 Order name: Diet Renal; Complete Time: 17:00 ss 01/19 17:48 Order name: CONS Physician Consult EDMS 01/19 17:48 Order name: CONS Physician Consult EDTX 01/19 17:48 Order name: Dietitian Consult EDTX 01/19 17:48 Order name: Renal EDMS EC: Rate is 83 beats/min. Rhythm is regular. IL interval is normal. QRS interval is normal. cp QT interval is prolonged. T waves are Inverted in leads I, aVL, V2, V3, V4, V5. Interpreted by me. Reviewed by me. Administered Medications: 13:59 Drug: Albuterol - atroVENT (ipratropium) (3:1) (2.5 mg - 0.5 mg) 3 ml Route: Nebulizer; vg1 16:37 Follow up: Response: No adverse reaction; Marked relief of symptoms ss 13:59 Not Given (Patient Refused): Zofran (Ondansetron) 4 mg IVP once; over 2 minutes vg1 15:07 CANCELLED (Physician Discretion): Magnesium 400 mg PO once cp 16:03 Drug: Zosyn (piperacillin-tazobactam) 2.25 grams Route: IVPB; Infused Over: 60 mins; ss Site: right forearm; 16:56 Follow up: IV Status: Completed infusion ss 16:04 Drug: Aspirin Chewable Tablet 324 mg Route: PO; ss 16:37 Follow up: Response: No adverse reaction ss Disposition Summary: 01/19/22 15:52 Hospitalization Ordered Hospitalization Status: Inpatient Admission cp Provider: Joe Cannon cp [facility] cp Condition: Stable cp Problem: an ongoing problem cp Symptoms: have improved cp Bed/Room Type: Standard Room Assignment: 213(01/19/22 17:59) Diagnosis - Other pneumonia, unspecified organism cp Forms: - Medication Reconciliation Form cp - SBAR form cp Addendum: 02/14/2022 14:50 Co-signature as Attending Physician, Joe Duff MD I agree with the assessment m a2 and plan of care. Signatures: Dispatcher [employer] EDTX Maile Wiseman RN RN dw Smirch, Shelby, RN RN Rahul Stockton PA PA cp Joe Duff MD MD ma2 Char Medley RN RN vg1 Corrections: (The following items were deleted from the chart) 01/19 15:07 15:07 Magnesium 400 mg PO once ordered. cp cp 15:39 15:24 VANCOMYCIN, PEAK+C.LAB.BRZ ordered. EDMS EDMS 17:59 15:52 cp 01/20 18:12 01/19 13:45 Patient reports she was referred to ED by DR Gaston for worsening symptoms. cp Received IV and injection of antibiotics at dialysis today. Denies recent fever. cp
[2022-01-19] MEDS ORDERED: ASPIRIN 81 MG CHEWABLE TABLET ONE (15:57)
[2022-01-19] MEDS ORDERED: NA CHLORIDE 0.9% 100 ML IV ONE (15:57)
[2022-01-19] MEDS ORDERED: PIPERACIL/TAZO 2.25 GM VIAL IV ONE (15:57)
[2022-01-19 16:29] LABS: Urine Blood Negative (Negative); Urine Glucose Negative (Negative); Urine Protein 2+ (Negative); Urine pH 5.5 (5.0-7.0)
[2022-01-19 16:41] LABS: Urine Bacteria <20 /HPF (<20); Urine RBC <5 /HPF (NONE SEEN)
[2022-01-19] MEDS ORDERED: ALBUTEROL 2.5 MG/3 ML NEB SOL NEB PRN (17:44)
[2022-01-19] MEDS ORDERED: ACETAMINOPHEN 500 MG TAB PO PRN (17:44)
[2022-01-19] MEDS ORDERED: ONDANSETRON 4 MG/2 ML VIAL IV PRN (17:44)
[2022-01-19] MEDS ORDERED: VANCOMYCIN 1 GM in NA CHLORIDE 0.9% 250 ML IVPB SCH (18:00)
[2022-01-19 18:42] VITALS: BMI 20.7
[2022-01-19] MEDS ORDERED: VANCOMYCIN 1.25 GM in NA CHLORIDE 0.9% 250 ML IVPB SCH (20:00)
[2022-01-19] MEDS ORDERED: HEPARIN 5000 UNIT/ML 1 ML VIAL SQ SCH (21:00)
[2022-01-20] MEDS ORDERED: ALBUTEROL INHALER 60 PUFF/8 GM IH SCH (00:15)
[2022-01-20] MEDS: BENZONATATE 100 MG CAP PO PRN ×2 (01:56→09:34)
[2022-01-20] MEDS: GUAIFENESIN/CODEINE 5ML UCUP PO PRN ×3 (02:45→21:00)
[2022-01-20 04:16] LABS: Absolute Lymphocytes (CBC) 1.5 K/uL (0.7-4.9); Hematocrit 27.9 % (36.0-45.0); Lymphocytes % 28.8 % (15.3-44.8); MPV 8.6 fL (7.6-11.3); RBC Red Blood Cell Count 2.35 M/uL (3.86-4.86)
--- NOTE | 2022-01-20 04:37 | P.HP ---
Certification for Inpatient Patient admitted to: Inpatient With expected LOS: >2 Midnights Patient will require the following post-hospital care: None Practitioner: I am a practitioner with admitting privileges, knowledge of patient current condition, hospital course, and medical plan of care. Services: Services provided to patient in accordance with Admission requirements found in Title 42 Section 412.3 of the Code of Federal Regulations Patient History Date of Service: 01/19/22 Reason for admission: Pneumonia with questionable COPD History of Present Illness: Patient is a 76 year-old female who came to the hospital with shortness of breath. She has started feeling ill a few days ago at hemodialysis. She talked to her PCP and she went and saw her nurse practitioner who gave her an intramuscular injection of an antibiotic. She states that she felt good for about 24-48 hours but then she started feeling poorly again. She was seen at hemodialysis and sent to the hospital today. She was given IV vancomycin at dialysis on Thursday. Since she was feeling worse she was advised to go to the hospital where they started her on oral antibiotic therapy. She has a left basilar pneumonia. She also has a history of tobacco use but she quit almost 20 years ago. Prior to that she had a roughly 40 pack-year history of smoking. She will be admitted to the hospital and will consult Nephrology for hemodialysis. We will also consult Pulmonary for the pneumonia. Allergies No Known Allergies Allergy (Verified 05/08/20 11:39) Home Medications: Chondro Keating A/Vit C/Manganese [Chondroitin Sulf 400 mg Cap] 1 tab PO BID 05/08/20 Docosahexanoic AC/Epa [Fish Oil 1,000 MG CAP] 1,000 mg PO DAILY 05/08/20 Fenofibrate [Tricor] 160 mg PO DAILY 05/08/20 Folic Acid 2 tab PO BID 05/08/20 Garlic 1 each PO BID 05/08/20 Oxybutynin Chloride 5 mg PO BID 05/08/20 glucosamine HCL [Glucosamine HCl] 500 mg PO BID 05/08/20 Albuterol Inhaler [Ventolin Inhaler*] 2 puff IH PRN 01/19/22 Methoxy Peg-Epoetin Beta [Mircera] 100 mcg IV SEECOM 01/19/22 Nifedipine [Nifedipine ER] 60 mg PO BID 01/19/22 Ropinirole HCl 0.25 mg PO BEDTIME 01/19/22 Sevelamer Carbonate [Renvela] 800 mg PO PRN 01/19/22 - Past Medical/Surgical History Has patient received pneumonia vaccine in the past: Yes Diabetic: No -: breast cancer -: hypertension -: rheumatic fever -: PNA -: ruptured appendectomy -: TAHBSO -: bowel resection -: aortic stents -: iliac stents -: right renal artery stents -: double mastectomy -: A & P repair - Family History Father Medical History: Heart disease Mother Medical History: Heart disease - Social History Smoking Status: Former smoker Alcohol use: Yes CD- Drugs: No Caffeine use: No Place of Residence: Home Review of Systems 10-point ROS is otherwise unremarkable Physical Examination - Vital Signs Temperature: 97.9 F Blood Pressure: 128/69 Pulse: 76 Respirations: 17 Pulse Ox (%): 100 - Physical Exam General: Alert, In no apparent distress, Oriented x3 HEENT: Atraumatic, PERRLA, Mucous membr. moist/pink, EOMI, Sclerae nonicteric Neck: Supple, 2+ carotid pulse no bruit, No LAD, Without JVD or thyroid abnormality Respiratory: Diminished, Rhonchi/gurgles ( The left lung base) Cardiovascular: Regular rate/rhythm, Normal S1 S2, Systolic murmur Gastrointestinal: Normal bowel sounds, Soft and benign, Non-distended, No tenderness Musculoskeletal: No tenderness Integumentary: No rashes Neurological: Normal gait, Normal speech, Normal tone, Normal affect, Abnormal strength Lymphatics: No axilla or inguinal lymphadenopathy - Studies Laboratory Data (last 24 hrs) 01/19/22 13:59: PT 18.8 H, INR 1.69 01/19/22 13:59: WBC 5.7, Hgb 9.8 L, Hct 29.1 L, Plt Count 69 L 01/19/22 13:59: Sodium 138, Potassium 3.7, BUN 12, Creatinine 2.58 H, Glucose 84, Magnesium 1.7 L, Total Bilirubin 0.6, AST 37, ALT 17, Alkaline Phosphatase 60 Microbiology Data (last 24 hrs): 01/19/22 14:54 Nasopharnyx Influenza Type A Antigen Screen - Final 01/19/22 14:54 Nasopharnyx Influenza Type B Antigen Screen - Final Assessment & Plan - Problems (Diagnosis) (1) Pneumonia Current Visit: Yes Status: Acute (2) ESRD (end stage renal disease) Current Visit: Yes Status: Acute (3) History of tobacco use Current Visit: Yes Status: Acute (4) History of hypertension Current Visit: Yes Status: Acute (5) History of breast cancer Current Visit: Yes Status: Acute - Plan 1. Continue with IV antibiotics 2. Awaiting sputum and blood culture 3. Repeat chest x-ray 4. Will proceed with CT scan of the chest if pneumonia is not improved to evaluate for postobstructive pneumonia 5. Respiratory isolation is not needed 6. Continue with nebs as needed 7. O2 per protocol 8. Heplock IV as patient on HD; nephrology has been consulted 9. Repeat labs including CBC and renal function in a.m. 10. GI and DVT prophylaxis Discharge Plan: Home Plan to discharge in: Greater than 2 days - Advance Directives Does patient have a Living Will: No Does patient have a Durable POA for Healthcare: No - Code Status/Comfort Care Code Status Assessed: Yes Code Status: Full Code Critical Care: No Time Spent Managing PTS Care (In Minutes): 45
[2022-01-20] MEDS: NIFEDIPINE XL 60 MG TABLET PO SCH ×2 (04:58→21:05)
[2022-01-20 05:04] LABS: Albumin 2.8 g/dL (3.4-5.0); Bilirubin Total 0.4 mg/dL (0.2-1.0); Magnesium 1.7 mg/dL (1.8-2.4); Potassium 4.2 mmol/L (3.5-5.1); Protein, Total 6.3 g/dL (6.4-8.2)
[2022-01-20] MEDS ORDERED: VANCOMYCIN 1.25 GM in NA CHLORIDE 0.9% 250 ML IVPB ONE (08:00)
[2022-01-20] MEDS: CHONDROITIN PO SCH ×2 (09:00→21:00)
[2022-01-20] MEDS ORDERED: [UNRECOGNIZED DRUG - OTHER] IV SCH (09:00)
[2022-01-20] MEDS: GARLIC PO SCH ×2 (09:00→21:00)
[2022-01-20] MEDS ORDERED: AZITHROMYCIN IV 500 MG in NA CHLORIDE 0.9% 250 ML IVPB SCH (09:00)
[2022-01-20] MEDS ORDERED: GLUCOSAMINE HCL 500 MG PO SCH (09:00)
[2022-01-20] MEDS ORDERED: FOLIC ACID 1 MG TABLET PO ONE (09:00)
[2022-01-20] MEDS ORDERED: VANCOMYCIN 1 GM in NA CHLORIDE 0.9% 250 ML IVPB SCH (09:00)
[2022-01-20] MEDS: SEVELAMER CARBONATE 800 MG TABLET PO SCH ×2 (09:34→16:36)
[2022-01-20] MEDS: DOCOSAHEXANOIC AC/EPA 1000 MG PO SCH (09:40)
[2022-01-20] MEDS: FENOFIBRATE 160 MG TAB PO SCH (09:40)
[2022-01-20] MEDS: OXYBUTYNIN CHLORIDE 5 MG TAB PO SCH ×2 (09:40→21:03)
--- NOTE | 2022-01-20 09:55 | P.CNS ---
Date of Consult: 01/20/22 Reason for Consult: ESRD Requesting Physician: Joe Cannon Chief Complaint: Pneumonia with questionable COPD History of Present Illness: Patient is a 76 year-old female who came to the hospital with shortness of breath. She has started feeling ill a few days ago at hemodialysis. She talked to her PCP and she went and saw her nurse practitioner who gave her an intramuscular injection of an antibiotic. She states that she felt good for about 24-48 hours but then she started feeling poorly again. She was seen at hemodialysis and sent to the hospital today. She was given IV vancomycin at dialysis on Thursday. Since she was feeling worse she was advised to go to the hospital where they started her on oral antibiotic therapy. She has a left basilar pneumonia. She also has a history of tobacco use but she quit almost 20 years ago. Prior to that she had a roughly 40 pack-year history of smoking. She will be admitted to the hospital and will consult Nephrology for hemodialysis. We will also consult Pulmonary for the pneumonia. Allergies No Known Allergies Allergy (Verified 05/08/20 11:39) Home medications list reviewed: Yes Home Medications: Chondro [place] A/Vit C/Manganese [Chondroitin Sulf 400 mg Cap] 1 tab PO BID 05/08/20 Docosahexanoic AC/Epa [Fish Oil 1,000 MG CAP] 1,000 mg PO DAILY 05/08/20 Fenofibrate [Tricor] 160 mg PO DAILY 05/08/20 Folic Acid 2 tab PO BID 05/08/20 Garlic 1 each PO BID 05/08/20 Oxybutynin Chloride 5 mg PO BID 05/08/20 glucosamine HCL [Glucosamine HCl] 500 mg PO BID 05/08/20 Albuterol Inhaler [Ventolin Inhaler*] 2 puff IH PRN 01/19/22 Methoxy Peg-Epoetin Beta [Mircera] 100 mcg IV SEECOM 01/19/22 Nifedipine [Nifedipine ER] 60 mg PO BID 01/19/22 Ropinirole HCl 0.25 mg PO BEDTIME 01/19/22 Sevelamer Carbonate [Renvela] 800 mg PO PRN 01/19/22 - Past Medical/Surgical History Diabetic: No -: breast cancer -: hypertension -: rheumatic fever -: PNA -: ruptured appendectomy -: TAHBSO -: bowel resection -: aortic stents -: iliac stents -: right renal artery stents -: double mastectomy -: A & P repair - Family History Father Medical History: Heart disease Mother Medical History: Heart disease - Social History Alcohol use: Yes CD- Drugs: No Caffeine use: No Place of Residence: Home Review of Systems 10-point ROS is otherwise unremarkable General: Weakness, Malaise Respiratory: Cough, SOB with Excertion Physical Examination Temp Pulse Resp BP Pulse Ox 99.2 F 82 20 195/88 H 100 01/20/22 08:00 01/20/22 08:00 01/20/22 08:00 01/20/22 08:00 01/20/22 08:00 General: In no apparent distress, Cooperative HEENT: Atraumatic Neck: Supple Respiratory: Expiratory wheezes Cardiovascular: No edema, Regular rate/rhythm Gastrointestinal: Soft and benign, Non-distended Musculoskeletal: No clubbing, No contractures Integumentary: No rashes, No cyanosis Neurological: Normal speech Laboratory Data (last 24 hrs) 01/19/22 13:59: PT 18.8 H, INR 1.69 01/19/22 13:59: WBC 5.7, Hgb 9.8 L, Hct 29.1 L, Plt Count 69 L 01/19/22 13:59: Sodium 138, Potassium 3.7, BUN 12, Creatinine 2.58 H, Glucose 84, Magnesium 1.7 L, Total Bilirubin 0.6, AST 37, ALT 17, Alkaline Phosphatase 60 Imagings Data: EXAM DESCRIPTION: RAD - Chest Single View - 01/19/2022 1:26 pm CLINICAL HISTORY: DYSPNEA COMPARISON: Two view chest January 13 TECHNIQUE: AP portable chest image was obtained 01/19/2022 1:26 pm . FINDINGS: Baseline fibrotic lung pattern again noted. Retrocardiac left base is hazy poorly visualized left hemidiaphragm. Left pneumonia is suspected needs correlation with exam findings. No significant failure or volume overload. Right-sided double-lumen dialysis catheter in place. Heart and vasculature are normal. No measurable pleural effusion and no pneumothorax. No acute bony abnormality seen. No acute aortic findings suspected. IMPRESSION: Suspected left base pneumonia. Conclusions/Impression: ESRD Proteinuria -HD TIW Hypomagnesemia -Replete prn HTN with CKD/ CHF -Continue Nifedipine Diastolic CHF, A/C Acute respiratory failure suspicious for COPD exacerbation Left base PNA -Continue IV Abx -HD with UF Moderate malnutrition -Start Nepro Anemia in CKD Thrombocytopenia -Retacrit TIW CKD MBD -Start Vitamin D Thank you kindly for the consultation.
--- NOTE | 2022-01-20 11:25 | EKG ---
Test Date: 2022-01-19 Test Time: 14:15:40 Lead Auditor: JUAN MEASUREMENT RESULTS: Intervals: Rate: 83 TX: 158 QRSD: 88 QT: 464 QTc: 545 Chambers: P: 52 TX: 158 QRS: -8 T: 117 INTERPRETIVE STATEMENTS: Normal sinus rhythm Minimal voltage criteria for LVH, may be normal variant Septal infarct, age undetermined Marked T wave abnormality, consider anterolateral ischemia Prolonged QT Abnormal ECG Compared to ECG 06/02/2021 22:13:50 Left ventricular hypertrophy now present T-wave abnormality now present Possible ischemia now present Prolonged QT interval now present Myocardial infarct finding still present Electronically Signed On 01-20-22 11:23:26 CDT by Vicente Clemens
[2022-01-20] MEDS: CEFTRIAXONE 1,000 MG in NA CHLORIDE 0.9% 50 ML IVPB SCH (13:57)
--- NOTE | 2022-01-20 14:20 | P.PN ---
Subjective Date of Service: 01/20/22 Chief Complaint: Pneumonia with questionable COPD Subjective: No new changes (Worried about not getting antibiotics every 4 hours States she is still very short of breath although stable on supplemental 2 L O2) Physical Examination - Vital Signs Temperature: 98.7 F Blood Pressure: 163/68 Pulse: 82 Respirations: 20 Pulse Ox (%): 100 - Studies Laboratory Data (last 24 hrs) 01/19/22 13:59: WBC 5.7, Hgb 9.8 L, Hct 29.1 L, Plt Count 69 L 01/19/22 13:59: Sodium 138, Potassium 3.7, BUN 12, Creatinine 2.58 H, Glucose 84, Magnesium 1.7 L, Total Bilirubin 0.6, AST 37, ALT 17, Alkaline Phosphatase 60 Microbiology Data (last 24 hrs): 01/19/22 14:54 Nasopharnyx Influenza Type A Antigen Screen - Final 01/19/22 14:54 Nasopharnyx Influenza Type B Antigen Screen - Final Assessment And Plan Physician Review: Patient Assessed, Agree with Above Assessment and Plan Physician Review Additional Text: 01/20/22 14:17 - Physical Exam General: Alert, In no apparent distress, Oriented x3 HEENT: Atraumatic, PERRLA, Mucous membr. moist/pink, EOMI, Sclerae nonicteric Neck: Supple, 2+ carotid pulse no bruit, No LAD, Without JVD or thyroid abnormality Respiratory: Diminished, Rhonchi/gurgles ( The left lung base) Cardiovascular: Regular rate/rhythm, Normal S1 S2, Systolic murmur Gastrointestinal: Normal bowel sounds, Soft and benign, Non-distended, No tenderness Musculoskeletal: No tenderness Integumentary: No rashes Neurological: Normal gait, Normal speech, Normal tone, Normal affect, Abnormal strength Lymphatics: No axilla or inguinal lymphadenopathy - Studies Laboratory Data (last 24 hrs) 01/19/22 13:59: PT 18.8 H, INR 1.69 01/19/22 13:59: WBC 5.7, Hgb 9.8 L, Hct 29.1 L, Plt Count 69 L 01/19/22 13:59: Sodium 138, Potassium 3.7, BUN 12, Creatinine 2.58 H, Glucose 84, Magnesium 1.7 L, Total Bilirubin 0.6, AST 37, ALT 17, Alkaline Phosphatase 60 Microbiology Data (last 24 hrs): 01/19/22 14:54 Nasopharnyx Influenza Type A Antigen Screen - Final 01/19/22 14:54 Nasopharnyx Influenza Type B Antigen Screen - Final Assessment & Plan - Problems (Diagnosis) (1) Pneumonia Current Visit: Yes Status: Acute (2) ESRD (end stage renal disease) Current Visit: Yes Status: Acute (3) History of tobacco use Current Visit: Yes Status: Acute (4) History of hypertension Current Visit: Yes Status: Acute (5) History of breast cancer Current Visit: Yes Status: Acute - Plan 1. Continue with IV antibioticsadd Rocephin to Zithromax DC vancomycin since left base pneumonia - proceed with CT scan of the chest if pneumonia is not improved to evaluate for postobstructive pneumonia No leukocytosis noted, blood culture negative till date - Continue with nebs as needed - O2 per protocol Continue hemodialysis in a.m. nephrology has been consulted Continue GI and DVT prophylaxis Discharge Plan: Home Plan to discharge in: Greater than 2 days - Advance Directives Does patient have a Living Will: No Does patient have a Durable POA for Healthcare: No - Code Status/Comfort Care Code Status Assessed: Yes 01/20/22 14:17 01/20/22 14:19
[2022-01-20] MEDS: OSELTAMIVIR 30 MG CAP PO SCH (14:46)
[2022-01-20] MEDS ORDERED: MANNITOL 25% 12.5 GM/50 ML VIAL IV PRN (19:37)
[2022-01-20] MEDS ORDERED: NA CHLORIDE 0.9% 1,000 ML IV PRN (19:37)
[2022-01-20] MEDS: EPOETIN ALFA 10,000 UNIT/ML VIAL SQ SCH (20:00)
[2022-01-20] MEDS ORDERED: ALBUMIN HUMAN 25% 50 ML IV SCH (20:00)
[2022-01-20] MEDS: DOCUSATE NA 100 MG CAP PO SCH (21:00)
[2022-01-20] MEDS: ROPINIROLE HCL 0.25 MG TAB PO SCH (21:01)
[2022-01-20] MEDS: FOLIC ACID 1 MG TABLET PO SCH (21:03)
[2022-01-20] MEDS: NEPRO SHAKE 237 ML CAN PO SCH (21:04)
[2022-01-20] MEDS: IPRATROPIUM BROM 0.5MG/2.5ML NEB PRN (21:45)
[2022-01-20] MEDS: ALBUTEROL 2.5 MG/3 ML NEB SOL NEB PRN (21:45)
[2022-01-21] MEDS: GUAIFENESIN/CODEINE 5ML UCUP PO PRN ×3 (03:53→20:28)
[2022-01-21] MEDS: CHONDROITIN PO SCH ×2 (09:00→21:00)
[2022-01-21] MEDS: DOCUSATE NA 100 MG CAP PO SCH ×2 (09:00→20:26)
[2022-01-21] MEDS: CALCITROL 0.25 MCG CAP PO SCH (09:00)
[2022-01-21] MEDS: NEPRO SHAKE 237 ML CAN PO SCH ×3 (09:00→20:27)
[2022-01-21] MEDS ORDERED: VANCOMYCIN 1 GM in NA CHLORIDE 0.9% 250 ML IVPB SCH (09:00)
[2022-01-21] MEDS: GARLIC PO SCH ×2 (09:00→20:27)
[2022-01-21] MEDS: SEVELAMER CARBONATE 800 MG TABLET PO SCH ×2 (11:39→17:53)
[2022-01-21] MEDS: VITAMIN D 5,000 UNIT CAP PO SCH (11:42)
[2022-01-21] MEDS: FOLIC ACID 1 MG TABLET PO SCH ×2 (11:43→20:27)
[2022-01-21] MEDS: CEFTRIAXONE 1,000 MG in NA CHLORIDE 0.9% 50 ML IVPB SCH (11:44)
[2022-01-21] MEDS: NIFEDIPINE XL 60 MG TABLET PO SCH ×2 (11:45→20:28)
[2022-01-21] MEDS: FENOFIBRATE 160 MG TAB PO SCH (11:52)
[2022-01-21] MEDS: DOCOSAHEXANOIC AC/EPA 1000 MG PO SCH (11:53)
[2022-01-21] MEDS: OXYBUTYNIN CHLORIDE 5 MG TAB PO SCH ×2 (11:53→20:27)
--- NOTE | 2022-01-21 13:22 | P.PN ---
Subjective Date of Service: 01/21/22 Chief Complaint: Pneumonia with questionable COPD Subjective: No new changes, Improving Physical Examination - Vital Signs Temperature: 98.3 F Blood Pressure: 133/65 Pulse: 80 Respirations: 20 Pulse Ox (%): 100 Assessment And Plan Physician Review: Patient Assessed, Agree with Above Assessment and Plan Physician Review Additional Text: 01/20/22 14:17 - Physical Exam General: Alert, In no apparent distress, Oriented x3 HEENT: Atraumatic, PERRLA, Mucous membr. moist/pink, EOMI, Sclerae nonicteric Neck: Supple, 2+ carotid pulse no bruit, No LAD, Without JVD or thyroid abnormality Respiratory: Diminished, Rhonchi/gurgles ( The left lung base) Cardiovascular: Regular rate/rhythm, Normal S1 S2, Systolic murmur Gastrointestinal: Normal bowel sounds, Soft and benign, Non-distended, No tenderness Musculoskeletal: No tenderness Integumentary: No rashes Neurological: Normal gait, Normal speech, Normal tone, Normal affect, Abnormal strength Lymphatics: No axilla or inguinal lymphadenopathy - Studies Laboratory Data (last 24 hrs) 01/19/22 13:59: PT 18.8 H, INR 1.69 01/19/22 13:59: WBC 5.7, Hgb 9.8 L, Hct 29.1 L, Plt Count 69 L 01/19/22 13:59: Sodium 138, Potassium 3.7, BUN 12, Creatinine 2.58 H, Glucose 84, Magnesium 1.7 L, Total Bilirubin 0.6, AST 37, ALT 17, Alkaline Phosphatase 60 Microbiology Data (last 24 hrs): 01/19/22 14:54 Nasopharnyx Influenza Type A Antigen Screen - Final 01/19/22 14:54 Nasopharnyx Influenza Type B Antigen Screen - Final Assessment & Plan Influenza A Pneumonia - Problems (Diagnosis) (1) Pneumonia Current Visit: Yes Status: Acute (2) ESRD (end stage renal disease) Current Visit: Yes Status: Acute (3) History of tobacco use Current Visit: Yes Status: Acute (4) History of hypertension Current Visit: Yes Status: Acute (5) History of breast cancer Current Visit: Yes Status: Acute - Plan 1. Continue Tamiflu for influenza pneumonia Continue empiric antibiotics Wean O2 as toleratedstill requiring facemask oxygen Continue hemodialysis today Continue as needed nebs as tolerated - O2 per protocol Continue GI and DVT prophylaxis Discharge Plan: Home Plan to discharge in: Greater than 2 days - Advance Directives Does patient have a Living Will: No Does patient have a Durable POA for Healthcare: No 01/21/22 13:22
[2022-01-21] MEDS: ROPINIROLE HCL 0.25 MG TAB PO SCH (20:28)
--- NOTE | 2022-01-21 21:08 | P.PN ---
Date of Service: 01/21/22 Vital Signs Temp Pulse Resp BP Pulse Ox 99.2 F 97 H 20 148/60 H 98 01/21/22 20:00 01/21/22 20:28 01/21/22 20:00 01/21/22 20:28 01/21/22 20:00 Medications Acetaminophen (Acetaminophen 500 Mg Tab) 500 mg PO Q4HP PRN PRN Reason: PAIN/FEVER Albuterol Sulfate (Albuterol 2.5 Mg/3 Ml Neb Kisha) 2.5 mg NEB [id number] PRN PRN Reason: SHORTNESS OF BREATH Last Admin: 01/20/22 21:45 Dose: 2.5 mg Documented by: Benzonatate (Benzonatate 100 Mg Cap) 200 mg PO TID PRN PRN Reason: use 1st prn COUGH Last Admin: 01/20/22 09:34 Dose: 200 mg Documented by: Calcitriol (Calcitrol 0.25 Mcg Cap) 0.5 mcg PO DAILY [facility] Last Admin: 01/21/22 09:00 Dose: Not Given Documented by: Cholecalciferol (Vitamin D 5,000 Unit Cap) 5,000 unit PO DAILY [facility] Last Admin: 01/21/22 11:42 Dose: 5,000 unit Documented by: Docusate Sodium (Docusate Na 100 Mg Cap) 100 mg PO BID [facility] Last Admin: 01/21/22 20:26 Dose: Not Given Documented by: Enteral Nutritional Formula (Nepro Shake 237 Ml Can) 240 ml PO TID [facility] Last Admin: 01/21/22 20:27 Dose: 240 ml Documented by: Epoetin Salty (Epoetin Salty 10,000 Unit/Ml Vial) 10,000 unit SQ M,W,F [facility] Last Admin: 01/20/22 20:00 Dose: 10,000 unit Documented by: Fenofibrate (Fenofibrate 160 Mg Tab) 160 mg PO DAILY [facility] Last Admin: 01/21/22 11:52 Dose: 160 mg Documented by: Fish Oil (Docosahexanoic Ac/Epa 1000 Mg) 1,000 mg PO DAILY [facility] Last Admin: 01/21/22 11:53 Dose: 1,000 mg Documented by: Folic Acid (Folic Acid 1 Mg Tablet) 2 mg PO BID [facility] Last Admin: 01/21/22 20:27 Dose: 2 mg Documented by: Guaifenesin/Codeine Phosphate (Guaifenesin/Codeine 5ml Ucup) 5 ml PO QID PRN PRN Reason: use 2nd for COUGH Last Admin: 01/21/22 20:28 Dose: 5 ml Documented by: Heparin Sodium (Porcine) (Heparin 1,000 Unit/Ml Vial) 4,000 unit IV EVERY HD PRN PRN Reason: DIALYSIS CATHETER CARE Last Admin: 01/21/22 18:58 Dose: 4,000 unit Documented by: Home Med (Chondro Keating A/Vit C/Manganese [Chondroitin Sulf 400 Mg Cap]) 1 tab PO BID [facility] Last Admin: 01/21/22 09:00 Dose: Not Given Documented by: Home Med (Garlic [Garlic]) 1 each PO BID [facility] Last Admin: 01/21/22 20:27 Dose: Not Given Documented by: Home Med (Methoxy Peg-Epoetin Beta [Mircera]) 100 mcg IV SEECOM [facility] Ceftriaxone Sodium 1,000 mg/ (Sodium Chloride) 50 mls @ 100 mls/hr IVPB DAILY [facility] Last Admin: 01/21/22 11:44 Dose: 50 mls Documented by: Albumin Human (Albumin 25%) 50 mls @ 100 mls/hr IV EVERY HD [facility] Ipratropium [place] (Ipratropium Brom 0.5mg/2.5ml) 0.5 mg NEB [id number] PRN PRN Reason: SHORTNESS OF BREATH Last Admin: 01/20/22 21:45 Dose: 0.5 mg Documented by: Mannitol (Mannitol 25% 12.5 Gm/50 Ml Vial) 12.5 gm IV EVERY HD PRN PRN Reason: Titrate to SBP (MUST DEFINE) Nifedipine (Nifedipine Xl 60 Mg Tablet) 60 mg PO BID [facility] Last Admin: 01/21/22 20:28 Dose: 60 mg Documented by: Ondansetron HCl (Ondansetron 4 Mg/2 Ml Vial) 4 mg IV Q6HP PRN PRN Reason: NAUSEA / VOMITING Oseltamivir Phosphate (Oseltamivir 30 Mg Cap) 30 mg PO Q48H [facility] Stop: 01/24/22 13:01 Last Admin: 01/20/22 14:46 Dose: 30 mg Documented by: Oxybutynin Chloride (Oxybutynin Chloride 5 Mg Tab) 5 mg PO BID [facility] Last Admin: 01/21/22 20:27 Dose: 5 mg Documented by: Ropinirole HCl (Ropinirole Hcl 0.25 Mg Tab) 0.25 mg PO BEDTIME [facility] Last Admin: 01/21/22 20:28 Dose: 0.25 mg Documented by: Sevelamer Carbonate (Sevelamer Carbonate 800 Mg Tablet) 800 mg PO BIDWM [facility] Last Admin: 01/21/22 17:53 Dose: 800 mg Documented by: Sodium Chloride (Flush Normal Saline 10 Ml) 10 ml IV BID [facility] Last Admin: 01/21/22 20:28 Dose: 10 ml Documented by: Microbiology Results 01/19/22 14:16 Blood - Blood Aerobic Blood Culture - Preliminary No growth in 24 hours. 01/19/22 14:16 Blood - Blood Anaerobic Blood Culture - Preliminary No growth in 24 hours. 01/19/22 13:59 Blood - Blood Aerobic Blood Culture - Preliminary No growth in 24 hours. 01/19/22 13:59 Blood - Blood Anaerobic Blood Culture - Preliminary No growth in 24 hours. 01/19/22 14:54 Nasopharnyx Influenza Type A Antigen Screen - Final 01/19/22 14:54 Nasopharnyx Influenza Type B Antigen Screen - Final Assessment/ Plan: Nephrology Feeling better today No chest pain Coughing spell overnight requiring a breathing treatment Vitals, medications, blood work and imaging reviewed in the chart. General: In no apparent distress, Cooperative HEENT: Atraumatic Neck: Supple Respiratory: Expiratory wheezes Cardiovascular: No edema, Regular rate/rhythm Gastrointestinal: Soft and benign, Non-distended Musculoskeletal: No clubbing, No contractures Integumentary: No rashes, No cyanosis Neurological: Normal speech Laboratory Data (last 24 hrs) 01/19/22 13:59: PT 18.8 H, INR 1.69 01/19/22 13:59: WBC 5.7, Hgb 9.8 L, Hct 29.1 L, Plt Count 69 L 01/19/22 13:59: Sodium 138, Potassium 3.7, BUN 12, Creatinine 2.58 H, Glucose 84, Magnesium 1.7 L, Total Bilirubin 0.6, AST 37, ALT 17, Alkaline Phosphatase 60 Imagings Data: EXAM DESCRIPTION: RAD - Chest Single View - 01/19/2022 1:26 pm CLINICAL HISTORY: DYSPNEA COMPARISON: Two view chest January 13 TECHNIQUE: AP portable chest image was obtained 01/19/2022 1:26 pm . FINDINGS: Baseline fibrotic lung pattern again noted. Retrocardiac left base is hazy poorly visualized left hemidiaphragm. Left pneumonia is suspected needs correlation with exam findings. No significant failure or volume overload. Right-sided double-lumen dialysis catheter in place. Heart and vasculature are normal. No measurable pleural effusion and no pneumothorax. No acute bony abnormality seen. No acute aortic findings suspected. IMPRESSION: Suspected left base pneumonia. Conclusions/Impression: ESRD Proteinuria -HD TIW Hypomagnesemia -Replete prn HTN with CKD/ CHF -Continue Nifedipine Diastolic CHF, A/C Acute respiratory failure suspicious for COPD exacerbation Left base PNA -Continue IV Abx -HD with UF Moderate malnutrition -Continue Nepro Anemia in CKD Thrombocytopenia -Retacrit TIW CKD MBD -Continue Vitamin D Case reviewed with Dr. Nix
[2022-01-22] MEDS: GUAIFENESIN/CODEINE 5ML UCUP PO PRN ×3 (02:23→21:16)
[2022-01-22] MEDS: DOCUSATE NA 100 MG CAP PO SCH ×2 (09:00→20:58)
[2022-01-22] MEDS: NEPRO SHAKE 237 ML CAN PO SCH ×3 (09:00→20:59)
[2022-01-22] MEDS: CHONDROITIN PO SCH ×2 (09:00→20:37)
[2022-01-22] MEDS: CALCITROL 0.25 MCG CAP PO SCH (09:00)
[2022-01-22] MEDS: GARLIC PO SCH ×2 (09:00→20:37)
--- NOTE | 2022-01-22 09:45 | P.PN ---
Subjective Date of Service: 01/22/22 Chief Complaint: Pneumonia with questionable COPD Subjective: No new changes (Tolerated dialysis well yesterday Patient refusing to come off nonrebreather mask, thinking of this morning and O2 sat was normal on room air.) Physical Examination - Vital Signs Temperature: 97.2 F Blood Pressure: 115/53 Pulse: 75 Respirations: 19 Pulse Ox (%): 100 Assessment And Plan Physician Review: Patient Assessed, Agree with Above Assessment and Plan Physician Review Additional Text: 01/20/22 14:17 - Physical Exam General: Alert, In no apparent distress, Oriented x3 HEENT: Atraumatic, PERRLA, Mucous membr. moist/pink, EOMI, Sclerae nonicteric Neck: Supple, 2+ carotid pulse no bruit, No LAD, Without JVD or thyroid abnormality Respiratory: Diminished, Rhonchi/gurgles ( The left lung base) Cardiovascular: Regular rate/rhythm, Normal S1 S2, Systolic murmur Gastrointestinal: Normal bowel sounds, Soft and benign, Non-distended, No tenderness Musculoskeletal: No tenderness Integumentary: No rashes Neurological: Normal gait, Normal speech, Normal tone, Normal affect, Abnormal strength Lymphatics: No axilla or inguinal lymphadenopathy - Studies Laboratory Data (last 24 hrs) 01/19/22 13:59: PT 18.8 H, INR 1.69 01/19/22 13:59: WBC 5.7, Hgb 9.8 L, Hct 29.1 L, Plt Count 69 L 01/19/22 13:59: Sodium 138, Potassium 3.7, BUN 12, Creatinine 2.58 H, Glucose 84, Magnesium 1.7 L, Total Bilirubin 0.6, AST 37, ALT 17, Alkaline Phosphatase 60 Microbiology Data (last 24 hrs): 01/19/22 14:54 Nasopharnyx Influenza Type A Antigen Screen - positive 01/19/22 14:54 Nasopharnyx Influenza Type B Antigen Screen - Final Assessment & Plan Influenza A Pneumonia - Problems (Diagnosis) (1) Pneumonia Current Visit: Yes Status: Acute (2) ESRD (end stage renal disease) Current Visit: Yes Status: Acute (3) History of tobacco use Current Visit: Yes Status: Acute (4) History of hypertension Current Visit: Yes Status: Acute (5) History of breast cancer Current Visit: Yes Status: Acute - Plan 1. Improving overall O2 sat on room air maintaining above 90% -Patient discussed with her about going home with Tamiflu and oral antibiotics but she is resistant. She would like to stay for multiple more days on see finishing antibiotics course Extensive discussion had with patient about no urgent need to keep her inpatient since improving oxygenation. We discharge patient home today. Continue HD 3 times per week as outpatient Continue GI and DVT prophylaxis Discharge Plan: Home Plan to discharge in: Greater than 2 days - Advance Directives Does patient have a Living Will: No Does patient have a Durable POA for Healthcare: No 01/21/22 13:22 01/22/22 09:44 Time Spent Managing PTS Care (In Minutes): 35
--- NOTE | 2022-01-22 10:05 | P.DS ---
Admission Date: 01/19/22 Discharge Date: 01/22/22 Disposition: DC HOME/HOME HEALTH CARE Discharge Condition: FAIR Reason for Admission: Pneumonia with questionable COPD Brief History of Present Illness: History of Present Illness: Patient is a 76 year-old female who came to the hospital with shortness of breath. She has started feeling ill a few days ago at hemodialysis. She talked to her PCP and she went and saw her nurse practitioner who gave her an intramuscular injection of an antibiotic. She states that she felt good for about 24-48 hours but then she started feeling poorly again. She was seen at hemodialysis and sent to the hospital today. She was given IV vancomycin at dialysis on Thursday. Since she was feeling worse she was advised to go to the hospital where they started her on oral antibiotic therapy. She has a left basilar pneumonia. She also has a history of tobacco use but she quit almost 20 years ago. Prior to that she had a roughly 40 pack-year history of smoking. Maria grant will be admitted to the hospital and will consult Nephrology for hemodialysis. We will also consult Pulmonary for the pneumonia. Allergies No Known Allergies Allergy (Verified 05/08/20 11:39) Home Medications: Chondro Ke[place] A/Vit C/Manganese [Chondroitin Sulf 400 mg Cap] 1 tab PO BID 05/08/20 Docosahexanoic AC/Epa [Fish Oil 1,000 MG CAP] 1,000 mg PO DAILY 05/08/20 Fenofibrate [Tricor] 160 mg PO DAILY 05/08/20 Folic Acid 2 tab PO BID 05/08/20 Garlic 1 each PO BID 05/08/20 Oxybutynin Chloride 5 mg PO BID 05/08/20 glucosamine HCL [Glucosamine HCl] 500 mg PO BID 05/08/20 Albuterol Inhaler [Ventolin Inhaler*] 2 puff IH PRN 01/19/22 Methoxy Peg-Epoetin Beta [Mircera] 100 mcg IV SEECOM 01/19/22 Nifedipine [Nifedipine ER] 60 mg PO BID 01/19/22 Ropinirole HCl 0.25 mg PO BEDTIME 01/19/22 Sevelamer Carbonate [Renvela] 800 mg PO PRN 01/19/22 Hospital Course: Hospital course Patient with history of ESRD on HD admitted for fluid pneumonia. She was initially dyspneic and requiring supplemental O2. Flu swab was positive for influenza A infection. Patient was to continue broad empirical antibiotics but was added Tamiflu. She started to have improvement in her symptoms. Patient repeatedly refused to be weaned off nonrebreather mask. She was resumed on her dialysis with adequate ultrafiltration. She was later tested and noted to have persistent O2 sat above 91% while on room air. Patient is being discharged to continue 5-day course of Tamiflu 1 tablet after dialysis for the next 3 days. She will continue her regular 3 times a week dialysis. - Physical Exam General: Alert, In no apparent distress, Oriented x3, not dyspneic on room air HEENT: Atraumatic, PERRLA, Mucous membr. moist/pink, EOMI, Sclerae nonicteric Neck: Supple, 2+ carotid pulse no bruit, No LAD, Without JVD or thyroid abnormality Respiratory: Good air entry, no wheeze or crackles Cardiovascular: Regular rate/rhythm, Normal S1 S2, Systolic murmur Gastrointestinal: Normal bowel sounds, Soft and benign, Non-distended, No tenderness Musculoskeletal: No tenderness Integumentary: No rashes Neurological: Normal gait, Normal speech, Normal tone, Normal affect, Abnormal strength Lymphatics: No axilla or inguinal lymphadenopathy Important testing 01/19/22 14:54 Nasopharnyx Influenza Type A Antigen Screen - positive 01/19/22 14:54 Nasopharnyx Influenza Type B Antigen Screen - Final Assessment & Plan Influenza A Pneumonia (1) Pneumonia Current Visit: Yes Status: Acute (2) ESRD (end stage renal disease) Current Visit: Yes Status: Acute (3) History of tobacco use Current Visit: Yes Status: Acute (4) History of hypertension Current Visit: Yes Status: Acute (5) History of breast cancer Current Visit: Yes Status: Acute Vital Signs/Physical Exam: Temp Pulse Resp BP Pulse Ox 97.2 F 75 19 115/53 L 100 01/22/22 09:45 01/22/22 09:45 01/22/22 09:45 01/22/22 09:45 01/22/22 09:45 Laboratory Data at Discharge: WBC 5.1 K/uL (4.3-10.9) 01/20/22 03:30 Hgb 8.9 g/dL (12.0-15.0) L 01/20/22 03:30 Hct 27.9 % (36.0-45.0) L 01/20/22 03:30 Plt Count 54 K/uL (152-406) L D 01/20/22 03:30 PT 18.8 SECONDS (9.5-12.5) H 01/19/22 13:59 INR 1.69 01/19/22 13:59 Sodium 138 mmol/L (136-145) 01/20/22 03:30 Potassium 4.2 mmol/L (3.5-5.1) 01/20/22 03:30 BUN 18 mg/dL (7-18) 01/20/22 03:30 Creatinine 3.06 mg/dL (0.55-1.3) H 01/20/22 03:30 Glucose 79 mg/dL (74-106) 01/20/22 03:30 Magnesium 1.7 mg/dL (1.8-2.4) L 01/20/22 03:30 Total Bilirubin 0.4 mg/dL (0.2-1.0) 01/20/22 03:30 AST 35 U/L (15-37) 01/20/22 03:30 ALT 13 U/L (12-78) 01/20/22 03:30 Alkaline Phosphatase 54 U/L (45-117) 01/20/22 03:30 Triglycerides 56 mg/dL (<150) 01/20/22 03:30 Cholesterol 90 mg/dL (<200) 01/20/22 03:30 HDL Cholesterol 39 mg/dL (40-60) L 01/20/22 03:30 Cholesterol/HDL Ratio 2.31 01/20/22 03:30 Home Medications: Chondro Keating A/Vit C/Manganese [Chondroitin Sulf 400 mg Cap] 1 tab PO BID 05/08/20 Docosahexanoic AC/Epa [Fish Oil 1,000 MG*] 1,000 mg PO DAILY 05/08/20 Fenofibrate [Tricor*] 160 mg PO DAILY 05/08/20 Folic Acid 2 tab PO BID 05/08/20 Garlic 1 each PO BID 05/08/20 Oxybutynin Chloride 5 mg PO BID 05/08/20 glucosamine HCL [Glucosamine HCl] 500 mg PO BID 05/08/20 Albuterol Inhaler [Ventolin Inhaler*] 2 puff IH PRN 01/19/22 Methoxy Peg-Epoetin Beta [Mircera] 100 mcg IV SEECOM 01/19/22 Nifedipine [Nifedipine ER] 60 mg PO BID 01/19/22 Ropinirole HCl 0.25 mg PO BEDTIME 01/19/22 Sevelamer Carbonate [Renvela] 800 mg PO PRN 01/19/22 Amox/Clavulanate [Augmentin 500-125 mg Tab] 500 mg PO DAILY 5 Days #7 tab 01/22/22 Benzonatate [Tessalon Perle*] 200 mg PO TID PRN #21 cap 01/22/22 Calcitrol [Rocaltrol*] 0.5 mcg PO DAILY #15 cap 01/22/22 Oseltamivir Phosphate [Tamiflu] 30 mg PO Q48H #2 cap 01/22/22 guaiFENesin [Guaifenesin ER] 600 mg PO BID #6 tab.er.12h 01/22/22 New Medications: Amox/Clavulanate [Augmentin 500-125 mg Tab] 500 mg PO DAILY 5 Days #7 tab guaiFENesin [Guaifenesin ER] 600 mg PO BID #6 tab.er.12h Calcitrol [Rocaltrol*] 0.5 mcg PO DAILY #15 cap Oseltamivir Phosphate [Tamiflu] 30 mg PO Q48H #2 cap Benzonatate [Tessalon Perle*] 200 mg PO TID PRN #21 cap PRN Reason: use 1st prn COUGH Diet: Renal Activity: Ad shadi Followup: Deonte Castaneda DO [Primary Care Provider] - Time spent managing pt's care (in minutes): 35
[2022-01-22] MEDS: FENOFIBRATE 160 MG TAB PO SCH (10:29)
[2022-01-22] MEDS: VITAMIN D 5,000 UNIT CAP PO SCH (10:29)
[2022-01-22] MEDS: OXYBUTYNIN CHLORIDE 5 MG TAB PO SCH ×2 (10:29→20:59)
[2022-01-22] MEDS: FOLIC ACID 1 MG TABLET PO SCH ×2 (10:29→20:59)
[2022-01-22] MEDS: SEVELAMER CARBONATE 800 MG TABLET PO SCH ×3 (10:32→18:36)
[2022-01-22] MEDS: DOCOSAHEXANOIC AC/EPA 1000 MG PO SCH (10:33)
[2022-01-22] MEDS: NIFEDIPINE XL 60 MG TABLET PO SCH (10:34)
[2022-01-22] MEDS: CEFTRIAXONE 1,000 MG in NA CHLORIDE 0.9% 50 ML IVPB SCH (10:36)
--- NOTE | 2022-01-22 11:56 | RAD REPORT ---
EXAM DESCRIPTION: RAD - Chest Single View - 01/22/2022 11:47 am CLINICAL HISTORY: pneumonia COMPARISON: Chest Single View dated 01/19/2022; Chest Pa And Lat (2 Views) dated 01/13/2022; Chest Pa And Lat (2 Views) dated 11/22/2021; Chest Pa And Lat (2 Views) dated 05/08/2020 FINDINGS: Lines: None. Lungs: Worsening airspace disease throughout the left lung. Increased opacities at the right lung bas e . Pleural: Left pleural effusion. Cardiac: The heart size is within normal limits. Bones: No acute fractures. Other: IMPRESSION: Worsened aeration of the lungs with increasing mild diffuse opacities in the left lung a nd at the right lung base. This could reflect pneumonia with or without edema.
[2022-01-22] MEDS: OSELTAMIVIR 30 MG CAP PO SCH (13:00)
[2022-01-22] MEDS: EPOETIN ALFA 10,000 UNIT/ML VIAL SQ SCH (17:00)
--- NOTE | 2022-01-22 20:46 | P.PN ---
Date of Service: 01/22/22 Vital Signs Temp Pulse Resp BP Pulse Ox 98.2 F 89 18 144/65 H 93 01/22/22 12:00 01/22/22 12:00 01/22/22 12:00 01/22/22 12:00 01/22/22 12:00 Medications Acetaminophen (Acetaminophen 500 Mg Tab) 500 mg PO Q4HP PRN PRN Reason: PAIN/FEVER Last Admin: 01/22/22 01:06 Dose: 500 mg Documented by: Albuterol Sulfate (Albuterol 2.5 Mg/3 Ml Neb Kisha) 2.5 mg NEB [id number] PRN PRN Reason: SHORTNESS OF BREATH Last Admin: 01/20/22 21:45 Dose: 2.5 mg Documented by: Benzonatate (Benzonatate 100 Mg Cap) 200 mg PO TID PRN PRN Reason: use 1st prn COUGH Last Admin: 01/20/22 09:34 Dose: 200 mg Documented by: Calcitriol (Calcitrol 0.25 Mcg Cap) 0.5 mcg PO DAILY [facility] Last Admin: 01/22/22 09:00 Dose: Not Given Documented by: Cholecalciferol (Vitamin D 5,000 Unit Cap) 5,000 unit PO DAILY [facility] Last Admin: 01/22/22 10:29 Dose: 5,000 unit Documented by: Docusate Sodium (Docusate Na 100 Mg Cap) 100 mg PO BID [facility] Last Admin: 01/22/22 09:00 Dose: Not Given Documented by: Enteral Nutritional Formula (Nepro Shake 237 Ml Can) 240 ml PO TID [facility] Last Admin: 01/22/22 14:14 Dose: 240 ml Documented by: Epoetin Salty (Epoetin Salty 10,000 Unit/Ml Vial) 10,000 unit SQ M,W,F [facility] Last Admin: 01/22/22 17:00 Dose: Not Given Documented by: Fenofibrate (Fenofibrate 160 Mg Tab) 160 mg PO DAILY [facility] Last Admin: 01/22/22 10:29 Dose: 160 mg Documented by: Fish Oil (Docosahexanoic Ac/Epa 1000 Mg) 1,000 mg PO DAILY [facility] Last Admin: 01/22/22 10:33 Dose: 1,000 mg Documented by: Folic Acid (Folic Acid 1 Mg Tablet) 2 mg PO BID [facility] Last Admin: 01/22/22 10:29 Dose: 2 mg Documented by: Guaifenesin/Codeine Phosphate (Guaifenesin/Codeine 5ml Ucup) 5 ml PO QID PRN PRN Reason: use 2nd for COUGH Last Admin: 01/22/22 14:30 Dose: 5 ml Documented by: Heparin Sodium (Porcine) (Heparin 1,000 Unit/Ml Vial) 4,000 unit IV EVERY HD PRN PRN Reason: DIALYSIS CATHETER CARE Last Admin: 01/21/22 18:58 Dose: 4,000 unit Documented by: Home Med (Chondro Keating A/Vit C/Manganese [Chondroitin Sulf 400 Mg Cap]) 1 tab PO BID [facility] Last Admin: 01/22/22 20:37 Dose: Not Given Documented by: Home Med (Garlic [Garlic]) 1 each PO BID [facility] Last Admin: 01/22/22 20:37 Dose: Not Given Documented by: Home Med (Methoxy Peg-Epoetin Beta [Mircera]) [facility]cg IV [facility] Albumin Human (Albumin 25%) 50 mls @ 100 mls/hr IV EVERY HD [facility] Ipratropium [place] (Ipratropium Brom 0.5mg/2.5ml) 0.5 mg NEB [id number] PRN PRN Reason: SHORTNESS OF BREATH Last Admin: 01/20/22 21:45 Dose: 0.5 mg Documented by: Mannitol (Mannitol 25% 12.5 Gm/50 Ml Vial) 12.5 gm IV EVERY HD PRN PRN Reason: Titrate to SBP (MUST DEFINE) Ondansetron HCl (Ondansetron 4 Mg/2 Ml Vial) 4 mg IV Q6HP PRN PRN Reason: NAUSEA / VOMITING Oseltamivir Phosphate (Oseltamivir 30 Mg Cap) 30 mg PO Q48H [facility] Stop: 01/24/22 13:01 Last Admin: 01/22/22 13:00 Dose: Not Given Documented by: Oxybutynin Chloride (Oxybutynin Chloride 5 Mg Tab) 5 mg PO BID [facility] Last Admin: 01/22/22 10:29 Dose: 5 mg Documented by: Ropinirole HCl (Ropinirole Hcl 0.25 Mg Tab) 0.25 mg PO BEDTIME [facility] Last Admin: 01/21/22 20:28 Dose: 0.25 mg Documented by: Sevelamer Carbonate (Sevelamer Carbonate 800 Mg Tablet) 800 mg PO BIDWM [facility] Last Admin: 01/22/22 18:36 Dose: 800 mg Documented by: Sodium Chloride (Flush Normal Saline 10 Ml) 10 ml IV BID [facility] Last Admin: 01/22/22 09:00 Dose: 10 ml Documented by: Microbiology Results 01/19/22 14:16 Blood - Blood Aerobic Blood Culture - Preliminary No growth in 24 hours. 01/19/22 14:16 Blood - Blood Anaerobic Blood Culture - Preliminary No growth in 24 hours. 01/19/22 13:59 Blood - Blood Aerobic Blood Culture - Preliminary No growth in 24 hours. 01/19/22 13:59 Blood - Blood Anaerobic Blood Culture - Preliminary No growth in 24 hours. 01/19/22 14:54 Nasopharnyx Influenza Type A Antigen Screen - Final 01/19/22 14:54 Nasopharnyx Influenza Type B Antigen Screen - Final Assessment/ Plan: Nephrology No chest pain Fair appetite No acute events overnight Vitals, medications, blood work and imaging reviewed in the chart. General: In no apparent distress, Cooperative HEENT: Atraumatic Neck: Supple Respiratory: CTA/ Normal respiratory effort Cardiovascular: No edema, Regular rate/rhythm Gastrointestinal: Soft and benign, Non-distended Musculoskeletal: No clubbing, No contractures Integumentary: No rashes, No cyanosis Neurological: Normal speech Laboratory Data (last 24 hrs) 01/19/22 13:59: PT 18.8 H, INR 1.69 01/19/22 13:59: WBC 5.7, Hgb 9.8 L, Hct 29.1 L, Plt Count 69 L 01/19/22 13:59: Sodium 138, Potassium 3.7, BUN 12, Creatinine 2.58 H, Glucose 84, Magnesium 1.7 L, Total Bilirubin 0.6, AST 37, ALT 17, Alkaline Phosphatase 60 Imagings Data: EXAM DESCRIPTION: RAD - Chest Single View - 01/19/2022 1:26 pm CLINICAL HISTORY: DYSPNEA COMPARISON: Two view chest January 13 TECHNIQUE: AP portable chest image was obtained 01/19/2022 1:26 pm . FINDINGS: Baseline fibrotic lung pattern again noted. Retrocardiac left base is hazy poorly visualized left hemidiaphragm. Left pneumonia is suspected needs correlation with exam findings. No significant failure or volume overload. Right-sided double-lumen dialysis catheter in place. Heart and vasculature are normal. No measurable pleural effusion and no pneumothorax. No acute bony abnormality seen. No acute aortic findings suspected. IMPRESSION: Suspected left base pneumonia. Conclusions/Impression: ESRD Proteinuria -HD TIW -Acute UF today; seen and examined on HD 2.8L removed Hypomagnesemia -Replete prn HTN with CKD/ CHF -Continue Nifedipine Diastolic CHF, A/C Acute respiratory failure suspicious for COPD exacerbation Left base PNA -Continue IV Abx -HD with UF Moderate malnutrition -Continue Nepro Anemia in CKD Thrombocytopenia -Retacrit TIW CKD MBD -Continue Vitamin D Case reviewed with Dr. Soto
[2022-01-22] MEDS: ROPINIROLE HCL 0.25 MG TAB PO SCH (20:59)
[2022-01-23 06:14] LABS: Absolute Lymphocytes (CBC) 2.2 K/uL (0.7-4.9); Hematocrit 26.4 % (36.0-45.0); Lymphocytes % 30.2 % (15.3-44.8); MPV 10.5 fL (7.6-11.3); RBC Red Blood Cell Count 2.27 M/uL (3.86-4.86)
[2022-01-23 06:28] LABS: Albumin 2.4 g/dL (3.4-5.0); Bilirubin Total 0.5 mg/dL (0.2-1.0); C-Reactive Protein 88.6 mg/L (<3.00); Magnesium 1.8 mg/dL (1.8-2.4); Phosphorus 5.2 mg/dL (2.5-4.9); Potassium 3.5 mmol/L (3.5-5.1); Uric Acid 4.7 mg/dL (2.6-6.0)
[2022-01-23 08:11] LABS: Anisocytosis 3+; Blood Morphology Comment NOTED (NOT SEEN); Macrocytosis 3+; Platelet Estimate DECR; Platelets, Giant FEW; White Blood Cell Scan OK (OK)
[2022-01-23 08:12] LABS: ACANTHOCYTE 1+; Hypochromasia 1+; Poikilocytosis 1+; Target Cells FEW; Teardrop Cell 1+
[2022-01-23] MEDS: FOLIC ACID 1 MG TABLET PO SCH ×2 (08:12→20:44)
[2022-01-23] MEDS: VITAMIN D 5,000 UNIT CAP PO SCH (08:12)
[2022-01-23] MEDS: FENOFIBRATE 160 MG TAB PO SCH (08:12)
[2022-01-23] MEDS: DOCOSAHEXANOIC AC/EPA 1000 MG PO SCH (08:12)
[2022-01-23] MEDS: CALCITROL 0.25 MCG CAP PO SCH (08:12)
[2022-01-23] MEDS: OXYBUTYNIN CHLORIDE 5 MG TAB PO SCH ×2 (08:12→20:44)
[2022-01-23] MEDS: SEVELAMER CARBONATE 800 MG TABLET PO SCH ×2 (08:12→17:15)
[2022-01-23] MEDS: GARLIC PO SCH ×2 (08:13→20:43)
[2022-01-23] MEDS: DOCUSATE NA 100 MG CAP PO SCH ×2 (08:13→20:42)
[2022-01-23] MEDS: CHONDROITIN PO SCH ×2 (08:13→20:42)
[2022-01-23] MEDS: NEPRO SHAKE 237 ML CAN PO SCH ×3 (08:14→20:58)
[2022-01-23] MEDS: GUAIFENESIN/CODEINE 5ML UCUP PO PRN ×3 (08:22→21:59)
--- NOTE | 2022-01-23 08:35 | RAD REPORT ---
EXAM DESCRIPTION: RAD - Chest Single View - 01/23/2022 5:58 am CLINICAL HISTORY: f/u pulm opacities / edema Chest pain. COMPARISON: Chest Single View dated 01/22/2022; Chest Single View dated 01/19/2022; Chest Pa And Lat ( 2 Views) dated 01/13/2022; Chest Pa And Lat (2 Views) dated 11/22/2021 FINDINGS: Portable technique limits examination quality. Mild worsening in the bilateral pulmonary edema pattern since the comparative study. The heart is mil dly prominent size. Small left pleural effusion. Right-sided venous catheter has tip seen in the righ t atrium. IMPRESSION: Mild worsening in lung aeration is seen since comparative study.
--- NOTE | 2022-01-23 18:02 | P.PN ---
Date of Service: 01/23/22 Subjective: slight improvement patient feels short of breath at times despite SpO2 > 92%, refuses to uses anyt dario but non-rebreather mask ROS: 10 point ROS as noted above, otherwise negative Physical exam GEN: Alert, oriented, NAD HEENT: Normal conjunctiva, sclera anicteric CV: Regular rate and rhythm, no edema Pulm: b/l rhonchi, nonlabored on room air ABD: Soft, nontender, nondistended Neuro: Normal speech, normal affect Problem List Pneumonia secondary to influenza ESRD on HD (TTS) h/o tobacco abuse HTN h/o breast cancer anemia of chronic disease continue tamiflu s/p 3 days of rocephin low possibility of bacterial superinfection cxr with mild worsening aeration nephro consulted for HD discussed no need for nonrebreather mask, patient SpO2 > 92% incentive spirometery ordered hgb stable plan for HD today Code: full Dispo: home, ~1-2 days Time Spent Managing Pts Care (In Minutes): 35
[2022-01-23] MEDS ORDERED: Levofloxacin 250mg IV 250 MG/50 ML BAG IV SCH (19:00)
[2022-01-23] MEDS: ROPINIROLE HCL 0.25 MG TAB PO SCH (20:44)
--- NOTE | 2022-01-23 21:04 | P.PN ---
Date of Service: 01/23/22 Vital Signs Temp Pulse Resp BP Pulse Ox 98.1 F 88 20 152/66 H 100 01/23/22 16:00 01/23/22 16:00 01/23/22 16:00 01/23/22 16:00 01/23/22 16:00 Medications Acetaminophen (Acetaminophen 500 Mg Tab) 500 mg PO Q4HP PRN PRN Reason: PAIN/FEVER Last Admin: 01/22/22 01:06 Dose: 500 mg Documented by: Albuterol Sulfate (Albuterol 2.5 Mg/3 Ml Neb Kisha) 2.5 mg NEB [id number] PRN PRN Reason: SHORTNESS OF BREATH Last Admin: 01/20/22 21:45 Dose: 2.5 mg Documented by: Benzonatate (Benzonatate 100 Mg Cap) 200 mg PO TID PRN PRN Reason: use 1st prn COUGH Last Admin: 01/20/22 09:34 Dose: 200 mg Documented by: Calcitriol (Calcitrol 0.25 Mcg Cap) 0.5 mcg PO DAILY [facility] Last Admin: 01/23/22 08:12 Dose: Not Given Documented by: Cholecalciferol (Vitamin D 5,000 Unit Cap) 5,000 unit PO DAILY [facility] Last Admin: 01/23/22 08:12 Dose: 5,000 unit Documented by: Docusate Sodium (Docusate Na 100 Mg Cap) 100 mg PO BID [facility] Last Admin: 01/23/22 08:13 Dose: Not Given Documented by: Enteral Nutritional Formula (Nepro Shake 237 Ml Can) 240 ml PO TID [facility] Last Admin: 01/23/22 14:00 Dose: Not Given Documented by: Epoetin Salty (Epoetin Salty 10,000 Unit/Ml Vial) 10,000 unit SQ M,W,F [facility] Last Admin: 01/22/22 17:00 Dose: Not Given Documented by: Fenofibrate (Fenofibrate 160 Mg Tab) 160 mg PO DAILY [facility] Last Admin: 01/23/22 08:12 Dose: 160 mg Documented by: Fish Oil (Docosahexanoic Ac/Epa 1000 Mg) 1,000 mg PO DAILY [facility] Last Admin: 01/23/22 08:12 Dose: 1,000 mg Documented by: Folic Acid (Folic Acid 1 Mg Tablet) 2 mg PO BID [facility] Last Admin: 01/23/22 08:12 Dose: 2 mg Documented by: Guaifenesin/Codeine Phosphate (Guaifenesin/Codeine 5ml Ucup) 5 ml PO QID PRN PRN Reason: use 2nd for COUGH Last Admin: 01/23/22 15:47 Dose: 5 ml Documented by: Heparin Sodium (Porcine) (Heparin 1,000 Unit/Ml Vial) 4,000 unit IV EVERY HD PRN PRN Reason: DIALYSIS CATHETER CARE Last Admin: 01/21/22 18:58 Dose: 4,000 unit Documented by: Home Med (Chondro Keating A/Vit C/Manganese [Chondroitin Sulf 400 Mg Cap]) 1 tab PO BID [facility] Last Admin: 01/23/22 08:13 Dose: Not Given Documented by: Home Med (Garlic [Garlic]) 1 each PO BID [facility] Last Admin: 01/23/22 08:13 Dose: Not Given Documented by: Home Med (Methoxy Peg-Epoetin Beta [Mircera]) 100 mcg IV SEECOM [facility] Albumin Human (Albumin 25%) 50 mls @ 100 mls/hr IV EVERY HD [facility] Levofloxacin/Dextrose (Levaquin 250mg/50 Ml Ivpb) 250 mg in 50 mls @ 50 mls/hr IV Q24H AKIKO; Protocol Ipratropium [place] (Ipratropium Brom 0.5mg/2.5ml) 0.5 mg NEB [id number] PRN PRN Reason: SHORTNESS OF BREATH Last Admin: 01/20/22 21:45 Dose: 0.5 mg Documented by: Mannitol (Mannitol 25% 12.5 Gm/50 Ml Vial) 12.5 gm IV EVERY HD PRN PRN Reason: Titrate to SBP (MUST DEFINE) Ondansetron HCl (Ondansetron 4 Mg/2 Ml Vial) 4 mg IV Q6HP PRN PRN Reason: NAUSEA / VOMITING Oseltamivir Phosphate (Oseltamivir 30 Mg Cap) 30 mg PO Q48H [facility] Stop: 01/24/22 13:01 Last Admin: 01/22/22 13:00 Dose: Not Given Documented by: Oxybutynin Chloride (Oxybutynin Chloride 5 Mg Tab) 5 mg PO BID [facility] Last Admin: 01/23/22 08:12 Dose: 5 mg Documented by: Ropinirole HCl (Ropinirole Hcl 0.25 Mg Tab) 0.25 mg PO BEDTIME [facility] Last Admin: 01/22/22 20:59 Dose: 0.25 mg Documented by: Sevelamer Carbonate (Sevelamer Carbonate 800 Mg Tablet) 800 mg PO BIDWM [facility] Last Admin: 01/23/22 17:15 Dose: 800 mg Documented by: Sodium Chloride (Flush Normal Saline 10 Ml) 10 ml IV BID [facility] Last Admin: 01/23/22 08:13 Dose: 10 ml Documented by: Microbiology Results 01/19/22 14:16 Blood - Blood Aerobic Blood Culture - Preliminary No growth in 24 hours. 01/19/22 14:16 Blood - Blood Anaerobic Blood Culture - Preliminary No growth in 24 hours. 01/19/22 13:59 Blood - Blood Aerobic Blood Culture - Preliminary No growth in 24 hours. 01/19/22 13:59 Blood - Blood Anaerobic Blood Culture - Preliminary No growth in 24 hours. 01/19/22 14:54 Nasopharnyx Influenza Type A Antigen Screen - Final 01/19/22 14:54 Nasopharnyx Influenza Type B Antigen Screen - Final Assessment/ Plan: Nephrology No chest pain Fair appetite No acute events overnight Vitals, medications, blood work and imaging reviewed in the chart. General: In no apparent distress, Cooperative HEENT: Atraumatic Neck: Supple Respiratory: CTA/ Normal respiratory effort Cardiovascular: No edema, Regular rate/rhythm Gastrointestinal: Soft and benign, Non-distended Musculoskeletal: No clubbing, No contractures Integumentary: No rashes, No cyanosis Neurological: Normal speech Laboratory Data (last 24 hrs) 01/19/22 13:59: PT 18.8 H, INR 1.69 01/19/22 13:59: WBC 5.7, Hgb 9.8 L, Hct 29.1 L, Plt Count 69 L 01/19/22 13:59: Sodium 138, Potassium 3.7, BUN 12, Creatinine 2.58 H, Glucose 84, Magnesium 1.7 L, Total Bilirubin 0.6, AST 37, ALT 17, Alkaline Phosphatase 60 Imagings Data: EXAM DESCRIPTION: RAD - Chest Single View - 01/19/2022 1:26 pm CLINICAL HISTORY: DYSPNEA COMPARISON: Two view chest January 13 TECHNIQUE: AP portable chest image was obtained 01/19/2022 1:26 pm . FINDINGS: Baseline fibrotic lung pattern again noted. Retrocardiac left base is hazy poorly visualized left hemidiaphragm. Left pneumonia is suspected needs correlation with exam findings. No significant failure or volume overload. Right-sided double-lumen dialysis catheter in place. Heart and vasculature are normal. No measurable pleural effusion and no pneumothorax. No acute bony abnormality seen. No acute aortic findings suspected. IMPRESSION: Suspected left base pneumonia. Conclusions/Impression: ESRD Proteinuria -HD TIW -Acute UF today Hypomagnesemia -Replete prn HTN with CKD/ CHF -Hold Nifedipine Diastolic CHF, A/C Acute respiratory failure suspicious for COPD exacerbation Left base PNA -Continue IV Abx -HD with UF Moderate malnutrition -Continue Nepro Anemia in CKD Thrombocytopenia -Retacrit TIW CKD MBD -Continue Vitamin D Case reviewed with Dr. Soto
[2022-01-24] MEDS: ALBUTEROL 2.5 MG/3 ML NEB SOL NEB PRN (02:00)
[2022-01-24] MEDS: IPRATROPIUM BROM 0.5MG/2.5ML NEB PRN (02:00)
[2022-01-24 06:41] LABS: Hematocrit 29.2 % (36.0-45.0); MPV 10.6 fL (7.6-11.3); RBC Red Blood Cell Count 2.53 M/uL (3.86-4.86)
[2022-01-24] MEDS: SEVELAMER CARBONATE 800 MG TABLET PO SCH (08:00)
--- NOTE | 2022-01-24 08:07 | RAD REPORT ---
EXAM DESCRIPTION: [facility] Single View01/24/2022 5:22 am CLINICAL HISTORY: Hypoxia COMPARISON: January 23, 2022 FINDINGS: Bilateral pulmonary opacities have mostly resolved. Heart remains enlarged. Central venou s catheter in place. IMPRESSION: Pulmonary edema has mostly resolved
[2022-01-24] MEDS: CHONDROITIN PO SCH (09:00)
[2022-01-24] MEDS: GARLIC PO SCH (09:00)
[2022-01-24] MEDS: DOCOSAHEXANOIC AC/EPA 1000 MG PO SCH (10:03)
[2022-01-24] MEDS: DOCUSATE NA 100 MG CAP PO SCH (10:03)
[2022-01-24] MEDS: VITAMIN D 5,000 UNIT CAP PO SCH (10:04)
[2022-01-24] MEDS: OXYBUTYNIN CHLORIDE 5 MG TAB PO SCH (10:04)
[2022-01-24] MEDS: FOLIC ACID 1 MG TABLET PO SCH (10:04)
[2022-01-24] MEDS: FENOFIBRATE 160 MG TAB PO SCH (10:04)
[2022-01-24] MEDS: NEPRO SHAKE 237 ML CAN PO SCH (10:06)
[2022-01-24] MEDS: CALCITROL 0.25 MCG CAP PO SCH (10:06)
[2022-01-24] MEDS: GUAIFENESIN/CODEINE 5ML UCUP PO PRN (10:28)
[2022-01-24 10:50] VITALS: O2SAT 94
[2022-01-24] MEDS: OSELTAMIVIR 30 MG CAP PO SCH (13:00)
--- NOTE | 2022-01-24 13:00 | P.DS ---
Admission Date: 01/19/22 Discharge Date: 01/24/22 Disposition: DC HOME/HOME HEALTH CARE Discharge Condition: FAIR Reason for Admission: Pneumonia with questionable COPD Consultations: Nephrology - Dr. Castaneda Brief History of Present Illness: 76yo F, presented to ED with shortness of breath. Began a few days prior at dialysis. 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 In the ED, diagnosed with pneumonia. Hospital Course: Problem List Pneumonia secondary to influenza ESRD on HD (TTS) h/o tobacco abuse HTN h/o breast cancer anemia of chronic disease Patient presented with shortness of breath. She was found to be flu A positive. She was empirically treated with antibiotics for possible bacterial component of pneumonia, along with tamiflu and supportive measures. Imaging was also consistent with fluid overload / pulmonary edema, which also contributed to her shortness of breath. She had improvement with medications and hemodialysis. Chest x-ray improved and on day of discharge, acute findings were nearly resolved. She was deemed stable for discharge home. Resume home medications except for nifedipine. Discharged home with augmentin to complete antibiotic coverage for possible bacterial component. Suspect this is all from flu and pulmonary edema, but given patient's medical history and risk, she will continue on antibiotics. Follow up with PCP within 1-2 weeks Follow up with Dr. Castaneda within 1-2 weeks. Vital Signs/Physical Exam: Temp Pulse Resp BP Pulse Ox 98.7 F 88 20 182/80 H 94 01/24/22 08:00 01/24/22 08:00 01/24/22 08:00 01/24/22 08:00 01/24/22 08:00 Physical exam GEN: Alert, oriented, NAD HEENT: Normal conjunctiva, sclera anicteric CV: Regular rate and rhythm, no edema Pulm: nonlabored respirations on room air ABD: Soft, nontender, nondistended Neuro: Normal speech, normal affect Laboratory Data at Discharge: WBC 7.3 K/uL (4.3-10.9) 01/24/22 06:19 Hgb 9.6 g/dL (12.0-15.0) L 01/24/22 06:19 Hct 29.2 % (36.0-45.0) L 01/24/22 06:19 Plt Count 83 K/uL (152-406) L 01/24/22 06:19 PT 18.8 SECONDS (9.5-12.5) H 01/19/22 13:59 INR 1.69 01/19/22 13:59 Sodium 136 mmol/L (136-145) 01/23/22 05:26 Potassium 3.5 mmol/L (3.5-5.1) 01/23/22 05:26 BUN 36 mg/dL (7-18) H 01/23/22 05:26 Creatinine 3.27 mg/dL (0.55-1.3) H 01/23/22 05:26 Glucose 79 mg/dL (74-106) 01/23/22 05:26 Uric Acid 4.7 mg/dL (2.6-6.0) D 01/23/22 05:26 Phosphorus 5.2 mg/dL (2.5-4.9) H 01/23/22 05:26 Magnesium 1.8 mg/dL (1.8-2.4) 01/23/22 05:26 Total Bilirubin 0.5 mg/dL (0.2-1.0) 01/23/22 05:26 AST 35 U/L (15-37) 01/23/22 05:26 ALT 13 U/L (12-78) 01/23/22 05:26 Alkaline Phosphatase 57 U/L (45-117) 01/23/22 05:26 Triglycerides 56 mg/dL (<150) 01/20/22 03:30 Cholesterol 90 mg/dL (<200) 01/20/22 03:30 HDL Cholesterol 39 mg/dL (40-60) L 01/20/22 03:30 Cholesterol/HDL Ratio 2.31 01/20/22 03:30 Home Medications: Chondro [place] A/Vit C/Manganese [Chondroitin Sulf 400 mg Cap] 1 tab PO BID 05/08/20 Docosahexanoic AC/Epa [Fish Oil 1,000 MG*] 1,000 mg PO DAILY 05/08/20 Fenofibrate [Tricor*] 160 mg PO DAILY 05/08/20 Folic Acid 2 tab PO BID 05/08/20 Garlic 1 each PO BID 05/08/20 Oxybutynin Chloride 5 mg PO BID 05/08/20 glucosamine HCL [Glucosamine HCl] 500 mg PO BID 05/08/20 Albuterol Inhaler [Ventolin Inhaler*] 2 puff IH PRN 01/19/22 Methoxy Peg-Epoetin Beta [Mircera] 100 mcg IV SEECOM 01/19/22 Nifedipine [Nifedipine ER] 60 mg PO BID 01/19/22 Ropinirole HCl 0.25 mg PO BEDTIME 01/19/22 Sevelamer Carbonate [Renvela] 800 mg PO PRN 01/19/22 Amox/Clavulanate [Augmentin 500-125 mg Tab] 500 mg PO DAILY 5 Days #7 tab 01/22/22 guaiFENesin [Guaifenesin ER] 600 mg PO BID #6 tab.er.12h 01/22/22 New Medications: Amox/Clavulanate [Augmentin 500-125 mg Tab] 500 mg PO DAILY 5 Days #7 tab guaiFENesin [Guaifenesin ER] 600 mg PO BID #6 tab.er.12h Diet: Renal Activity: Ad shadi Followup: Deonte Castaneda DO [Primary Care Provider] - (Follow up with dialysis as scheduled) Time spent managing pt's care (in minutes): 40
[2022-01-24 14:02] VITALS: BP 182/81; TEMP 98.5
--- NOTE | 2022-01-24 19:58 | P.PN ---
Date of Service: 01/24/22 Vital Signs Temp Pulse Resp BP Pulse Ox 98.5 F 88 20 182/81 H 97 01/24/22 12:00 01/24/22 12:00 01/24/22 12:00 01/24/22 12:00 01/24/22 12:00 Microbiology Results 01/19/22 14:16 Blood - Blood Aerobic Blood Culture - Final No growth in 5 days. 01/19/22 14:16 Blood - Blood Anaerobic Blood Culture - Final No growth in 5 days. 01/19/22 13:59 Blood - Blood Aerobic Blood Culture - Final No growth in 5 days. 01/19/22 13:59 Blood - Blood Anaerobic Blood Culture - Final No growth in 5 days. 01/19/22 14:54 Nasopharnyx Influenza Type A Antigen Screen - Final 01/19/22 14:54 Nasopharnyx Influenza Type B Antigen Screen - Final Assessment/ Plan: Nephrology No dyspnea No chest pain Feeling better and ready to go home No acute events overnight Vitals, medications, blood work and imaging reviewed in the chart. General: In no apparent distress, Cooperative HEENT: Atraumatic Neck: Supple Respiratory: CTA/ Normal respiratory effort Cardiovascular: No edema, Regular rate/rhythm Gastrointestinal: Soft and benign, Non-distended Musculoskeletal: No clubbing, No contractures Integumentary: No rashes, No cyanosis Neurological: Normal speech Laboratory Data (last 24 hrs) 01/19/22 13:59: PT 18.8 H, INR 1.69 01/19/22 13:59: WBC 5.7, Hgb 9.8 L, Hct 29.1 L, Plt Count 69 L 01/19/22 13:59: Sodium 138, Potassium 3.7, BUN 12, Creatinine 2.58 H, Glucose 84, Magnesium 1.7 L, Total Bilirubin 0.6, AST 37, ALT 17, Alkaline Phosphatase 60 Imagings Data: EXAM DESCRIPTION: RAD - Chest Single View - 01/19/2022 1:26 pm CLINICAL HISTORY: DYSPNEA COMPARISON: Two view chest January 13 TECHNIQUE: AP portable chest image was obtained 01/19/2022 1:26 pm . FINDINGS: Baseline fibrotic lung pattern again noted. Retrocardiac left base is hazy poorly visualized left hemidiaphragm. Left pneumonia is suspected needs correlation with exam findings. No significant failure or volume overload. Right-sided double-lumen dialysis catheter in place. Heart and vasculature are normal. No measurable pleural effusion and no pneumothorax. No acute bony abnormality seen. No acute aortic findings suspected. IMPRESSION: Suspected left base pneumonia. Conclusions/Impression: ESRD Proteinuria -HD TIW Hypomagnesemia -Replete prn HTN with CKD/ CHF -Hold Nifedipine Diastolic CHF, A/C Acute respiratory failure suspicious for COPD exacerbation Left base PNA -Continue IV Abx -HD with UF Moderate malnutrition -Continue Nepro Anemia in CKD Thrombocytopenia -Retacrit TIW CKD MBD -Continue Vitamin D Case reviewed with Dr. Soto
[2022-01-24] MEDS ORDERED: NEPRO SHAKE 237 ML CAN PO SCH (21:00)
== END 2022-01-24 14:46 | disposition home health service (06) | DRG 193 ==
LOC: ER 12:07 → ERHOLD 17:49 → 2ND 18:23
PROVIDERS: ADMIT Hospitalist; ATTEND Hospitalist
PROC: 5A1D70Z Performance of Urinary Filtration, Intermittent, Less than 6 Hours Per Day (ICD-10-PCS; principal; 2022-01-21)
PROC: 5A1D70Z Performance of Urinary Filtration, Intermittent, Less than 6 Hours Per Day (ICD-10-PCS; 2022-01-22)
PROC: 5A1D70Z Performance of Urinary Filtration, Intermittent, Less than 6 Hours Per Day (ICD-10-PCS; 2022-01-23)
DX: J10.00 Influenza due to other identified influenza virus with unspecified type of pneumonia (principal); N18.6 End stage renal disease; I50.33 Acute on chronic diastolic (congestive) heart failure; J96.00 Acute respiratory failure, unspecified whether with hypoxia or hypercapnia; I12.0 Hypertensive chronic kidney disease with stage 5 chronic kidney disease or end stage renal disease; I13.2 Hypertensive heart and chronic kidney disease with heart failure and with stage 5 chronic kidney disease, or end stage renal disease; E44.0 Moderate protein-calorie malnutrition; E78.00 Pure hypercholesterolemia, unspecified; E83.42 Hypomagnesemia; D63.1 Anemia in chronic kidney disease; E88.9 Metabolic disorder, unspecified; D69.6 Thrombocytopenia, unspecified; Z85.3 Personal history of malignant neoplasm of breast; Z99.2 Dependence on renal dialysis; Z68.20 Body mass index [BMI] 20.0-20.9, adult; Z87.891 Personal history of nicotine dependence
CPT/HCPCS: 36415; 71045; 80048; 80053; 80061; 80076; 80202; 81003; 81015; 83605; 83735; 83880; 84100; 84145; 84484; 84550; 85025; 85027; 85610; 85652; 86140; 87040; 87804; 90935; 93005; 94640; 94760; 96365; 99285; J0456; J1644; J2250; J2405; J2543; J3370; J7050; U0003